=== PATIENT | female | born 1965 | race Caucasian/White ===

== ENCOUNTER 2017-07-18 09:07 | Day surgery (SDC) | payer OTHER, MEDICAID, SELFPAY ==
[2017-07-18 09:44] VITALS: BP 134/89; PULSE 71; RESP 16; TEMP 36.6; O2SAT 99; BMI 31.6
[2017-07-18] MEDS: LACTATED RINGERS 1,000 ML 200 ML IV (09:45)
--- NOTE | 2017-07-18 11:02 | P.HP_ITS ---
History of Present Illness Chief complaint: [id number] Narrative: Akua Pratt is a 52 year old female Here for screening colonoscopy. This is her 1st exam. She has no blood in her stool and no family history of colon cancer. [facility] Surgical History Status post surgery (07/18/08) Social History household members: significant other Meds Home Medications Medication Instructions Recorded Confirmed Type omeprazole 40 mg PO QDAY #0 05/31/12 07/18/17 History NORETHIND/ETHINYL 35 - 1 tab PO QDAY 07/18/17 07/18/17 History (#ORTHO-NOVUM ) albuterol sulfate [Ventolin HFA] 90 mcg INH Q4H 07/18/17 07/18/17 History citalopram 10 mg PO BEDTIME 07/18/17 07/18/17 History Generic Name Dose Route Start Last Admin Trade Name Freq PRN Reason Stop Dose Admin Flumazenil 0.2 mg 07/18/17 07:39 Romazicon IV PRN PRN Benzodiazepine Reversal Lactated Ringer's 1,000 mls @ 200 mls/hr 07/18/17 07:45 07/18/17 09:45 Lactated Ringers IV 200 mls/hr CONT JOSE M Administration Naloxone HCl 0.2 mg 07/18/17 07:39 Narcan IV Q2MIN PRN Opiate Reversal Allergies Allergy/AdvReac Type Severity Reaction Status Date / Time morphine [MORPHINE] Allergy Mild ITCH Verified 07/18/17 09:56 acetaminophen [From PERCOCET] Allergy Unknown Verified 07/18/17 09:56 oxycodone [From PERCOCET] Allergy Unknown Verified 07/18/17 09:56 Review of Systems Review of Systems All systems reviewed & are unremarkable except as noted in HPI and below Psychiatric Comments: Suffers from anxiety on medication. Exam Vital Signs (past 8 hours): Vital Signs - 8 hr 3 07/18/17 09:44 Temperature 97.8 F Pulse Rate 71 Respiratory Rate 16 Blood Pressure 134/89 H Pulse Oximetry 99 Pulse Oximetry 99 Oxygen Delivery Method Room Air Narrative Exam Narrative: Co operative in no apparent distress. Lungs are clear to auscultation without rales or rhonchi. Heart regular rate and rhythm without murmur or gallop. Abdomen is soft nontender without mass. Patient is alert and oriented x3. Assessment & Plan Plan: Plan: I have discussed the procedure and the rationale with the patient including risks of bleeding, perforation which would necessitate a major operation, failure to find remove all lesions and the potential to tattoo. They appeared to understand and wished to proceed.
--- NOTE | 2017-07-18 11:02 | PM.PREOP ---
Pre-operative Note Interval Note Pre-op Check: History & Physical exam performed today H&P completed within 30 days and has changed as indicated here:: None ASA Class (for procedural sedation): I
[2017-07-18] MEDS: fentaNYL 250 MCG/5 ML INJ IV (11:11)
[2017-07-18] MEDS: MIDAZOLAM 5 MG/5 ML VIAL IV (11:11)
--- NOTE | 2017-07-18 11:22 | SUR.OPER ---
post Fentanyl administration patient had episode of bigeminy
--- NOTE | 2017-07-18 11:48 | PM.OP.ENDO ---
Operative Date/Time/Diagnoses - Date of procedure: 07/18/17 Time of procedure: 11:48 Pre-op diagnosis: Screening for colon cancer. This is her 1st exam. She is 52. Post-op diagnosis: same (Diverticulosis of the sigmoid colon- occasional) Procedure & Clinicians Study performed: Colonoscopy Same procedure as scheduled: Yes Indications: Age 52 Surgeon: Cristi Milian Procedure Notes SCOAP/Timeout: Performed Procedure in detail: The patient was placed in the left lateral decubitus position and underwent IV sedation directed by the surgeon consisting of fentanyl and Versed. Digital exam was unremarkable. The scope was inserted and advanced through the rectum into the sigmoid, descending, transverse, and ascending colon. We had to insert a stiffener repositioned the patient blood pressure in order to go through some of this colon. The patient was noted to have occasional sigmoid diverticulosis.. The cecum was reached identified by the ileocecal valve and the appendiceal opening. The ileocecal valve was not cannulated. The scope was gradually brought out. No Polyps were found . The scope ultimately was retroflexed in the rectum. The appearance was[normal except for some diffuse small old hemorrhoids without ulceration]. The scope was removed and the patient tolerated the procedure wellThe patient was placed in the left lateral decubitus position and underwent IV sedation directed by the surgeon consisting of fentanyl and Versed. Digital exam was unremarkable. The scope was inserted and advanced through the rectum into the sigmoid, descending, transverse, and ascending colon. The patient was noted to have occasional sigmoid diverticulosis.. The cecum was reached identified by the ileocecal valve and the appendiceal opening. The ileocecal valve was not cannulated. The scope was gradually brought out. No Polyps were found . The scope ultimately was retroflexed in the rectum. The appearance was[normal except for some diffuse small old hemorrhoids without]. The scope was removed and the patient tolerated the procedure well Scope withdrawal time: 6 min Sedation minutes: 33 Findings: diverticulosis (Sigmoid) and internal hemorrhoids Specimen(s): none sent Complications: none Recommendations: Colonscopy in 10 years Follow up: as needed Disposition: PACU
[2017-07-18 11:49] VITALS: BP 126/78; PULSE 76; RESP 14; TEMP 36.4; O2SAT 95
[2017-07-18 11:55] VITALS: BP 133/81; PULSE 79; RESP 18; O2SAT 98
[2017-07-18 12:00] VITALS: BP 144/95; PULSE 68; RESP 16; TEMP 36.3; O2SAT 100
== END 2017-07-18 12:25 | disposition home or self-care (01) ==
PROVIDERS: Family Provider Family Medicine; PCP Family Medicine; Visit Provider Specialist
PROC: 0DJD8ZZ Inspection of Lower Intestinal Tract, Via Natural or Artificial Opening Endoscopic (ICD-10-PCS; CPT 45378; principal; 2017-07-18 09:45)
DX: Z12.11 Encounter for screening for malignant neoplasm of colon (principal); K57.30 Diverticulosis of large intestine without perforation or abscess without bleeding; K64.8 Other hemorrhoids
CPT/HCPCS: 45378; 99152; 99153; J2250; J3010

== ENCOUNTER → 2017-10-09 09:12 | Outpatient (CLI) | payer OTHER, MEDICAID, SELFPAY ==
--- NOTE | 2017-10-09 | DI.RAD.S_ITS ---
PROCEDURE: XR FOOT RT MIN 3V INDICATIONS: RIGHT FOOT PAIN TECHNIQUE: 3 views of the foot were acquired. COMPARISON: None. FINDINGS: Bones: No fractures or dislocations. No suspicious bony lesions. Soft tissues: No tibiotalar joint effusion. Achilles tendon appears normal. IMPRESSION: No acute or subacute bony abnormality Dictated by: Solo Cevallos M.D. on 10/09/2017 at 9:50 Approved by: Solo Cevallos M.D. on 10/09/2017 at 9:51
== END ==
PROVIDERS: Family Provider Family Medicine; PCP Family Medicine; Visit Provider Nurse Practitioner Family
DX: M79.671 Pain in right foot (principal)
CPT/HCPCS: 73630

== ENCOUNTER → 2018-03-23 10:30 | Outpatient (CLI) | payer OTHER, MEDICAID, SELFPAY ==
[2018-03-23 10:46] LABS: Bacteria Urine None Seen; RBC Urine None Seen (0-5/HPF); WBC Urine None Seen (0-5/HPF)
[2018-03-23 12:15] LABS: Appearance Urine UA CLEAR; Bilirubin Urine UA NEGATIVE (NEGATIVE); Color Urine UA YELLOW; Glucose Urine UA NEGATIVE (Negative); Ketones Urine UA NEGATIVE (NEGATIVE); Leukocyte Esterase Urine UA TRACE (NEGATIVE); Nitrite Urine UA NEGATIVE (Negative); Occult Blood Urine UA NEGATIVE (Negative); Protein Urine UA NEGATIVE (Negative); Urobilinogen Urine UA 0.2 E.U./dL (0.2); pH Urine UA 6.5 (4.5-8.0)
[2018-03-23 12:20] LABS: Culture Indicated Urine Cult Not Indicated; Urine Comments Microscopic Normal
== END ==
PROVIDERS: Family Provider Family Medicine; PCP Family Medicine
DX: M54.5 Low back pain (principal)
CPT/HCPCS: 81001

== ENCOUNTER → 2018-04-20 13:45 | Outpatient (CLI) | payer OTHER, MEDICAID, SELFPAY ==
--- NOTE | 2018-04-20 | DI.CT.S_ITS ---
PROCEDURE: CT ABDOMEN PELVIS W CON INDICATIONS: ABDOMINAL PAIN TECHNIQUE: After the administration of oral and intravenous contrast, 5 mm thick sections acquired from the diaphragms to the symphysis. 5 mm thick coronal and sagittal reformats were performed. For radiation dose reduction, the following was used: automated exposure control, adjustment of mA and/or kV according to patient size. COMPARISON: [facility], [place], ABDOMEN/PELVIS WITH CONTRAST, 05/31/2012, 21:24. FINDINGS: Image quality: Excellent. ABDOMEN: Lung bases: 4 mm nodular density in posterior medial aspect of right lung base is again seen unchanged from 2013 study and likely represent benign process. Heart size is normal. Solid organs: Liver is normal in size and enhancement. There is hepatic steatosis. Gallbladder is surgically absent. Biliary system is non-dilated. Pancreas enhances normally. Spleen is normal in size and enhancement. No adrenal nodules. Kidneys are normal in size and enhancement, without hydronephrosis. Peritoneum and bowel: Stomach, small bowel, and colon loops are normal in caliber and wall thickness. No free fluid or air. The appendix is visualized and is within normal limits. Nodes and vessels: No retroperitoneal or mesenteric adenopathy. Aorta and inferior vena cava are normal in caliber. Miscellaneous: No ventral hernias. PELVIS: Genitourinary: Bladder wall thickness is normal. Uterus and bilateral adnexa show no gross abnormality. Miscellaneous: No inguinal hernias or adenopathy. Bones: No suspicious bony lesions. No vertebral body compression fractures. IMPRESSION: 1. No acute inflammatory process within the abdomen or pelvis. No finding to explain patient's clinical symptoms. 2. Mild hepatic steatosis. Prior cholecystectomy. 3. Stable appearing 4 mm right lower lobe nodule, consistent with benign process. Dictated by: Mark Bhatia M.D. on 04/20/2018 at 16:08 Approved by: Mark Bhatia M.D. on 04/20/2018 at 16:12
== END ==
PROVIDERS: Family Provider Family Medicine; PCP Family Medicine; Visit Provider Family Medicine
DX: R10.9 Unspecified abdominal pain (principal); K76.0 Fatty (change of) liver, not elsewhere classified; R91.1 Solitary pulmonary nodule; Z90.49 Acquired absence of other specified parts of digestive tract
CPT/HCPCS: 74177; Q9967

== ENCOUNTER → 2018-10-07 14:31 | Outpatient (CLI) | payer OTHER, SELFPAY ==
--- NOTE | 2018-10-07 | DI.RAD.S_ITS ---
PROCEDURE: XR CERVICAL SPINE 2V OR 3V INDICATIONS: NECK PAIN TECHNIQUE: 3 view(s) of the cervical spine were acquired. COMPARISON: None. FINDINGS: Bones: No fractures or dislocations to the T1 level. Note is made of moderately severe to severe degenerative disc disease and mild to moderate facet osteoarthritis from C4-C7, with likelihood of spinal and foraminal stenosis at C5-6 and possibly at the levels immediately above and below. The lateral masses of C1 appear intact on the odontoid view. No suspicious bony lesions. Soft tissues: No prevertebral soft tissue swelling. IMPRESSION: No acute trauma found. Moderately severe degenerative disc disease over the middle third of the cervical spine as noted with likelihood of spinal and foraminal stenosis centered on C5-6. Dictated by: Chandrakant Mota M.D. on 10/07/2018 at 15:57 Approved by: Chandrakant Mota M.D. on 10/07/2018 at 15:58
== END ==
PROVIDERS: Family Provider Family Medicine; PCP Family Medicine; Visit Provider Family Medicine
DX: M50.321 Other cervical disc degeneration at C4-C5 level (principal); M47.812 Spondylosis without myelopathy or radiculopathy, cervical region
CPT/HCPCS: 72040

== ENCOUNTER 2019-01-14 05:00 | Emergency (ER) | payer OTHER, MEDICAID, SELFPAY ==
[2019-01-14 05:12] VITALS: BP 141/106; PULSE 85; RESP 18; TEMP 36.8; O2SAT 97
--- NOTE | 2019-01-14 05:22 | ED.BACK ---
HPI - Back Pain/Injury General Chief Complaint: Back Pain/Injury Stated Complaint: cant sleep so much pain/burning in back/arm numb Time Seen by Provider: 01/14/19 05:22 Source: patient Mode of arrival: Ambulatory Limitations: no limitations History of Present Illness HPI Narrative: The patient was injured on the job October 2018. She works for the [email or web address]. She was backing up a tractor, the brake was set. She actually slammed into the back wall, her back hitting against wall. And perhaps suffering whiplash. She was briefly dazed, then recovered. Since that time she has had back issues. She has had mid back pain and lower back pain. additional neck discomfort is resolved. She has been treated with medications, she felt physical therapy. Her primary care doctor has sent her to a undercollar maker. Neurologic testing apparently revealed a deficit to the right leg. She also was noted to have right carpal tunnel syndrome. She has no weakness in the right shoulder, or in the arm. Although she is positive for right CTS, there is no numbness or weakness in the right arm, neurologic findings or in the hand only. She does have low back pain, with pain radiating down the right lateral leg to the right ankle/foot. She has no bowel or bladder incontinence. She is ambulatory. She feels weakness in the right foot. An MRI was discussed over 1 month ago, but has not yet been scheduled to the patient's knowledge. The MRI has to be approved/moderated to L&I. She is here tonight due to back pain rating down her right leg, she cannot sleep. In addition to her current medications she was previously on Neurontin prescribed by her PCM. She has stopped the medication because of feeling ill on the medication, sedation and weight gain. Related Data Previous Rx's Medication Instructions Recorded prednisone 60 mg PO DAILY 5 Days #15 tab 01/14/19 Allergies Allergy/AdvReac Type Severity Reaction Status Date / Time morphine [MORPHINE] Allergy Mild ITCH Verified 07/18/17 09:56 acetaminophen [From PERCOCET] Allergy Unknown Verified 07/18/17 09:56 oxycodone [From PERCOCET] Allergy Unknown Verified 07/18/17 09:56 Review of Systems Review of Systems ROS Unobtainable: All systems reviewed & are unremarkable except as noted in HPI and below Constitutional Constitutional: Denies chills, Denies fever(s), Denies lethargy and Reports weakness Cardiovascular Cardiovascular: Denies chest pain, Denies irregular heart rhythm, Denies lightheadedness, Denies palpitations, Denies dyspnea and Denies orthopnea Respiratory Respiratory: Denies cough, Denies dyspnea and Denies wheezing Gastrointestinal Gastrointestinal: Denies abdominal pain, Denies change in bowel habits, Denies diarrhea, Denies nausea and Denies vomiting Musculoskeletal Musculoskeletal: Reports back pain, Reports muscle weakness, Reports numbness (Right foot) and Denies tingling Integumentary/Breasts Skin/Breast: Denies pruritus, Denies erythema, Denies rash and Denies wounds Neurologic Neurologic: Reports numbness (Right foot), Denies tingling and Reports weakness Endocrine Endocrine: Denies palpitations Allergic/Immunologic Allergic/Immunologic: Denies wheezing Patient History Medical History (Updated 01/14/19 @ 08:09 by Paco Hendricks MD) Acute carpal tunnel syndrome of right wrist (Acute) Lumbar back pain with radiculopathy affecting right lower extremity (Acute) Surgical History (Updated 01/14/19 @ 08:09 by Paco Hendricks MD) No significant past surgical history (Acute) Status post surgery (07/18/08) Social History household members: significant other Smoking Status: Never smoker alcohol intake frequency: a few times a month Substance Use Type: does not use Exam Initial Vital Signs Initial Vital Signs: Vital Signs Temperature 98.2 F 01/14/19 05:12 Pulse Rate 85 01/14/19 05:12 Respiratory Rate 18 01/14/19 05:12 Blood Pressure 141/106 H 01/14/19 05:12 Pulse Oximetry 97 01/14/19 05:12 Const General: cooperative and well developed Nutritional Appearance: well nourished Orientation: alert, awake, oriented x3 and not confused [facility] Head: normocephalic and atraumatic Neck Neck: full ROM and No tender Resp Effort & Inspection: normal respiratory effort, able to speak in complete sentences, no respiratory distress and no use of accessory muscles Auscultation: clear to auscultation bilaterally, no rales, no rhonchi and no wheezes Cardio Rate: regular rate Rhythm: regular rhythm Heart Sounds: S1 normal, S2 normal, no click, no gallops, no murmurs and no rubs Pulses: normal peripheral pulses GI Inspection: non-distended Palpation: soft, no hepatosplenomegaly and No tender Auscultation: normal bowel sounds Back/Spine/Pelvis Back: No CVA tenderness Cervical Spine: cervical ROM normal and No pain with cervical ROM Thoracic/Lumbar Spine: paraspinal tenderness (On the right) and straight leg raise positive (On the right) Sacroiliac Joints: nontender Skin General: no rashes or lesions noted, No jaundice and No petechiae Neuro General: alert, oriented x3 and gait normal Speech: speech normal Other: Decreased light touch sensation in the right lower extremity in the L4 and L5 distribution. Decreased strength with right foot plantar flexion. However, she can toe stand, but was stumbling. Dorsalis pedis pulses are normal both lower extremities. Extrem General: full ROM, no clubbing, cyanosis or edema, no pedal edema and no calf tenderness Right upper extremity: full ROM, shoulder/upper arm (Normal range of motion, normal strength.), elbow/forearm (Normal range of motion, normal strength.), wrist (Positive Tinel's) and hand (No atrophy, no weakness.) Course Course Course Narrative: The patient has right carpal tunnel syndrome, no right upper extremity radiculopathy. She does have right lower extremity radiculopathy. She has apparently gone through nerve conduction studies verifying both the carpal tunnel syndrome as well as the right lower extremity issue. She is already on pain medications, I will give her a 5 day burst of steroids. She has scheduled follow-up with her PCM later this week. I suggested she pressed both her PCM as well as the consulting physician requesting an effort for faster evaluation by MRI. Orders Ordered: Discontinued Medications Ketorolac Tromethamine (Toradol) 60 mg IM NOW ONE Stop: 01/14/19 05:55 Last Admin: 01/14/19 06:07 Dose: 60 mg Documented by: MMCFARL Prednisone (Deltasone) 60 mg PO NOW ONE Stop: 01/14/19 05:55 Last Admin: 01/14/19 06:03 Dose: Not Given Documented by: MMCFARL Prednisone (Deltasone) 60 mg PO NOW ONE Stop: 01/14/19 06:03 Last Admin: 01/14/19 06:07 Dose: 60 mg Documented by: MMCFARL Vital Signs Vital signs: Vital Signs - 8 hr 01/14/19 05:12 01/14/19 06:37 Temperature 98.2 F Pulse Rate 85 81 Respiratory Rate 18 16 Blood Pressure 141/106 H 140/97 H Pulse Oximetry 97 99 Discharge Plan Departure Patient Disposition: Home Clinical Impression: Lumbar back pain with radiculopathy affecting right lower extremity, Acute carpal tunnel syndrome of right wrist Discharge Date/Time: 01/14/19 06:37 Instructions: Carpal Tunnel Syndrome, DI for Back Pain With Sciatica Activity Restrictions/Additional Instructions: You should be using your right wrist splint especially when typing and especially when at work. Continue meloxicam. Prednisone 60 mg daily for 5 days. Follow-up with your doctor to discuss ongoing pain management for the back pain. understand a lumbar MRI is in process, followup that the L&I specialist was moderating the L&I process. Prescriptions: New prednisone 20 mg tablet 60 mg PO DAILY 5 Days Qty: 15 RF: 0 Referrals: Paco Angel MD [Primary Care Provider] -
[2019-01-14] MEDS: predniSONE 20 MG TABLET 60 MG PO (06:07)
[2019-01-14] MEDS: KETOROLAC 60 MG/2 ML VIAL IM (06:07)
[2019-01-14 06:37] VITALS: BP 140/97; PULSE 81; RESP 16; O2SAT 99
== END 2019-01-14 06:37 | disposition home or self-care (01) ==
PROVIDERS: Emergency Provider Emergency Medicine; PCP Family Medicine
DX: M54.16 Radiculopathy, lumbar region (principal); G56.01 Carpal tunnel syndrome, right upper limb; Y99.0 Civilian activity done for income or pay
CPT/HCPCS: 96372; 99282; 99283; J1885

== ENCOUNTER → 2019-02-04 08:31 | Outpatient (CLI) | payer OTHER, MEDICAID, SELFPAY ==
--- NOTE | 2019-02-04 | DI.MRI.S_ITS ---
PROCEDURE: MR LUMBAR SPINE WO CON INDICATIONS: radiculopathy, lumbosacral region TECHNIQUE: Noncontrast sagittal T1 spin echo and T2 fast echo, sagittal STIR, axial T1 and T2 fast spin echo through the lumbar spine. In cases with scoliosis, additional coronal T2 fast spin echo may be performed. COMPARISON: [facility], [place], XR LUMBAR SPINE 2 OR 3 VIEWS, 12/03/2018, 10:15. FINDINGS: Image quality: Excellent. Alignment and Curvature: There is trace retrolisthesis is at L4-L5. Bone Marrow: Marrow is of normal overall signal. No acute vertebral body compression fractures. Spinal Cord: Conus medullaris terminates at the L1-L2 level. Visualized cord demonstrates normal signal and size. Paraspinous Soft Tissues: No paravertebral masses. L1-L2: Normal appearance. L2-L3: Normal appearance. L3-L4: Normal appearance. L4-L5: Normal appearance of intervertebral disc. Moderate right and mild left facet arthropathy. The central canal is patent. No femoral stenosis. L5-S1: Preserved disc height. Mild disc desiccation. There is diffuse posterior disc bulge and posterior central annular tear. Mild bilateral facet arthropathy. The central canal is mildly narrowed. No significant foraminal stenosis. No definitive nerve root impingement. IMPRESSION: 1. Degenerative disc disease at L5-S1 with posterior disc bulge and posterior central annular tear. 2. Moderate to mild degenerative facet disease in the lower lumbar spine. 3. Mild central canal stenosis at L5-S1. 4. No significant foraminal stenosis. Dictated by: Michele Cortes M.D. on 02/04/2019 at 14:08 Approved by: Michele Cortes M.D. on 02/04/2019 at 17:54
== END ==
PROVIDERS: PCP Family Medicine; Visit Provider Preventive Medicine Occupational Medicine
DX: M51.17 Intervertebral disc disorders with radiculopathy, lumbosacral region (principal); M47.26 Other spondylosis with radiculopathy, lumbar region; M47.27 Other spondylosis with radiculopathy, lumbosacral region; M48.07 Spinal stenosis, lumbosacral region
CPT/HCPCS: 72148

== ENCOUNTER 2019-04-18 10:32 | Emergency (ER) | payer OTHER, MEDICAID, SELFPAY ==
[2019-04-18 10:34] VITALS: BP 174/84; PULSE 73; RESP 15; TEMP 36.9; O2SAT 99; BMI 37.0
[2019-04-18 11:37] VITALS: BP 143/91; PULSE 77; RESP 20; O2SAT 98
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
--- NOTE | 2019-04-18 12:02 | DI.RAD.S_ITS ---
PROCEDURE: XR LUMBAR SPINE 2-3V INDICATIONS: injury with low back pain TECHNIQUE: 3 views of the lumbar spine were acquired. COMPARISON: [facility], MR, MR LUMBAR SPINE WO CON, 02/04/2019, 9:17. [facility], CT, ABDOMEN/PELVIS WITH CONTRAST, 05/31/2012, 21:24. [facility], CR, XR CHEST 1V, 04/18/2019, 12:41. [facility], CT, CT CERVICAL SPINE WO CON, 04/18/2019, 12:36. [facility], CT, CT HEAD/BRAIN WO CON, 04/18/2019, 12:36. FINDINGS: Bones: 5 [id number] vertebrae are present. There is normal bony alignment. No vertebral body compression fractures. No suspicious bony lesions. Mild to moderate disc space narrowing is seen at the L5-S1 level. The disc heights otherwise appear well-preserved. Soft tissues: Overlying bowel gas pattern is normal. No suspicious soft tissue calcifications. Cholecystectomy clips are seen. IMPRESSION: No acute bony injury is seen. Focal L5-S1 degenerative change. Dictated by: Vineet Parr M.D. on 04/18/2019 at 12:15 Approved by: Vineet Parr M.D. on 04/18/2019 at 12:16
--- NOTE | 2019-04-18 12:02 | DI.CT.S_ITS ---
PROCEDURE: CT CERVICAL SPINE WO CON INDICATIONS: neck injury with pain TECHNIQUE: Noncontrast 3 mm thick sections acquired from the skull base to the T4 level. Sagittal and coronal reformats were then constructed. For radiation dose reduction, the following was used: automated exposure control, adjustment of mA and/or kV according to patient size. COMPARISON: [facility], CR, XR CERVICAL SPINE 2V OR 3V, 10/07/2018, 14:39. [facility], CT, CT HEAD/BRAIN WO CON, 04/18/2019, 12:36. [facility], CR, XR LUMBAR SPINE 2-3V, 04/18/2019, 12:41. [facility], CR, XR CHEST 1V, 04/18/2019, 12:41. [facility], CR, CERVICAL SPINE 2 OR 3 VIEWS, 11/28/2010, 8:53. FINDINGS: Image quality: This examination is somewhat limited by quantum mottle artifact. Bones: No fractures or dislocations. Visualized superior ribs are intact. Degenerative changes are seen, with mild to moderate disc space narrowing at the C5-C6 level. Partially bridging anterior osteophytes are seen at the C4-C5 level was selected endplate osteophytes are seen at C4-C5 and at C5-C6. Milder degenerative changes are seen elsewhere. Soft tissues: Prevertebral soft tissues are normal in thickness. No paravertebral hematomas. No apical pneumothoraces. IMPRESSION: Degenerative changes, without an acute bony identified. No displaced fractures are seen. Dictated by: Vineet Parr M.D. on 04/18/2019 at 12:13 Approved by: Vineet Parr M.D. on 04/18/2019 at 12:14
--- NOTE | 2019-04-18 12:02 | DI.RAD.S_ITS ---
PROCEDURE: XR CHEST 1V INDICATIONS: right chest wall pain TECHNIQUE: One view of the chest was acquired. COMPARISON: [facility], CR, XR LUMBAR SPINE 2-3V, 04/18/2019, 12:41. [facility], CT, CT CERVICAL SPINE WO CON, 04/18/2019, 12:36. [facility], CT, CT HEAD/BRAIN WO CON, 04/18/2019, 12:36. [facility], CT, PE STUDY (CTA CHEST), 05/31/2012, 21:24. [facility], RG, XR CXR 2V, 10/11/2005, 12:02. FINDINGS: Surgical changes and devices: None. Lungs and pleura: An incomplete inspiratory result is noted, causing a crowded appearance to the lung markings. No focal infiltrates are seen. No pneumothorax or significant pleural effusions are seen. Mediastinum: Mediastinal contours appear normal. Heart size is normal. Bones and chest wall: No suspicious bony lesions. No displaced fractures can be seen. Age-appropriate bony degenerative changes are seen. Overlying soft tissues appear unremarkable. IMPRESSION: Limited portable chest examination, without a significant cardiopulmonary abnormality identified. No displaced fractures can be seen. Dictated by: Vineet Parr M.D. on 04/18/2019 at 12:14 Approved by: Vineet Parr M.D. on 04/18/2019 at 12:15
--- NOTE | 2019-04-18 12:02 | DI.CT.S_ITS ---
PROCEDURE: CT HEAD/BRAIN WO CON INDICATIONS: head ache weakness TECHNIQUE: Noncontrast 4.5 mm thick angled axial sections acquired from the foramen magnum to the vertex, with coronal and sagittal reformats. For radiation dose reduction, the following was used: automated exposure control, adjustment of mA and/or kV according to patient size. COMPARISON: [facility], CR, XR CHEST 1V, 04/18/2019, 12:41. [facility], CR, XR LUMBAR SPINE 2-3V, 04/18/2019, 12:41. [facility], CT, CT CERVICAL SPINE WO CON, 04/18/2019, 12:36. FINDINGS: Image quality: Excellent. CSF spaces: Basal cisterns are patent. No extra-axial fluid collections. Ventricles are normal in size and shape. Brain: No midline shift. No intracranial masses or hemorrhage. Vázquez-white matter interface is normal. Skull and face: Calvarium and visualized facial bones are intact, without suspicious lesions. Sinuses: Visualized sinuses and mastoids are clear. IMPRESSION: Normal intracranial study. No acute intracranial hemorrhage is seen. If there is strong clinical suspicion for an acute stroke, please consider an MRI for further evaluation, as it is more sensitive (assuming that there is no contraindication to MRI). Dictated by: Vineet Parr M.D. on 04/18/2019 at 12:12 Approved by: Vineet Parr M.D. on 04/18/2019 at 12:12
[2019-04-18 13:41] LABS: Add Manual Diff / Slide Review NO; Basophils Absolute Auto 0 /uL (0-100); Basophils Percent Auto 0.7 % (0-2); Eosinophils Absolute Auto 100 /uL (0-450); Eosinophils Percent Auto 2.6 % (2-4); Hematocrit 40.2 % (36-46); Hemoglobin 13.4 g/dL (12.0-16.0); Lymphocytes Absolute Auto 1200 /uL (1100-4500); Lymphocytes Percent Auto 28.5 % (25-40); Mean Corpuscular HGB Conc 33.3 % (30-36); Mean Corpuscular Hemoglobin 29.6 PG (26-34); Monocytes Absolute Auto 300 /uL (0-900); Neutrophils Absolute Auto 2600 /uL (1500-7000); Neutrophils Percent Auto 61.2 % (50-75); Platelet Count 231 X10^3/uL (150-400); Red Blood Cell Count 4.51 X10^6/uL (4.0-5.2); Red Cell Distribution Width 13.5 % (11.6-14.8); White Blood Cell Count 4.3 X10^3/uL (4.5-11.0)
[2019-04-18 14:06] LABS: Alanine Aminotransferase 39 IU/L (<35); Albumin 4.9 g/dL (3.5-5.0); Albumin Globulin Ratio 1.4 (1.0-2.8); Alkaline Phosphatase 71 U/L (38-126); Aspartate Aminotransferase 36 IU/L (14-36); BUN Creatinine Ratio 22.5 (6-22); Bilirubin Total 0.6 mg/dL (0.2-1.3); Blood Urea Nitrogen 18 mg/dL (7-17); Calcium 9.4 mg/dL (8.4-10.2); Carbon Dioxide 27 mmol/L (22-32); Chloride 105 mmol/L (98-107); Creatine Kinase 133 U/L (30-135); Estimated Glomerular Filt Rate > 60.0 mL/min (>60); Globulin 3.6 g/dL (1.7-4.1); Glucose 118 mg/dL (70-100); HEMOLYSIS < 15 (0-50); Magnesium 2.2 mg/dL (1.6-2.3); Potassium 3.9 mmol/L (3.4-5.1); Sodium 142 mmol/L (137-145); Total Protein 8.5 g/dL (6.3-8.2)
[2019-04-18] MEDS: KETOROLAC 60 MG/2 ML VIAL 30 MG IV (14:25)
[2019-04-18] MEDS: SODIUM CHLORIDE 0.9% 1,000 ML 1000 ML IV (14:26)
--- NOTE | 2019-04-18 14:33 | PC.NURSE ---
reports seeing a chiropractor after a work injury. states after she went to the chiropractor she has been having increasing weakness.
== END 2019-04-18 14:55 | disposition home or self-care (01) ==
PROVIDERS: Emergency Provider Emergency Medicine; PCP Family Medicine
DX: M54.2 Cervicalgia (principal); R41.0 Disorientation, unspecified; M54.5 Low back pain; R51 Headache
CPT/HCPCS: 36415; 70450; 71045; 72100; 72125; 80053; 82550; 83735; 85025; 96374; 99284; J1885

== ENCOUNTER 2020-05-15 14:20 | Emergency (ER) | payer OTHER, MEDICAID, SELFPAY ==
[2020-05-15 14:36] VITALS: BP 174/88; PULSE 61; RESP 18; TEMP 36.9; O2SAT 99; BMI 38.0
--- NOTE | 2020-05-15 14:36 | DI.RAD.S_ITS ---
PROCEDURE: XR ANKLE RT MIN 3V INDICATIONS: rolled ankle TECHNIQUE: 3 views of the ankle were acquired. COMPARISON: [facility], , ANKLE 3 VIEWS LEFT, 02/05/2017, 15:54. FINDINGS: Bones: Acute transverse fracture through lateral malleolus is seen without significant displacement or angulation at fracture site. Ankle mortise is congruent. No suspicious intraosseous lesion. Soft tissues: Significant lateral ankle soft tissue swelling is seen. No tibiotalar joint effusion. Achilles tendon appears normal. IMPRESSION: Acute nondisplaced lateral malleolus fracture with overlying soft tissue swelling. Dictated by: Mark Bhatia M.D. on 05/15/2020 at 14:41 Approved by: Mark Bhatia M.D. on 05/15/2020 at 14:42
--- NOTE | 2020-05-15 14:46 | PC.NURSE ---
patient trying to step over dog tripped and fell on foot right ankle lateral side has swelling, tenderness and unable to flex, extend, or rotate. She can put a slight amount of weight on it.
--- NOTE | 2020-05-15 15:42 | ED_ITS ---
HPI - Extremity Injury (Lower) <MICK Villavicencio-BC - Last Filed: 05/15/20 16:29> General Chief Complaint: Extremity Injury, Lower Stated Complaint: Tripped Over Dog, Poss Broken Rt Ankle Time Seen by Provider: 05/15/20 14:42 Source: patient and family Mode of arrival: Family Vehicle Limitations: no limitations History of Present Illness HPI Narrative: The patient is a 55-year-old female nonsmoker who denies pertinent medical history presents with a chief complaint of right ankle pain. She states that she was stepping over a fence, got tangled in a dog and felt a crack on the outside of her right ankle. She took 2 ibuprofen. She states she was able to weightbear. Denies any knee pain. States it is on the outside of her ankle. Denies any previous injuries to the right ankle Related Data Previous Rx's Medication Instructions Recorded cyclobenzaprine 10 mg PO TID PRN #15 tab 04/18/19 naproxen 500 mg PO Q12H PRN #20 tab 04/18/19 hydrocodone-acetaminophen 1 tab PO Q4-6H PRN #14 tab 05/15/20 ondansetron 4 mg PO Q6H PRN #20 tab 05/15/20 Allergies Allergy/AdvReac Type Severity Reaction Status Date / Time morphine [MORPHINE] Allergy Mild ITCH Verified 05/15/20 14:41 acetaminophen [From PERCOCET] Allergy Unknown Verified 05/15/20 14:41 oxycodone [From PERCOCET] Allergy Unknown Verified 05/15/20 14:41 Review of Systems <MICK Villavicencio-BC - Last Filed: 05/15/20 16:29> Review of Systems Narrative: GENERAL: Denies chills, fatigue, malaise, fever, sweats. HEENT: Denies sinus pain, ear pain, sore throat, difficulty swallowing, dizziness. RESPIRATORY: Denies dyspnea, cough, wheezing, hemoptysis, sputum. CARDIOVASCULAR: Denies chest pain, palpitations, orthopnea, edema, GASTROINTESTINAL: Denies nausea, vomiting, abdominal pain, diarrhea, constipation, melena. : Denies dysuria, frequency, incontinence, hematuria, urinary retention. MUSCULOSKELETAL: See HPI SKIN: Denies rash, skin lesions, or other NEUROLOGIC: Denies weakness, headache, numbness, change in speech, confusion, seizures, incoordination. PSYCHIATRIC: No concerning psychosocial issues. 12 point review of systems is negative except for those stated above Patient History <SANTHOSH Villavicencio - Last Filed: 05/15/20 16:29> Medical History (Updated 05/15/20 @ 16:24 by SANTHOSH Villavicencio) Acute carpal tunnel syndrome of right wrist Lumbar back pain with radiculopathy affecting right lower extremity Surgical History No significant past surgical history Status post surgery (07/18/08) Social History household members: significant other Smoking Status: Never smoker Smoking Status: Never smoker alcohol intake frequency: a few times a month Substance Use Type: does not use Exam <SANTHOSH Villavicencio - Last Filed: 05/15/20 16:29> Narrative Exam Narrative: GENERAL: This is a well-nourished, well-developed patient, in no acute distress. HEAD: Atraumatic. Normocephalic. No temporal or scalp tenderness. EYES: Pupils equal round and reactive. Extraocular motions intact. No scleral icterus. No injection or drainage. ENT: Nose without bleeding, purulent drainage or septal hematoma. Wearing a mask. Airway patent. NECK: Trachea midline. No JVD or lymphadenopathy. Supple, nontender, no meningeal signs. CARDIOVASCULAR: Regular rate and rhythm RESPIRATORY: No cough. No increased respiratory effort. No accessory muscle use. EXTREMITIES: Swelling and pain to palpation noted of lateral aspect of right ankle over lateral malleolus. Positive pedal pulses right foot. No pain to palpation right knee, able to flex right knee to 90?. NEURO: AOx3. SKIN: No rash or erythema on visible skin Initial Vital Signs Initial Vital Signs: Vital Signs Temperature 98.4 F 05/15/20 14:36 Pulse Rate 61 05/15/20 14:36 Respiratory Rate 18 05/15/20 14:36 Blood Pressure 174/88 H 05/15/20 14:36 Pulse Oximetry 99 05/15/20 14:36 <Mitzi Gallagher DO - Last Filed: 05/16/20 09:22> Initial Vital Signs Initial Vital Signs: Vital Signs Temperature 98.4 F 05/15/20 14:36 Pulse Rate 61 05/15/20 14:36 Respiratory Rate 18 05/15/20 14:36 Blood Pressure 174/88 H 05/15/20 14:36 Pulse Oximetry 99 05/15/20 14:36 Procedures <SANTHOSH Villavicencio - Last Filed: 05/15/20 16:29> Orthopedic Splinting/Casting Injury #1: Side: right Lower Extremity Injury Location: ankle Lower Extremity Immobilizer: boot orthosis Post splinting neuro exam: intact Post splinting vascular exam: intact Placed by: Nursing Additional Comments: Patient declined crutches Scores <SANTHOSH Villavicencio - Last Filed: 05/15/20 16:29> GCS [place] coma scale eye opening: Spontaneous [place] coma scale verbal response: Orientated Anthony coma scale motor response: Obey commands Anthony coma scale total score: 15 Course <SANTHOSH Villavicencio - Last Filed: 05/15/20 16:29> Orders Ordered: Discontinued Medications Hydrocodone Bitart/Acetaminophen (Hydrocodone/Acet 5/325 Tablet) 1 tab PO NOW ONE Stop: 05/15/20 15:55 Last Admin: 05/15/20 16:05 Dose: 1 tab Documented by: MADISON Ondansetron HCl (Ondansetron 4 Mg Odt) 4 mg SL NOW ONE Stop: 05/15/20 15:55 Last Admin: 05/15/20 16:05 Dose: 4 mg Documented by: MADISON Vital Signs Vital signs: Vital Signs - 8 hr 05/15/20 14:36 Temperature 98.4 F Pulse Rate 61 Respiratory Rate 18 Blood Pressure 174/88 H Pulse Oximetry 99 <Mitzi Gallagher DO - Last Filed: 05/16/20 09:22> Orders Ordered: Discontinued Medications Hydrocodone Bitart/Acetaminophen (Hydrocodone/Acet 5/325 Tablet) 1 tab PO NOW ONE Stop: 05/15/20 15:55 Last Admin: 05/15/20 16:05 Dose: 1 tab Documented by: MADISON Ondansetron HCl (Ondansetron 4 Mg Odt) 4 mg SL NOW ONE Stop: 05/15/20 15:55 Last Admin: 05/15/20 16:05 Dose: 4 mg Documented by: ZGELEYN Vital Signs Vital signs: Vital Signs - 8 hr 05/15/20 14:36 Temperature 98.4 F Pulse Rate 61 Respiratory Rate 18 Blood Pressure 174/88 H Pulse Oximetry 99 MDM - Extremity Injury (Lower) <Aileen RojasMICK-BC - Last Filed: 05/15/20 16:29> Imaging Data Extremity x-ray #1: Radiologist's Impression: [address] [place] [id number] ReportSigned Patient: Akua Khalil GMR#: [id number]: 1965Acct:[id number]/Sex: 55 / FDate of Service: 05/15/20Loc: EDAccession Number: [id number] Procedure: XR ankle RT min 3V Ordering Provider: Mitzi Gallagher D.O. PROCEDURE: XR ANKLE RT MIN 3V INDICATIONS: rolled ankle TECHNIQUE: 3 views of the ankle were acquired. COMPARISON: [facility], ANKLE 3 VIEWS LEFT, 02/05/2017, 15:54. FINDINGS: Bones: Acute transverse fracture through lateral malleolus is seen without significant displacement or angulation at fracture site. Ankle mortise is congruent. No suspicious intraosseous lesion. Soft tissues: Significant lateral ankle soft tissue swelling is seen. No tibiotalar joint effusion. Achilles tendon appears normal. IMPRESSION: Acute nondisplaced lateral malleolus fracture with overlying soft tissue swelling. Dictated by: Mark Bhatia M.D. on 05/15/2020 at 14:41 Approved by: Mark Bhatia M.D. on 05/15/2020 at 14:42 [facility] Narrative Medical decision making narrative: The patient is a 55-year-old female who presents with a chief complaint of acute right-sided ankle pain after rolling her ankle and feeling a crack. She has a nondisplaced lateral malleolus fracture. She is neurovascularly intact throughout stay in the emergency department. X-rays viewed with Dr. Gallagher and patient was placed in a boot with follow-up with primary care provider/Orthopedics. Patient was given hydrocodone for pain which she tolerated well. I discussed at length rest ice compression elevation as well as coming back to the ER for acute concerns such as decreased circulation. Patient has no questions or concerns upon discharge s brunildaes understanding return precautions as well as follow-up care Discharge Plan Departure Patient Disposition: Home Clinical Impression: Nondisplaced fracture of lateral malleolus Qualifiers: Encounter type: initial encounter Fracture type: closed Laterality: right Qualified Code(s): S82.64XA - Nondisplaced fracture of lateral malleolus of right fibula, initial encounter for closed fracture Instructions: How To Perform RICE (Rest, Ice, Compress, Elevate), How to Use a Walking Boot, DI for Malleolar Fracture Activity Restrictions/Additional Instructions: Thank you for trusting us with your care today. As discussed, you have a nondisplaced fracture of your lateral malleolus. This is essentially the bottom of your fibula. We have placed you in a walking boot. Please use rest ice compression elevation. I sent medications to [facility] in [place]. Please follow-up with primary care provider in the next few days. I have also given contact information to [facility]. Please come back to the emergency department for any acute concerns such as decreased circulation. You have been prescribed narcotic medications. While on these medications you cannot drive or operate heavy machinery. Additionally you cannot sign legal documents or perform any duties such as this. 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 Prescriptions: New hydrocodone-acetaminophen 5-325 mg tablet 1 tab PO Q4-6H PRN (Reason: pain) Qty: 14 RF: 0 ondansetron 4 mg tablet,disintegrating 4 mg PO Q6H PRN (Reason: nausea and vomiting) Qty: 20 RF: 0 No Action naproxen 500 mg tablet,delayed release (DR/EC) 500 mg PO Q12H PRN (Reason: pain) Qty: 20 RF: 0 cyclobenzaprine 10 mg tablet 10 mg PO TID PRN (Reason: muscle spasm) Qty: 15 RF: 0 Referrals: [facility] [Provider Group] Paco Angel MD [Primary Care Provider] - Stand Alone Forms: Work Release Note <Mitzi Gallagher DO - Last Filed: 05/16/20 09:22> Cosign ED Attending Tyrese Attestation: I was immediately available in the department for consultation. Documentation has been reviewed. I agree with assessment and plan.
[2020-05-15] MEDS: HYDROCODONE/ACET 5/325 TABLET 1 TAB PO (16:05)
[2020-05-15] MEDS: ONDANSETRON 4 MG ODT SL (16:05)
[2020-05-15 16:38] VITALS: BP 168/93; PULSE 66; RESP 14; O2SAT 98
== END 2020-05-15 16:41 | disposition home or self-care (01) ==
PROVIDERS: Emergency Provider Nurse Practitioner Family; PCP Family Medicine
DX: S82.64XA Nondisplaced fracture of lateral malleolus of right fibula, initial encounter for closed fracture (principal); X50.1XXA Overexertion from prolonged static or awkward postures, initial encounter
CPT/HCPCS: 73610; 99283

== ENCOUNTER 2021-03-05 21:12 | Emergency (ER) | payer OTHER, MEDICAID, SELFPAY ==
[2021-03-05 21:14] VITALS: BP 177/91; PULSE 82; RESP 20; TEMP 36.4; O2SAT 97; BMI 36.6
--- NOTE | 2021-03-05 21:14 | DI.RAD.S_ITS ---
PROCEDURE: XR CHEST 1V INDICATIONS: chest pain TECHNIQUE: One view of the chest was acquired. COMPARISON: [facility], CR, XR CHEST 1V, 04/18/2019, 12:41. FINDINGS: Surgical changes and devices: None. Lungs and pleura: Lungs are clear. No pleural effusions or pneumothorax. Mediastinum: Mediastinal contours appear normal. Heart size is normal. Bones and chest wall: No suspicious bony lesions. Overlying soft tissues appear unremarkable. IMPRESSION: 1. No acute cardiopulmonary disease. Dictated by: Maximino Serna M.D. on 03/05/2021 at 22:21 Approved by: Maximino Serna M.D. on 03/05/2021 at 22:22
[2021-03-05 21:39] VITALS: PULSE 78; RESP 15; O2SAT 94
[2021-03-05 21:40] VITALS: BP 159/78; PULSE 77; RESP 17; O2SAT 97
[2021-03-05 22:00] VITALS: BP 143/66; PULSE 75; RESP 26; O2SAT 97
[2021-03-05 22:00] LABS: Add Manual Diff / Slide Review NO; Basophils Absolute Auto 0 /uL (0-100); Basophils Percent Auto 0.5 % (0-2); Eosinophils Absolute Auto 100 /uL (0-450); Eosinophils Percent Auto 2.1 % (2-4); Hematocrit 34.4 % (36-46); Hemoglobin 11.7 g/dL (12.0-16.0); Lymphocytes Absolute Auto 1800 /uL (1100-4500); Lymphocytes Percent Auto 30.9 % (25-40); Mean Corpuscular HGB Conc 33.9 % (30-36); Mean Corpuscular Hemoglobin 29.5 PG (26-34); Mean Corpuscular Volume 87.2 fL (80-100); Monocytes Absolute Auto 500 /uL (0-900); Monocytes Percent Auto 8.2 % (3-14); Neutrophils Absolute Auto 3400 /uL (1500-7000); Neutrophils Percent Auto 58.3 % (50-75); Platelet Count 225 X10^3/uL (150-400); Red Blood Cell Count 3.95 X10^6/uL (4.0-5.2); Red Cell Distribution Width 13.2 % (11.6-14.8); White Blood Cell Count 5.8 X10^3/uL (4.5-11.0)
[2021-03-05 22:04] LABS: Prothrombin Time 11.2 SECONDS (10.1-12.7)
[2021-03-05 22:07] LABS: PTT Partial Thromboplastin Tim 35 SECONDS (26.4-36.2)
[2021-03-05 22:09] LABS: Alanine Aminotransferase 42 IU/L (<35); Albumin 4.3 g/dL (3.5-5.0); Albumin Globulin Ratio 1.4 (1.0-2.8); Alkaline Phosphatase 54 U/L (38-126); Aspartate Aminotransferase 37 IU/L (14-36); BUN Creatinine Ratio 22.1 (6-22); Bilirubin Total 0.3 mg/dL (0.2-1.3); Blood Urea Nitrogen 23 mg/dL (7-17); Calcium 9.1 mg/dL (8.4-10.2); Carbon Dioxide 28 mmol/L (22-32); Chloride 108 mmol/L (98-107); Creatine Kinase 96 U/L (30-135); Estimated Glomerular Filt Rate 54.6 mL/min (>60); Glucose 118 mg/dL (70-100); HEMOLYSIS < 15 (0-50); Lipase 174 U/L (23-300); Magnesium 2.1 mg/dL (1.6-2.3); Potassium 4.1 mmol/L (3.4-5.1); Sodium 140 mmol/L (137-145); Total Protein 7.3 g/dL (6.3-8.2)
[2021-03-05 22:21] LABS: Troponin I < 0.012 ng/mL (0.01-0.034)
[2021-03-05 22:30] VITALS: BP 149/72; PULSE 79; RESP 35; O2SAT 96
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
[2021-03-05 22:54] LABS: COVID19 -Nasal RAPID Negative (Negative)
== END 2021-03-05 22:53 | disposition home or self-care (01) ==
PROVIDERS: Emergency Provider Emergency Medicine; PCP Family Medicine
DX: R07.89 Other chest pain (principal); R00.2 Palpitations; Z20.822 Contact with and (suspected) exposure to COVID-19
CPT/HCPCS: 36415; 71045; 80053; 82550; 83690; 83735; 84484; 85025; 85610; 85730; 87635; 93005; 99284; C9803

== ENCOUNTER 2021-03-06 10:46 | Emergency (ER) | payer OTHER, MEDICAID, SELFPAY ==
[2021-03-06 11:28] VITALS: BP 176/93; PULSE 72; RESP 18; TEMP 36.7; O2SAT 99; BMI 36.6
--- NOTE | 2021-03-06 14:40 | ED.GENADULT ---
HPI - General Adult General Chief complaint: Syncope Stated complaint: Feeling faint, right breast numbness. 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 She was seen in the emergency room yesterday with complete workup that was entirely unremarkable. She started her new job today and while she was in her 1st meeting continued to feel these waves of weakness and is here for further evaluation. She does note that she has been more stressed recently. She notes that her blood pressures have been running significantly high with systolics in the 170s to 190s with recently added lisinopril at 5 mg. She had tried amlodipine and found that it did not work well for her. Over the past number of months with job changes she has gained 20-30 lb and believes that this is contributing to all of her symptoms as well. Today she describes these waves of global weakness persisting and has waves of these during our conversation. She seems more emotionally distressed than physically distressed at this time. She denies overt palpitations. She notes that her sclera have been bloodshot more recently particularly in the morning. She has no abdominal pain, vomiting, diarrhea, nausea. No orthopnea or dyspnea. Related Data Previous Rx's Medication Instructions Recorded cyclobenzaprine 10 mg tablet 10 mg PO TID PRN #15 tab 04/18/19 naproxen 500 mg tablet,delayed 500 mg PO Q12H PRN #20 tab 04/18/19 release hydrocodone 5 mg-acetaminophen 325 1 tab PO Q4-6H PRN #14 tab 05/15/20 mg tablet ondansetron 4 mg disintegrating 4 mg PO Q6H PRN #20 tab 05/15/20 tablet hydrochlorothiazide 25 mg tablet 25 mg PO DAILY #30 tab 03/06/21 lisinopril 10 mg tablet 10 mg PO DAILY #30 tab 03/06/21 Allergies Allergy/AdvReac Type Severity Reaction Status Date / Time morphine [MORPHINE] Allergy Mild ITCH Verified 03/06/21 11:33 oxycodone [From PERCOCET] Allergy Unknown Verified 03/06/21 11:33 Review of Systems Review of Systems Narrative: Remainder of complete review of systems is otherwise unremarkable except for that included in the HPI. Patient History Medical History (Updated 03/06/21 @ 15:04 by Altagracia Rondon MD) Acute carpal tunnel syndrome of right wrist Hypertension Lumbar back pain with radiculopathy affecting right lower extremity Surgical History No significant past surgical history Status post surgery (07/18/08) Social History household members: significant other Smoking Status: Never smoker Smoking Status: Never smoker alcohol intake frequency: a few times a month Substance Use Type: does not use Exam Narrative Exam Narrative: General: Healthy appearing, in no acute distress. Able to give a complete and coherent history. Well-nourished well-developed HEENT: Moist mucous membranes, normal sclera with reactive pupils, Neck: No JVD, supple Respiratory: Lungs are clear to auscultation Full and symmetrical air movement Cardiac: Regular rate and rhythm no murmurs no bruits Abdomen: Soft, nontender, good bowel tones, no flank pain Skin: Warm and dry, no rashes Neurologic: Grossly neurologically intact with no obvious asymmetries or abnormalities Extremities: No trauma, well perfused Psych: Cooperative, appropriate insight and affect Initial Vital Signs Initial Vital Signs: Vital Signs Temperature 98.1 F 03/06/21 11:28 Pulse Rate 72 03/06/21 11:28 Respiratory Rate 18 03/06/21 11:28 Blood Pressure 176/93 H 03/06/21 11:28 Pulse Oximetry 99 03/06/21 11:28 Course Vital Signs Vital signs: Vital Signs - 8 hr 03/06/21 11:28 03/06/21 14:44 Temperature 98.1 F Pulse Rate 72 77 Respiratory Rate 18 Blood Pressure 176/93 H 167/90 H Pulse Oximetry 99 99 Medical Decision Making MDM Narrative Medical decision making narrative: 56-year-old woman with waves of global weakness that have been bothering her. Significant increased situational stressors recently and in fact she was fired while she was sitting in the waiting room to see us today. She notes significant weight gain since the summer and feels that this is also affecting her. She is having difficulties with her blood pressure and is finding that numbers are consistently with systolics in the 170-190s. We had a long discussion and opted to not repeat any blood work today after doing it does last night. She is not having any acute clinical findings suggestive of AR, stroke, severe infection or sepsis. I would like to be a bit more assertive in controlling her blood pressures with goals below 140 initially. Will ask her to increase her lisinopril from 5-10 mg and add 25 mg of hydrochlorothiazide. She is more than willing to do this. I asked her to check blood pressures approximately 2 hours after taking medications and then again before bedtime. I suggested that she take no action on the numbers other than writing them down to review with her primary care doctor. We have taken the opportunity to schedule an appointment 03/12, @1015, DR Villegas to follow-up with all of these issues. Discharge Plan Departure Patient Disposition: Home Clinical Impression: Weakness, Hypertension, Situational, disturbance, acute Instructions: DI for High Blood Pressure, DI for Anxiety -- Adult Activity Restrictions/Additional Instructions: Thank you for coming in today As we discussed, I do not think we need to repeat all of the workup that was done last night. Last night's workup was very reassuring and I am not seeing anything to suggest heart attack, stroke or other life-threatening explanation for these waves of weakness that you are experiencing. I suspect that the sensation has multiple factors 1st, we need to be more assertive Carly treating her blood pressure. Your goal is at least 140/80 or lower. I want you to increase your lisinopril to 10 mg a day and add hydrochlorothiazide, a gentle water pill, at 25 mg a day. Please keep track of your blood pressures 2-3 hours after you take her medication in the morning and again before bedtime. You do not need to do anything if the numbers are elevated other than write them down and review them with Dr. Angel when you see him next week Prescriptions were electronically transmitted to [facility] for you I would encourage you to get back to your more aggressive walking regimen, it seemed to work well for you in managing stress as well as helping with weight. I hope that you are a perfect fit with your new job, it will be interesting to hear what you finally choose I wish you the best Prescriptions: New lisinopril 10 mg tablet 10 mg PO DAILY Qty: 30 0RF hydrochlorothiazide 25 mg tablet 25 mg PO DAILY Qty: 30 0RF No Action hydrocodone-acetaminophen 5-325 mg tablet 1 tab PO Q4-6H PRN (Reason: pain) Qty: 14 0RF ondansetron 4 mg tablet,disintegrating 4 mg PO Q6H PRN (Reason: nausea and vomiting) Qty: 20 0RF naproxen 500 mg tablet,delayed release (DR/EC) 500 mg PO Q12H PRN (Reason: pain) Qty: 20 0RF cyclobenzaprine 10 mg tablet 10 mg PO TID PRN (Reason: muscle spasm) Qty: 15 0RF Referrals: Paco Angel MD [Primary Care Provider] -
[2021-03-06 14:44] VITALS: BP 167/90; PULSE 77; O2SAT 99
[2021-03-06 15:20] VITALS: BP 167/90; PULSE 69
[2021-03-06] MEDS: lisinopriL 10 MG TABLET PO (15:20)
== END 2021-03-06 15:30 | disposition home or self-care (01) ==
PROVIDERS: Emergency Provider Emergency Medicine; PCP Family Medicine
DX: R53.1 Weakness (principal); I10 Essential (primary) hypertension; F43.0 Acute stress reaction
CPT/HCPCS: 99283

== ENCOUNTER → 2022-03-23 08:46 | Outpatient (CLI) | payer OTHER, MEDICAID, SELFPAY ==
[2022-03-23 10:15] LABS: Influenza A - CEPHEID Flu A NEGATIVE (NEGATIVE); Influenza B - CEPHEID Flu B NEGATIVE (NEGATIVE); Respiratory Syncytial Virus Negative (Negative)
[2022-03-23 10:19] LABS: COVID-19 CEPHEID 4-PLEX PCR POSITIVE (Negative)
== END ==
PROVIDERS: PCP Family Medicine; Visit Provider Physician Assistant Medical
DX: J06.9 Acute upper respiratory infection, unspecified (principal)
CPT/HCPCS: 0241U

== ENCOUNTER 2022-07-16 09:15 | Inpatient (IN) | payer OTHER, MEDICAID, SELFPAY ==
[2022-07-16] VITALS (86 sets, daily range): BP systolic 98–198; BP diastolic 52–104; PULSE 73–176; RESP 13–36; TEMP 36.2–36.8; O2SAT 93–100; BMI 36.0; BMI 35.9
--- NOTE | 2022-07-16 09:30 | DI.RAD.S_ITS ---
PROCEDURE: XR CHEST 1V INDICATIONS: palpitations TECHNIQUE: One view of the chest was acquired. COMPARISON: [facility], CR, XR CHEST 1V, 03/05/2021, 21:17. [facility], CR, XR CHEST 1V, 04/18/2019, 12:41. FINDINGS: Surgical changes and devices: None. Lungs and pleura: Low lung volumes. Prominent right hilar structures are stable. No dense consolidation or pleural effusion. Mediastinum: Heart size is at the upper limit of normal. Bones and chest wall: No suspicious bony lesions. Overlying soft tissues appear unremarkable. IMPRESSION: No acute radiographic abnormality. Heart size is at the upper limit of normal. Dictated by: Bhavik Up M.D. on 07/16/2022 at 10:03 Approved by: Bhavik Up M.D. on 07/16/2022 at 10:03
--- NOTE | 2022-07-16 09:31 | ED.GENADULT ---
HPI - General Adult General Chief complaint: Arrhythmia/Palpitations Stated complaint: heart pausing/fluttering/lightheaded/weak T-7 Time Seen by Provider: 07/16/22 09:23 Source: patient Mode of arrival: Ambulatory Limitations: no limitations History of Present Illness HPI narrative: Patient is a 57-year-old female who arrives in the emergency department for evaluation of approximately 7 days of having feelings that her heart is beating fast and pausing and fluttering. She also states she is feeling lightheaded. No chest pain or shortness of breath. Has not passed out. No new medications. Has not tried anything for the symptoms prior to arrival. She has had palpitations in the past. Recently did have a stress test and an echocardiogram at the end of last year for arrhythmias. These studies were relatively unremarkable. She does state that she is having some anxiety and has had quite a bit of stress recently with her job what she thought was causing her symptoms. She thought that it would just go away on its own but when it did not that is why she came in today. Related Data Previous Rx's Medication Instructions Recorded cyclobenzaprine 10 mg tablet 10 mg PO TID PRN muscle spasm #15 04/18/19 tabs naproxen 500 mg tablet,delayed 500 mg PO Q12H PRN pain #20 tabs 04/18/19 release hydrocodone 5 mg-acetaminophen 325 1 tab PO Q4-6H PRN pain #14 tabs 05/15/21 mg tablet hydrochlorothiazide 25 mg tablet 25 mg PO DAILY #30 tabs 03/06/21 lisinopril 10 mg tablet 10 mg PO DAILY #30 tabs 03/06/21 Allergies Allergy/AdvReac Type Severity Reaction Status Date / Time morphine [MORPHINE] Allergy Mild ITCH Verified 07/03/21 17:44 oxycodone [From PERCOCET] Allergy Unknown Verified 07/03/21 17:44 Review of Systems Review of Systems ROS Unobtainable: All systems reviewed & are unremarkable except as noted in HPI and below Patient History Medical History Acute carpal tunnel syndrome of right wrist Hypertension Lumbar back pain with radiculopathy affecting right lower extremity Surgical History No significant past surgical history Status post surgery (07/18/08) Social History household members: significant other Smoking Status: Never smoker Smoking Status: Never smoker alcohol intake frequency: a few times a month Substance Use Type: does not use Exam Initial Vital Signs Initial Vital Signs: Vital Signs Pulse Oximetry 94 07/16/22 09:19 Const General: cooperative, comfortable and No ill appearing HENMT Head: normal to inspection and normocephalic Resp Effort & Inspection: normal respiratory effort Auscultation: clear to auscultation bilaterally Cardio Rate: tachycardic Rhythm: abnormal rhythm GI Inspection: normal to inspection and non-distended Skin General: no rashes or lesions noted Neuro General: patient alert, patient awake and moves all extremities Extrem General: capillary refill normal Course Orders Ordered: ED Orders 07/16/22 09:22 Complete Blood Count AUTO DIFF Stat Comprehensive Metabolic Panel Stat Lipase Stat Magnesium Stat Thyroid Stimulating Hormone Stat Troponin & CK Cardiac Panel Stat 07/16/22 09:25 EKG-12 Lead Stat 07/16/22 09:29 COVID19 -Nasal RAPID Stat 07/16/22 09:30 XR chest 1V Stat Acetaminophen (Acetaminophen 325 Mg Tablet) 650 mg PO Q6H PRN PRN Reason: Fever/Mild Pain (1-3) Al Hydrox/Mg Hydrox/Simethicone (Mag Hydrox/Alum/Simeth 30 Ml Udc) 30 ml PO Q6HR PRN PRN Reason: Dyspepsia Magnesium Hydroxide (Magnesium Hydroxide 30 Ml Udc) 30 ml PO DAILY PRN PRN Reason: Constipation Metoprolol Tartrate (Metoprolol Ir 25 Mg Tablet) 25 mg PO Q6HR JOSE M Naloxone HCl (Naloxone 0.4 Mg/Ml Vial) 0.2 mg IV Q2MIN PRN PRN Reason: Opiate Reversal Ondansetron HCl (Ondansetron 4 Mg Odt) 4 mg PO Q6H PRN PRN Reason: nausea and vomiting Discontinued Medications Diltiazem HCl (Diltiazem 5 Mg/Ml Sdv) 10 mg IV NOW ONE Stop: 07/16/22 09:31 Last Admin: 07/16/22 09:38 Dose: 10 mg Documented By: VANGIE Diltiazem HCl (Diltiazem 5 Mg/Ml Sdv) 10 mg IV NOW ONE Stop: 07/16/22 10:12 Last Admin: 07/16/22 10:13 Dose: 10 mg Documented By: VANGIE Sodium Chloride (Normal Saline 0.9%) 1,000 mls @ 125 mls/hr IV CONT JOSE M Last Infusion: 07/16/22 14:28 Dose: 0 mls/hr Documented By: Admin: 07/16/22 10:11 Dose: 125 mls/hr Documented By: VANGIE DILTIAZEM (Diltiazem 125 Mg/125 Ml-D5w) 125 mg in 125 mls @ 5 mls/hr IV TITRATE JOSE M; Protocol Last Titration: 07/16/22 14:27 Dose: 10 mg/hr, 10 mls/hr Documented By: Titration: 07/16/22 10:47 Dose: 10 mg/hr, 10 mls/hr Documented By: Titration: 07/16/22 10:05 Dose: 7.5 mg/hr, 7.5 mls/hr Documented By: Admin: 07/16/22 09:46 Dose: 5 mg/hr, 5 mls/hr Documented By: VANGIE Metoprolol Tartrate (Metoprolol Ir 25 Mg Tablet) 25 mg PO NOW ONE Stop: 07/16/22 11:16 Last Admin: 07/16/22 11:33 Dose: 25 mg Documented By: VANGIE Metoprolol Tartrate (Metoprolol Ir 25 Mg Tablet) 25 mg PO NOW ONE Stop: 07/16/22 12:40 Last Admin: 07/16/22 12:49 Dose: 25 mg Documented By: VANGIE Vital Signs Vital signs: Vital Signs - 8 hr 07/16/22 09:26 07/16/22 09:19 07/16/22 09:20 Temperature 98.2 F Pulse Rate 151 H 73 Respiratory Rate 19 Blood Pressure 123/94 H Pulse Oximetry 99 94 100 Oxygen Delivery Method Room Air 07/16/22 09:20 07/16/22 09:25 07/16/22 09:25 Temperature Pulse Rate 169 H Respiratory Rate 14 Blood Pressure 115/73 123/94 H Pulse Oximetry 100 Oxygen Delivery Method 07/16/22 09:30 07/16/22 09:36 07/16/22 09:36 Temperature Pulse Rate 142 H 162 H Respiratory Rate 24 14 Blood Pressure 198/90 H Pulse Oximetry 100 100 Oxygen Delivery Method 07/16/22 09:41 07/16/22 09:41 07/16/22 09:46 Temperature Pulse Rate 167 H Respiratory Rate 23 Blood Pressure 181/104 H 174/76 H Pulse Oximetry 99 Oxygen Delivery Method 07/16/22 09:46 07/16/22 09:51 07/16/22 09:51 Temperature Pulse Rate 165 H 166 H Respiratory Rate 16 17 Blood Pressure 133/63 Pulse Oximetry 98 98 Oxygen Delivery Method 07/16/22 09:55 07/16/22 09:55 07/16/22 10:00 Temperature Pulse Rate 170 H 165 H Respiratory Rate 17 21 Blood Pressure 140/65 Pulse Oximetry 97 96 Oxygen Delivery Method 07/16/22 10:01 07/16/22 10:01 07/16/22 10:05 Temperature Pulse Rate 149 H Respiratory Rate 28 H Blood Pressure 168/67 H 126/72 Pulse Oximetry 97 Oxygen Delivery Method 07/16/22 10:05 07/16/22 10:11 07/16/22 10:11 Temperature Pulse Rate 166 H 147 H Respiratory Rate 18 14 Blood Pressure 152/69 H Pulse Oximetry 97 96 Oxygen Delivery Method 07/16/22 10:15 07/16/22 10:15 07/16/22 10:28 Temperature Pulse Rate 170 H Respiratory Rate 23 Blood Pressure 128/79 125/60 Pulse Oximetry 96 Oxygen Delivery Method 07/16/22 10:28 07/16/22 10:30 07/16/22 10:32 Temperature Pulse Rate 157 H 159 H Respiratory Rate 16 15 Blood Pressure 140/60 Pulse Oximetry 97 94 Oxygen Delivery Method 07/16/22 10:32 07/16/22 10:36 07/16/22 10:36 Temperature Pulse Rate 171 H 171 H Respiratory Rate 19 22 Blood Pressure 118/58 L Pulse Oximetry 96 96 Oxygen Delivery Method 07/16/22 10:41 07/16/22 10:41 07/16/22 10:45 Temperature Pulse Rate 162 H Respiratory Rate 19 Blood Pressure 141/65 H 131/56 L Pulse Oximetry Oxygen Delivery Method 07/16/22 10:45 07/16/22 10:50 07/16/22 10:50 Temperature Pulse Rate 166 H 166 H Respiratory Rate 36 H 16 Blood Pressure 130/62 Pulse Oximetry 97 Oxygen Delivery Method 07/16/22 10:56 07/16/22 10:56 07/16/22 11:00 Temperature Pulse Rate 171 H 167 H Respiratory Rate 16 16 Blood Pressure 121/58 L Pulse Oximetry 95 97 Oxygen Delivery Method 07/16/22 11:06 07/16/22 11:06 07/16/22 11:10 Temperature Pulse Rate 169 H Respiratory Rate 25 H Blood Pressure 134/58 L 109/58 L Pulse Oximetry 98 Oxygen Delivery Method 07/16/22 11:10 07/16/22 11:15 07/16/22 11:15 Temperature Pulse Rate 163 H 170 H Respiratory Rate 22 15 Blood Pressure 125/70 Pulse Oximetry 97 96 Oxygen Delivery Method 07/16/22 11:21 07/16/22 11:21 07/16/22 11:25 Temperature Pulse Rate 176 H Respiratory Rate 19 Blood Pressure 137/53 L 121/69 Pulse Oximetry 97 Oxygen Delivery Method 07/16/22 11:25 07/16/22 11:30 07/16/22 12:00 Temperature Pulse Rate 158 H 154 H 169 H Respiratory Rate 18 27 H 16 Blood Pressure Pulse Oximetry 97 98 96 Oxygen Delivery Method 07/16/22 12:30 07/16/22 12:35 07/16/22 12:35 Temperature Pulse Rate 151 H 151 H Respiratory Rate 22 19 Blood Pressure 135/60 Pulse Oximetry 95 96 Oxygen Delivery Method Room Air 07/16/22 12:46 07/16/22 12:46 07/16/22 13:00 Temperature Pulse Rate 174 H 162 H Respiratory Rate 16 19 Blood Pressure 109/56 L Pulse Oximetry 93 94 Oxygen Delivery Method 07/16/22 13:01 07/16/22 13:01 07/16/22 13:16 Temperature Pulse Rate 155 H Respiratory Rate 15 Blood Pressure 99/52 L 108/53 L Pulse Oximetry 94 Oxygen Delivery Method Room Air 07/16/22 13:16 Temperature Pulse Rate 168 H Respiratory Rate 15 Blood Pressure Pulse Oximetry 96 Oxygen Delivery Method Room Air Medical Decision Making Medical Records Medical records reviewed: Yes I reviewed the patient's medical records. Lab Data Lab results reviewed: Yes I reviewed the patient's lab results. 07/16/22 09:22 07/16/22 09:22 Labs: Lab Results 07/16/22 07/16/22 07/16/22 Range/Units 09:22 09:22 09:22 WBC 5.9 (4.5-11.0) X10^3/uL RBC 4.63 (4.0-5.2) X10^6/uL Hgb 13.7 (12.0-16.0) g/dL Hct 40.7 (36-46) % MCV 87.8 (80-100) fL MCH 29.5 (26-34) PG MCHC 33.6 (30-36) % RDW 13.5 (11.6-14.8) % Plt Count 270 (150-400) X10^3/uL Neut % (Auto) 53.8 (50-75) % Lymph % (Auto) 34.9 (25-40) % [place] % (Auto) 8.1 (3-14) % Eos % (Auto) 2.5 (2-4) % Baso % (Auto) 0.7 (0-2) % Neut # (Auto) 3200 (3463-0924) /uL Lymph # (Auto) 2100 (5763-2213) /uL [place] # (Auto) 500 (0-900) /uL Eos # (Auto) 100 (0-450) /uL Baso # (Auto) 0 (0-100) /uL Sodium 140 (137-145) mmol/L Potassium 4.1 (3.4-5.1) mmol/L Chloride 104 (98-107) mmol/L Carbon Dioxide 28 (22-32) mmol/L BUN 18 H (7-17) mg/dL Creatinine 0.97 (0.52-1.04) mg/dL Estimated GFR > 60 (>60) mL/min BUN/Creatinine Ratio 18.6 (6-22) Glucose 110 H (70-100) mg/dL Calcium 9.0 (8.4-10.2) mg/dL Magnesium 2.2 (1.6-2.3) mg/dL Total Bilirubin 0.7 (0.2-1.3) mg/dL AST 27 (14-36) IU/L ALT 35 H (<35) IU/L Alkaline Phosphatase 65 (38-126) U/L Total Creatine Kinase 84 (30-135) U/L CK-MB (CK-2) TNP CK-MB (CK-2) Rel Index TNP Troponin I < 0.012 (0.01-0.034) ng/mL Total Protein 7.6 (6.3-8.2) g/dL Albumin 4.4 (3.5-5.0) g/dL Globulin 3.2 (1.7-4.1) g/dL Albumin/Globulin Ratio 1.4 (1.0-2.8) Lipase 140 (23-300) U/L TSH 3.14 (0.47-4.68) uIU/mL SARS-CoV-2 (PCR) (Negative) 07/16/22 Range/Units 09:29 WBC (4.5-11.0) X10^3/uL RBC (4.0-5.2) X10^6/uL Hgb (12.0-16.0) g/dL Hct (36-46) % MCV (80-100) fL MCH (26-34) PG MCHC (30-36) % RDW (11.6-14.8) % Plt Count (150-400) X10^3/uL Neut % (Auto) (50-75) % Lymph % (Auto) (25-40) % [place] % (Auto) (3-14) % Eos % (Auto) (2-4) % Baso % (Auto) (0-2) % Neut # (Auto) (8769-5980) /uL Lymph # (Auto) (7216-0547) /uL [place] # (Auto) (0-900) /uL Eos # (Auto) (0-450) /uL Baso # (Auto) (0-100) /uL Sodium (137-145) mmol/L Potassium (3.4-5.1) mmol/L Chloride (98-107) mmol/L Carbon Dioxide (22-32) mmol/L BUN (7-17) mg/dL Creatinine (0.52-1.04) mg/dL Estimated GFR (>60) mL/min BUN/Creatinine Ratio (6-22) Glucose (70-100) mg/dL Calcium (8.4-10.2) mg/dL Magnesium (1.6-2.3) mg/dL Total Bilirubin (0.2-1.3) mg/dL AST (14-36) IU/L ALT (<35) IU/L Alkaline Phosphatase (38-126) U/L Total Creatine Kinase (30-135) U/L CK-MB (CK-2) CK-MB (CK-2) Rel Index Troponin I (0.01-0.034) ng/mL Total Protein (6.3-8.2) g/dL Albumin (3.5-5.0) g/dL Globulin (1.7-4.1) g/dL Albumin/Globulin Ratio (1.0-2.8) Lipase (23-300) U/L TSH (0.47-4.68) uIU/mL SARS-CoV-2 (PCR) Negative (Negative) Urine Dip Bedside Urine Glucose Negative Bedside Urine Bilirubin - Negative Bedside Urine Ketone - Negative Urine Specific [place] 1.005 Bedside Urine Occult Blood - Negative Bedside Urine pH 7.0 Bedside Urine Protein - Negative Bedside Urine Urobilinogen - Negative Bedside Urine Nitrite - Negative Bedside Urine Leukocytes +/- 15 Esterase Point of care testing: Urine Dip Bedside Urine Glucose Negative Bedside Urine Bilirubin - Negative Bedside Urine Ketone - Negative Urine Specific [place] 1.005 Bedside Urine Occult Blood - Negative Bedside Urine pH 7.0 Bedside Urine Protein - Negative Bedside Urine Urobilinogen - Negative Bedside Urine Nitrite - Negative Bedside Urine Leukocytes +/- 15 Esterase Imaging Data Chest x-ray: Radiologist's Impression: PROCEDURE:? XR CHEST 1V ? INDICATIONS:? palpitations ? TECHNIQUE:? One view of the chest was acquired.? ? COMPARISON:? [facility], CR, XR CHEST 1V, 03/05/2021, 21:17.? [facility], CR, XR CHEST 1V, 04/18/2019, 12:41. ? FINDINGS:? ? Surgical changes and devices:? None.? ? Lungs and pleura:? Low lung volumes.? Prominent right hilar structures are stable.? No dense consolidation or pleural effusion. ? Mediastinum:? Heart size is at the upper limit of normal. ? Bones and chest wall:? No suspicious bony lesions.? Overlying soft tissues appear unremarkable.? ? IMPRESSION:? No acute radiographic abnormality.? Heart size is at the upper limit of normal. ECG Data Attestation: I personally reviewed and interpreted this ECG as follows: Interpretation: Undetermined rhythm Ventricular rate of 146 QRS 84 QTC 414 Some artifact noted MDM Narrative Medical decision making narrative: Patient does have a very abnormal rhythm which causes her to have periods of sinus beats but then what appears to be either SVT or atrial fibrillation. These faster tachycardic beats last anywhere from 10-20 beats and then she will have another sinus beat or 2 then potentially a PVC and then the symptoms returned. She does seem to be symptomatic with this. She is had symptoms for the past 7 days. She is not on anticoagulation. Not a candidate for cardioversion. Has had some arrhythmia histories in the past but no specific diagnosis. Patient was started on a Cardizem drip. This only minimally improved her heart rate. I did discuss the case with Dr. barksdale with cardiology who recommended checking electrolytes, stress test, echocardiogram and switching the diltiazem to a beta-antoinette. Patient was given oral metoprolol. She was kept on the Cardizem drip during this time. Minimal improvement of her heart rate. She was given a 2nd 25 mg dose of metoprolol. This potentially improved her heart rate somewhat but she was certainly was not significantly rate controlled. Patient was not hypotensive. No chest pain. Discussed the case with Dr. Angel who is the patient's primary doctor. We will admit for further evaluation and treatment. Discharge Plan Departure Patient Disposition: Admitted As Inpatient Clinical Impression: Tachycardia Admit Date/Time: 07/16/22 13:29 Admit Provider: Paco Angel
[2022-07-16] MEDS: dilTIAZem 5 MG/ML SDV 10 MG IV ×2 (09:38→10:13)
[2022-07-16 09:43] LABS: Add Manual Diff / Slide Review NO; Basophils Absolute Auto 0 /uL (0-100); Basophils Percent Auto 0.7 % (0-2); Eosinophils Absolute Auto 100 /uL (0-450); Eosinophils Percent Auto 2.5 % (2-4); Hematocrit 40.7 % (36-46); Hemoglobin 13.7 g/dL (12.0-16.0); Lymphocytes Absolute Auto 2100 /uL (1100-4500); Lymphocytes Percent Auto 34.9 % (25-40); Mean Corpuscular HGB Conc 33.6 % (30-36); Mean Corpuscular Hemoglobin 29.5 PG (26-34); Mean Corpuscular Volume 87.8 fL (80-100); Monocytes Absolute Auto 500 /uL (0-900); Monocytes Percent Auto 8.1 % (3-14); Neutrophils Absolute Auto 3200 /uL (1500-7000); Neutrophils Percent Auto 53.8 % (50-75); Platelet Count 270 X10^3/uL (150-400); Red Blood Cell Count 4.63 X10^6/uL (4.0-5.2); Red Cell Distribution Width 13.5 % (11.6-14.8); White Blood Cell Count 5.9 X10^3/uL (4.5-11.0)
[2022-07-16] MEDS: DILTIAZEM 125 MG/125 ML PIGGYBACK IV (09:46)
[2022-07-16 09:53] LABS: Alanine Aminotransferase 35 IU/L (<35); Albumin 4.4 g/dL (3.5-5.0); Albumin Globulin Ratio 1.4 (1.0-2.8); Alkaline Phosphatase 65 U/L (38-126); Aspartate Aminotransferase 27 IU/L (14-36); BUN Creatinine Ratio 18.6 (6-22); Bilirubin Total 0.7 mg/dL (0.2-1.3); Blood Urea Nitrogen 18 mg/dL (7-17); Carbon Dioxide 28 mmol/L (22-32); Chloride 104 mmol/L (98-107); Creatine Kinase 84 U/L (30-135); Estimated Glomerular Filt Rate > 60 mL/min (>60); Globulin 3.2 g/dL (1.7-4.1); Glucose 110 mg/dL (70-100); HEMOLYSIS < 15 (0-50); Lipase 140 U/L (23-300); Magnesium 2.2 mg/dL (1.6-2.3); Potassium 4.1 mmol/L (3.4-5.1); Sodium 140 mmol/L (137-145); Total Protein 7.6 g/dL (6.3-8.2)
[2022-07-16 10:04] LABS: Troponin I < 0.012 ng/mL (0.01-0.034)
[2022-07-16] MEDS: SODIUM CHLORIDE 0.9% 1,000 ML 125 ML IV (10:11)
[2022-07-16 10:32] LABS: Thyroid Stimulating Hormone 3.14 uIU/mL (0.47-4.68)
[2022-07-16 10:41] LABS: COVID19 -Nasal RAPID Negative (Negative)
[2022-07-16] MEDS: METOPROLOL IR 25 MG TABLET PO ×3 (11:33→23:16)
--- NOTE | 2022-07-16 13:39 | PM.HP.1 ---
History of Present Illness History of Present Illness Date Patient Seen: 07/16/22 Time Patient Seen: 13:40 Date of Onset of Symptoms: 07/09/22 Chief complaint: heart pausing/fluttering/lightheaded/weak T-7 Narrative: Patient is a 57-year-old with history of anxiety but other plata no major issues who has been having palpitations sure some time actually. Patient recently had a negative echo and a normal treadmill. Over the last week things have gotten worse. She has not made any change in diet or medication both [id number] or otherwise. She did start taking her diuretic some time ago. She is had no chest pain or other change says she feels sometimes lightheaded and not feeling very well when this gets to be more intense. It is become increasingly intense over the last 48 hours. She feels this interesting feeling in her chest and then sometimes she feels lightheaded it comes and goes but now seems more like staying consistently. She is otherwise denies any illicit drugs or other problems. Has a history of hypertension but no other changes. She is had no fevers or chills no urinary changes no bowel changes. No dyspnea with exertion. [facility] Medical History Acute carpal tunnel syndrome of right wrist Hypertension Lumbar back pain with radiculopathy affecting right lower extremity Surgical History No significant past surgical history Status post surgery (07/18/08) Social History household members: significant other Smoking Status: Never smoker Meds Home Medications and Allergies Home Medications Medication Instructions Recorded Confirmed Type cyclobenzaprine 10 mg tablet 10 mg PO TID PRN muscle spasm #15 04/18/19 07/03/21 Rx tabs naproxen 500 mg tablet,delayed 500 mg PO Q12H PRN pain #20 tabs 04/18/19 07/03/21 Rx release hydrocodone 5 mg-acetaminophen 325 1 tab PO Q4-6H PRN pain #14 tabs 05/15/20 07/03/21 Rx mg tablet ondansetron 4 mg disintegrating 4 mg PO Q6H PRN nausea and 05/15/20 07/03/21 Rx tablet vomiting #20 tabs hydrochlorothiazide 25 mg tablet 25 mg PO DAILY #30 tabs 03/06/21 07/03/21 Rx lisinopril 10 mg tablet 10 mg PO DAILY #30 tabs 03/06/21 07/03/21 Rx Allergies Allergy/AdvReac Type Severity Reaction Status Date / Time morphine [MORPHINE] Allergy Mild ITCH Verified 07/03/21 17:44 oxycodone [From PERCOCET] Allergy Unknown Verified 07/03/21 17:44 Review of Systems Review of Systems Narrative: All negative except above Exam Vital Signs (past 8 hours): - 07/16/22 09:26 07/16/22 09:19 07/16/22 09:20 Temperature 98.2 F Pulse Rate 151 H 73 Respiratory Rate 19 Blood Pressure 123/94 H Pulse Oximetry 99 94 100 Oxygen Delivery Method Room Air 07/16/22 09:20 07/16/22 09:25 07/16/22 09:25 Temperature Pulse Rate 169 H Respiratory Rate 14 Blood Pressure 115/73 123/94 H Pulse Oximetry 100 Oxygen Delivery Method 07/16/22 09:30 07/16/22 09:36 07/16/22 09:36 Temperature Pulse Rate 142 H 162 H Respiratory Rate 24 14 Blood Pressure 198/90 H Pulse Oximetry 100 100 Oxygen Delivery Method 07/16/22 09:41 07/16/22 09:41 07/16/22 09:46 Temperature Pulse Rate 167 H Respiratory Rate 23 Blood Pressure 181/104 H 174/76 H Pulse Oximetry 99 Oxygen Delivery Method 07/16/22 09:46 07/16/22 09:51 07/16/22 09:51 Temperature Pulse Rate 165 H 166 H Respiratory Rate 16 17 Blood Pressure 133/63 Pulse Oximetry 98 98 Oxygen Delivery Method 07/16/22 09:55 07/16/22 09:55 07/16/22 10:00 Temperature Pulse Rate 170 H 165 H Respiratory Rate 17 21 Blood Pressure 140/65 Pulse Oximetry 97 96 Oxygen Delivery Method 07/16/22 10:01 07/16/22 10:01 07/16/22 10:05 Temperature Pulse Rate 149 H Respiratory Rate 28 H Blood Pressure 168/67 H 126/72 Pulse Oximetry 97 Oxygen Delivery Method 07/16/22 10:05 07/16/22 10:11 07/16/22 10:11 Temperature Pulse Rate 166 H 147 H Respiratory Rate 18 14 Blood Pressure 152/69 H Pulse Oximetry 97 96 Oxygen Delivery Method 07/16/22 10:15 07/16/22 10:15 07/16/22 10:28 Temperature Pulse Rate 170 H Respiratory Rate 23 Blood Pressure 128/79 125/60 Pulse Oximetry 96 Oxygen Delivery Method 07/16/22 10:28 07/16/22 10:30 07/16/22 10:32 Temperature Pulse Rate 157 H 159 H Respiratory Rate 16 15 Blood Pressure 140/60 Pulse Oximetry 97 94 Oxygen Delivery Method 07/16/22 10:32 07/16/22 10:36 07/16/22 10:36 Temperature Pulse Rate 171 H 171 H Respiratory Rate 19 22 Blood Pressure 118/58 L Pulse Oximetry 96 96 Oxygen Delivery Method 07/16/22 10:41 07/16/22 10:41 07/16/22 10:45 Temperature Pulse Rate 162 H Respiratory Rate 19 Blood Pressure 141/65 H 131/56 L Pulse Oximetry Oxygen Delivery Method 07/16/22 10:45 07/16/22 10:50 07/16/22 10:50 Temperature Pulse Rate 166 H 166 H Respiratory Rate 36 H 16 Blood Pressure 130/62 Pulse Oximetry 97 Oxygen Delivery Method 07/16/22 10:56 07/16/22 10:56 07/16/22 11:00 Temperature Pulse Rate 171 H 167 H Respiratory Rate 16 16 Blood Pressure 121/58 L Pulse Oximetry 95 97 Oxygen Delivery Method 07/16/22 11:06 07/16/22 11:06 07/16/22 11:10 Temperature Pulse Rate 169 H Respiratory Rate 25 H Blood Pressure 134/58 L 109/58 L Pulse Oximetry 98 Oxygen Delivery Method 07/16/22 11:10 07/16/22 11:15 07/16/22 11:15 Temperature Pulse Rate 163 H 170 H Respiratory Rate 22 15 Blood Pressure 125/70 Pulse Oximetry 97 96 Oxygen Delivery Method 07/16/22 11:21 07/16/22 11:21 07/16/22 11:25 Temperature Pulse Rate 176 H Respiratory Rate 19 Blood Pressure 137/53 L 121/69 Pulse Oximetry 97 Oxygen Delivery Method 07/16/22 11:25 07/16/22 11:30 07/16/22 12:00 Temperature Pulse Rate 158 H 154 H 169 H Respiratory Rate 18 27 H 16 Blood Pressure Pulse Oximetry 97 98 96 Oxygen Delivery Method 07/16/22 12:30 07/16/22 12:35 07/16/22 12:35 Temperature Pulse Rate 151 H 151 H Respiratory Rate 22 19 Blood Pressure 135/60 Pulse Oximetry 95 96 Oxygen Delivery Method Room Air 07/16/22 12:46 07/16/22 12:46 07/16/22 13:00 Temperature Pulse Rate 174 H 162 H Respiratory Rate 16 19 Blood Pressure 109/56 L Pulse Oximetry 93 94 Oxygen Delivery Method 07/16/22 13:01 07/16/22 13:01 07/16/22 13:16 Temperature Pulse Rate 155 H Respiratory Rate 15 Blood Pressure 99/52 L 108/53 L Pulse Oximetry 94 Oxygen Delivery Method Room Air 07/16/22 13:16 Temperature Pulse Rate 168 H Respiratory Rate 15 Blood Pressure Pulse Oximetry 96 Oxygen Delivery Method Room Air Oxygen Delivery Method Room Air Narrative Exam Narrative: Alert female smiling in no acute distress. HEENT exam mucous membranes moist neck supple without adenopathy JVD or bruits lungs are clear heart is got an irregular rate and rhythm without murmurs clicks rubs or gallops abdomen is soft positive bowel sounds nontender extremities without cyanosis clubbing edema. Objective Labs 07/16/22 09:22 07/16/22 09:22 Labs: Laboratory Results - last 24 hr 07/16/22 07/16/22 07/16/22 09:22 09:22 09:22 WBC 5.9 RBC 4.63 Hgb 13.7 Hct 40.7 MCV 87.8 MCH 29.5 MCHC 33.6 RDW 13.5 Plt Count 270 Neut % (Auto) 53.8 Lymph % (Auto) 34.9 [place] % (Auto) 8.1 Eos % (Auto) 2.5 Baso % (Auto) 0.7 Neut # (Auto) 3200 Lymph # (Auto) 2100 [place] # (Auto) 500 Eos # (Auto) 100 Baso # (Auto) 0 Sodium 140 Potassium 4.1 Chloride 104 Carbon Dioxide 28 BUN 18 H Creatinine 0.97 Estimated GFR > 60 BUN/Creatinine Ratio 18.6 Glucose 110 H Calcium 9.0 Magnesium 2.2 Total Bilirubin 0.7 AST 27 ALT 35 H Alkaline Phosphatase 65 Total Creatine Kinase 84 CK-MB (CK-2) TNP CK-MB (CK-2) Rel Index TNP Troponin I < 0.012 Total Protein 7.6 Albumin 4.4 Globulin 3.2 Albumin/Globulin Ratio 1.4 Lipase 140 TSH 3.14 SARS-CoV-2 (PCR) 07/16/22 09:29 WBC RBC Hgb Hct MCV MCH MCHC RDW Plt Count Neut % (Auto) Lymph % (Auto) [place] % (Auto) Eos % (Auto) Baso % (Auto) Neut # (Auto) Lymph # (Auto) [place] # (Auto) Eos # (Auto) Baso # (Auto) Sodium Potassium Chloride Carbon Dioxide BUN Creatinine Estimated GFR BUN/Creatinine Ratio Glucose Calcium Magnesium Total Bilirubin AST ALT Alkaline Phosphatase Total Creatine Kinase CK-MB (CK-2) CK-MB (CK-2) Rel Index Troponin I Total Protein Albumin Globulin Albumin/Globulin Ratio Lipase TSH SARS-CoV-2 (PCR) Negative Assessment & Plan Assessment & Plan narrative: Tachycardia. Significant elevation. With moderately low blood pressure. With some symptoms. Uncontrolled with diltiazem drip and beta-antoinette in the emergency room. Patient has had negative workup for cardiac evaluation. Her electrolytes are all normal. But will recheck tomorrow. Will try beta-antoinette orally and see if we can get her controlled. Patient is lightheaded will have to see what happens. Interestingly she is not in a consistent rhythm and it comes and goes. And is very difficult to Andrzej Muñoz and manage. Emergency room doctor briefly discussed with conveyor belt installer. But I suspect we will have to have them see her. Defined rhythm for us and then make recommendation on treatment. Otherwise no major issues or complaints. Will admit with tele. Currently not compatible with outpatient management. Anxiety. Stable at this time. History of hypertension. Not an issue blood pressure low at this time will follow and hold usual meds. Code status full GI prophylaxis not needed DVT prophylaxis should be ambulatory. Okay for SCDs. Disposition. Will be here some time. Until we can figure out exactly how to control her rate. Hopefully we can get conveyor belt installer to help us with that.
--- NOTE | 2022-07-16 16:32 | DI.ECHO.S_ITS ---
[facility] +---------+ : : [address] : [place] : : : : [id number] : : : : Phone: [phone]+ Echocardiogram Report + + :Name: SOLEDAD PARDO Study Date: 07/17/2022 Height: 64 in : :[facility] ReadingLocation: Weight: 209 lb : : Gender: Female BSA: 2.0 m2 : :: 1965 Age: 57 yrs BP: 109/57 mmHg: :Reason For Study: ATRIAL FIBRILLATION : :Ordering Physician: MIK, : :RADHA Performed By: Jaimie Grimes : :Referring: RADHA HOUSER : + + Interpretation Summary Left ventricular systolic function appears to be at least mild to moderately reduced, particularly during the salvos of rapid rate, with the ejection fraction ranging between 30 to 60% depending upon the RR interval and appears slightly less dynamic compared to previous study. Diastolic function cannot be assessed. The right ventricle is mildly enlarged and appears slightly larger compared to the previous study but with grossly normal systolic function. Right ventricular systolic pressure is estimated at 34 mmHg with a CVP of 15 mmHg, and is likely higher compared to the previous study. Both atria are normal in size but with a fairly prominent Doppler jet suggesting a left to right atrial shunt, consistent with a small to moderate- sized atrial septal defect that was not seen on the previous study. There is moderate tricuspid regurgitation and mild pulmonic valve regurgitation that are more prominent compared to the previous study. The patient was in a sinus rhythm but with frequent salvos of rapid atrial fibrillation interspersed with sinus rhythm with heart rates in the 115-130 range, new from the previous exam. Procedure: A two-dimensional transthoracic echocardiogram with color flow and Doppler was performed. The study quality was technically adequate. Comparison is made with the echocardiogram of 01/23/2022. The injection was performed through an intravenous line in the left arm. Patient was scanned mostly supine thorughout exam. The patient had salvos of rapid atrial fibrillation interspersed with sinus rhythm with rates in the 115-130 range, new from the previous exam. Left Ventricle: The left ventricle is normal in size and wall thickness. The estimated left ventricular end diastolic volume is 58 ml. This is unchanged compared to the previous study. Probable mild to moderately reduced systolic function with considerable bdcg-hy-[id number] variability due to the salvos of rapid atrial fibrillation with the ejection fraction ranging between 30 to 60%, depending upon the RR interval. There were no obvious focal wall motion abnormalities although a moderate dyssynchronous contraction pattern is noted on some beats. Contractility appears to be less dynamic compared to the previous study, particularly during the rapid rate. Diastolic function could not be accurately assessed due to atrial fibrillation. Right Ventricle: The right ventricle is mildly dilated. The right ventricular systolic function is normal. This is larger compared to the previous study. Atria: Both atria are normal in size. The interatrial septum visually appears to be intact but with a fairly prominent Doppler jet from left to right, consistent with a small to moderate-sized atrial septal defect. This was not seen on the previous study. Mitral Valve: The mitral valve is normal in structure and function. There is trace mitral regurgitation. Aortic Valve: The aortic valve is grossly normal. The aortic valve opens well. There is no aortic valve stenosis. There is trace aortic regurgitation. Tricuspid Valve: The tricuspid valve leaflets are thin and pliable. There is moderate tricuspid regurgitation. Compared to the prior echo exam, there has been an increase in TR severity. The right ventricular systolic pressure is estimated to be at least 34 mmHg based on an estimated right atrial pressure of 15 mm Hg. This is higher compared to the previous study. Pulmonic Valve: The pulmonic valve is not well seen, but is grossly normal. There is mild pulmonic regurgitation. This is more prominent compared to the previous study. Great Vessels: The aortic root is normal size. The ascending aorta could not be visualized. The IVC is dilated (diameter is greater than 2.1 cm) and it collapses less than 50% with a sniff. This suggests a high right atrial pressure of 15 mm Hg. Pericardium/ Pleura There is no pericardial effusion. There is no pleural effusion. MMode/2D Measurements & Calculations LVIDd: 4.7 cm LVOT diam: 2.1 cm LVIDs: 3.2 cm Ao root diam: 3.3 cm FS: 31.8 % asc Aorta Diam: 3.3 cm IVSd: 0.95 cm Ao Arch Diam (Prox Trans): 3.2 cm LVPWd: 1.00 cm LV feliz. diameter/BSA (cm/m^2): 2.4 LV sys. diameter/BSA (cm/m^2): 1.6 LA A2 area: 19.2 cm2 RA long axis: 6.1 cm LA A4 area: 21.9 cm2 RA area: 18.3 cm2 LA length (vol): 6.4 cm RA vol: 46.5 ml LA vol: 55.8 ml RA : 23.3 ml/m2 LA vol index: 28.0 ml/m2 IVC diam: 2.5 cm RVD1 (basal): 4.3 cm RVD2 (mid): 3.5 cm TAPSE: 2.2 cm Doppler Measurements & Calculations Ao V2 max: 130.9 cm/sec LVOT Max Ryder: 115.0 cm/sec Ao V2 mean: 87.3 cm/sec LV V1 max P.3 mmHg Ao max P.0 mmHg LV V1 VTI: 22.2 cm Ao mean P.6 mmHg KENDRICK(I,D): 3.4 cm2 Ao V2 VTI: 23.3 cm KENDRICK(V,D): 3.1 cm2 sev ratio: 0.95 KENDRICK indexed to BSA (cm^2/m^2): 1.7 MV E max ryder: 49.5 cm/sec TR max ryder: 266.7 cm/sec MV A max ryder: 75.5 cm/sec TR max P.5 mmHg MV E/A: 0.66 PA V2 max: 111.5 cm/sec Med Peak E' Ryder: 8.2 cm/sec PA V2 mean: 74.2 cm/sec E/E' med: 6.1 PA mean P.5 mmHg Lat Peak E' Ryder: 10.2 cm/sec PA pr(Accel): 46.5 mmHg E/E' lat: 4.8 E/e' average: 5.4 MV dec time: 0.33 sec SV(LVOT): 78.8 ml Reading Physician:04:45 PM
[2022-07-16] MEDS: VERAPAMIL 2.5 MG/ML VIAL 5 MG IV (16:44)
--- NOTE | 2022-07-16 17:38 | PC.NURSE ---
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 Dr Chaudhary contacted via phone, then was able to bring monitor into room to see pt., Dr Chaudhary agrees that pt is in rapid A-Fib with pauses. Order for pt to have 5mg Verapamil IVP over 2 minutes. This nurse pushed verapamil with no effect, updated Dr Chaudhary, he will order digoxin IVP. Will continue to treat and monitor as ordered.
[2022-07-16] MEDS: DIGOXIN 500 MCG/2 ML AMPUL IV (17:59)
[2022-07-16 18:39] LABS: MRSA (Nasal) PCR Not Detected (Not Detect)
[2022-07-16] MEDS: AMIODARONE 150 MG/100 ML PIGGYBACK 600 MG IV (19:47)
--- NOTE | 2022-07-16 19:53 | P.TELICUCN_ITS ---
History of Present Illness Consult details IF CAMERA ACTIVATED, patient seen via real-time interactive audiovisual communication: Camera activated Chief complaint: heart pausing/fluttering/lightheaded/weak T-7 Consent obtained for tele-career education teacher care: Yes Patient Location: ICU Provider location (State): [place] Other participants/roles: RN Narrative: 57 year old woman with history of only anxiety presenting with palpitations - admitted to the ICU for further manageemnt of afib RVR . thus far it has been resistant to cardizem, lopressor ( made her hypotensive as well) and digoxin. currently HR in 180s, ut she is HD stable. [facility] Medical History Acute carpal tunnel syndrome of right wrist Hypertension Lumbar back pain with radiculopathy affecting right lower extremity Surgical History No significant past surgical history Status post surgery (07/18/08) Social History household members: significant other Smoking Status: Never smoker Current Medications Current Medications Medications: Home Medications cyclobenzaprine 10 mg tablet 10 mg PO TID PRN muscle spasm #15 tabs 04/18/19 [Rx Confirmed 07/03/21] naproxen 500 mg tablet,delayed release 500 mg PO Q12H PRN pain #20 tabs 04/18/19 [Rx Confirmed 07/03/21] hydrocodone 5 mg-acetaminophen 325 mg tablet 1 tab PO Q4-6H PRN pain #14 tabs 05/15/20 [Rx Confirmed 07/03/21] hydrochlorothiazide 25 mg tablet 25 mg PO DAILY #30 tabs 03/06/21 [Rx Confirmed 07/03/21] lisinopril 10 mg tablet 10 mg PO DAILY #30 tabs 03/06/21 [Rx Confirmed 07/03/21] Visit Medications (administered) Generic Name Dose Route Start Last Admin Trade Name Freq PRN Reason Stop Dose Admin Metoprolol Tartrate 25 mg 07/16/22 18:00 07/16/22 18:30 Metoprolol Ir 25 Mg Tablet PO Not Given Q6HR JOSE M Exam Vital Signs (past 8 hours): - 07/16/22 12:00 07/16/22 12:30 07/16/22 12:35 Temperature Pulse Rate 169 H 151 H 151 H Respiratory Rate 16 22 19 Blood Pressure Pulse Oximetry 96 95 96 Oxygen Delivery Method Room Air Oxygen Flow Rate 07/16/22 12:35 07/16/22 12:46 07/16/22 12:46 Temperature Pulse Rate 174 H Respiratory Rate 16 Blood Pressure 135/60 109/56 L Pulse Oximetry 93 Oxygen Delivery Method Oxygen Flow Rate 07/16/22 13:00 07/16/22 13:01 07/16/22 13:01 Temperature Pulse Rate 162 H 155 H Respiratory Rate 19 15 Blood Pressure 99/52 L Pulse Oximetry 94 94 Oxygen Delivery Method Room Air Oxygen Flow Rate 07/16/22 13:16 07/16/22 13:16 07/16/22 13:30 Temperature Pulse Rate 168 H Respiratory Rate 15 Blood Pressure 108/53 L 112/56 L Pulse Oximetry 96 Oxygen Delivery Method Room Air Oxygen Flow Rate 07/16/22 13:30 07/16/22 13:45 07/16/22 13:45 Temperature Pulse Rate 145 H 167 H Respiratory Rate 16 21 Blood Pressure 107/53 L Pulse Oximetry 95 96 Oxygen Delivery Method Room Air Oxygen Flow Rate 07/16/22 14:00 07/16/22 14:01 07/16/22 14:01 Temperature Pulse Rate 151 H 146 H Respiratory Rate 20 22 Blood Pressure 110/65 Pulse Oximetry 96 94 Oxygen Delivery Method Room Air Oxygen Flow Rate 07/16/22 14:16 07/16/22 14:16 07/16/22 14:30 Temperature Pulse Rate 164 H 159 H Respiratory Rate 34 H 16 Blood Pressure 110/55 L Pulse Oximetry 95 96 Oxygen Delivery Method Oxygen Flow Rate 07/16/22 14:31 07/16/22 14:31 07/16/22 14:49 Temperature 97.3 F L Pulse Rate 167 H 154 H Respiratory Rate 22 20 Blood Pressure 98/52 L 120/59 L Pulse Oximetry 96 100 Oxygen Delivery Method Oxygen Flow Rate 0 07/16/22 14:54 07/16/22 14:54 07/16/22 14:56 Temperature Pulse Rate 167 H 93 H Respiratory Rate 19 13 Blood Pressure 120/59 L Pulse Oximetry 97 97 Oxygen Delivery Method Oxygen Flow Rate 07/16/22 14:56 07/16/22 15:00 07/16/22 15:00 Temperature Pulse Rate Respiratory Rate Blood Pressure 116/73 105/69 104/53 L Pulse Oximetry Oxygen Delivery Method Oxygen Flow Rate 07/16/22 15:00 07/16/22 15:30 07/16/22 15:30 Temperature Pulse Rate 88 85 Respiratory Rate 15 15 Blood Pressure 108/69 Pulse Oximetry 97 97 Oxygen Delivery Method Oxygen Flow Rate 07/16/22 15:30 07/16/22 16:00 07/16/22 16:09 Temperature Pulse Rate 168 H 158 H Respiratory Rate 24 24 Blood Pressure 130/58 L Pulse Oximetry 98 95 Oxygen Delivery Method Oxygen Flow Rate 07/16/22 16:09 07/16/22 16:30 07/16/22 17:59 Temperature Pulse Rate 162 H 174 H 170 H Respiratory Rate 18 16 Blood Pressure 121/58 L Pulse Oximetry 95 99 Oxygen Delivery Method Oxygen Flow Rate 07/16/22 16:56 07/16/22 16:56 07/16/22 16:57 Temperature Pulse Rate 152 H 162 H Respiratory Rate 20 18 Blood Pressure 106/54 L Pulse Oximetry 99 94 Oxygen Delivery Method Oxygen Flow Rate 07/16/22 16:57 07/16/22 17:00 07/16/22 17:01 Temperature Pulse Rate 161 H 154 H Respiratory Rate 18 20 Blood Pressure 99/53 L Pulse Oximetry 94 95 Oxygen Delivery Method Oxygen Flow Rate 07/16/22 17:01 07/16/22 17:16 07/16/22 17:16 Temperature Pulse Rate 156 H Respiratory Rate 23 Blood Pressure 111/58 L 126/60 Pulse Oximetry 99 Oxygen Delivery Method Oxygen Flow Rate 07/16/22 17:30 07/16/22 17:31 07/16/22 17:31 Temperature Pulse Rate 162 H 163 H Respiratory Rate 22 21 Blood Pressure 130/57 L Pulse Oximetry 95 94 Oxygen Delivery Method Oxygen Flow Rate 07/16/22 17:45 07/16/22 17:45 07/16/22 18:00 Temperature Pulse Rate 168 H 160 H Respiratory Rate 17 23 Blood Pressure 121/58 L Pulse Oximetry 97 Oxygen Delivery Method Oxygen Flow Rate 07/16/22 18:02 07/16/22 18:02 07/16/22 18:15 Temperature Pulse Rate 161 H 160 H Respiratory Rate 23 16 Blood Pressure 123/63 Pulse Oximetry 98 97 Oxygen Delivery Method Oxygen Flow Rate 07/16/22 18:15 07/16/22 18:30 07/16/22 18:30 Temperature Pulse Rate 174 H Respiratory Rate 18 Blood Pressure 126/56 L 119/55 L Pulse Oximetry 98 Oxygen Delivery Method Oxygen Flow Rate 07/16/22 18:45 07/16/22 18:45 07/16/22 19:00 Temperature Pulse Rate 174 H Respiratory Rate 22 Blood Pressure 133/71 136/63 Pulse Oximetry 97 Oxygen Delivery Method Oxygen Flow Rate 07/16/22 19:00 Temperature Pulse Rate 174 H Respiratory Rate 21 Blood Pressure Pulse Oximetry 98 Oxygen Delivery Method Oxygen Flow Rate Oxygen Delivery Method Room Air Oxygen Flow Rate 0 Narrative Exam Narrative: NAD Resp Other: nornal RR symmetric chest rise Cardio Other: HR in 180s on monitor Objective Labs 07/16/22 09:22 07/16/22 09:22 Labs: Laboratory Results - last 24 hr 07/16/22 07/16/22 07/16/22 09:22 09:22 09:22 WBC 5.9 RBC 4.63 Hgb 13.7 Hct 40.7 MCV 87.8 MCH 29.5 MCHC 33.6 RDW 13.5 Plt Count 270 Neut % (Auto) 53.8 Lymph % (Auto) 34.9 [place] % (Auto) 8.1 Eos % (Auto) 2.5 Baso % (Auto) 0.7 Neut # (Auto) 3200 Lymph # (Auto) 2100 [place] # (Auto) 500 Eos # (Auto) 100 Baso # (Auto) 0 Sodium 140 Potassium 4.1 Chloride 104 Carbon Dioxide 28 BUN 18 H Creatinine 0.97 Estimated GFR > 60 BUN/Creatinine Ratio 18.6 Glucose 110 H Calcium 9.0 Magnesium 2.2 Total Bilirubin 0.7 AST 27 ALT 35 H Alkaline Phosphatase 65 Total Creatine Kinase 84 CK-MB (CK-2) TNP CK-MB (CK-2) Rel Index TNP Troponin I < 0.012 Total Protein 7.6 Albumin 4.4 Globulin 3.2 Albumin/Globulin Ratio 1.4 Lipase 140 TSH 3.14 Nasal Screen MRSA (PCR) SARS-CoV-2 (PCR) 07/16/22 07/16/22 09:29 15:08 WBC RBC Hgb Hct MCV MCH MCHC RDW Plt Count Neut % (Auto) Lymph % (Auto) [place] % (Auto) Eos % (Auto) Baso % (Auto) Neut # (Auto) Lymph # (Auto) [place] # (Auto) Eos # (Auto) Baso # (Auto) Sodium Potassium Chloride Carbon Dioxide BUN Creatinine Estimated GFR BUN/Creatinine Ratio Glucose Calcium Magnesium Total Bilirubin AST ALT Alkaline Phosphatase Total Creatine Kinase CK-MB (CK-2) CK-MB (CK-2) Rel Index Troponin I Total Protein Albumin Globulin Albumin/Globulin Ratio Lipase TSH Nasal Screen MRSA (PCR) Not detected SARS-CoV-2 (PCR) Negative Assessment & Plan Assessment and plan (1) Atrial fibrillation with RVR: Status: Acute Plan TTE monitor HR will start amiodarone - her chadsvasc is 1, and theoretically should have a low risk of cva if she converts start eliquis trend bmp trend cb correct lytes adat HD stable, buyt map goal >65 I have tried to avoid amiodarone givne she may chemicaly cardiovert, but she has failed many rate controlling agnets including cardizem, verapamil, digoxin and bb total critical time = 35 min
[2022-07-16] MEDS: AMIODARONE 360 MG/200 ML PIGGYBACK 33.333 MG IV (19:59)
[2022-07-16] MEDS: APIXABAN 5 MG TABLET PO (21:11)
[2022-07-16] MEDS: ACETAMINOPHEN 325 MG TABLET 650 MG PO (23:40)
[2022-07-17] VITALS (59 sets, daily range): BP systolic 99–141; BP diastolic 57–89; PULSE 50–162; RESP 11–37; TEMP 35.9–36.4; O2SAT 73–100
[2022-07-17] MEDS: AMIODARONE 360 MG/200 ML PIGGYBACK 16.7 MG IV (01:51)
[2022-07-17 04:59] LABS: Alanine Aminotransferase 37 IU/L (<35); Albumin Globulin Ratio 1.3 (1.0-2.8); Alkaline Phosphatase 61 U/L (38-126); Aspartate Aminotransferase 32 IU/L (14-36); Bilirubin Total 0.3 mg/dL (0.2-1.3); Blood Urea Nitrogen 18 mg/dL (7-17); Calcium 8.6 mg/dL (8.4-10.2); Carbon Dioxide 26 mmol/L (22-32); Chloride 107 mmol/L (98-107); Estimated Glomerular Filt Rate > 60 mL/min (>60); Glucose 114 mg/dL (70-100); HEMOLYSIS < 15 (0-50); Magnesium 2.3 mg/dL (1.6-2.3); Phosphorous 4.2 mg/dL (2.5-4.5); Potassium 3.9 mmol/L (3.4-5.1); Sodium 141 mmol/L (137-145)
[2022-07-17] MEDS: METOPROLOL IR 25 MG TABLET PO (05:04)
--- NOTE | 2022-07-17 08:39 | PM.PN.1 ---
Subjective Subjective Date Patient Seen: 07/17/22 Time Patient Seen: 08:39 Interval history: AFib with RVR follow-up. Patient still feeling short of breath just even in bed. Tired just to get up and go to the bathroom. Heart rate still running 120 to 140s lying and 160s getting up to move around. She is having no chest pain. She otherwise feels well. No fevers no chills. So far she is been given digoxin verapamil Cardizem and metoprolol and not responded. Blood pressure hovering around 100 right now. Was started on amiodarone last night. No other significant changes. Appreciate tele parking attendant input. No other changes. Exam Vital Signs (past 8 hours): - 07/17/22 01:00 07/17/22 01:01 07/17/22 01:01 Temperature Pulse Rate 154 H 141 H Respiratory Rate 19 16 Blood Pressure 117/57 L Pulse Oximetry 97 98 Oxygen Delivery Method Oxygen Flow Rate 07/17/22 01:30 07/17/22 01:30 07/17/22 02:00 Temperature Pulse Rate 131 H Respiratory Rate 20 Blood Pressure 115/65 125/65 Pulse Oximetry 97 Oxygen Delivery Method Oxygen Flow Rate 07/17/22 02:00 07/17/22 02:30 07/17/22 02:31 Temperature Pulse Rate 118 H 119 H 120 H Respiratory Rate 14 11 L 16 Blood Pressure Pulse Oximetry 97 94 96 Oxygen Delivery Method Oxygen Flow Rate 07/17/22 02:31 07/17/22 03:00 07/17/22 03:00 Temperature Pulse Rate 119 H Respiratory Rate 14 Blood Pressure 111/64 113/64 Pulse Oximetry 97 Oxygen Delivery Method Oxygen Flow Rate 07/17/22 03:30 07/17/22 03:30 07/17/22 04:00 Temperature 97.6 F Pulse Rate 121 H 118 H Respiratory Rate 13 14 Blood Pressure 113/57 L Pulse Oximetry 97 99 Oxygen Delivery Method Oxygen Flow Rate 07/17/22 04:13 07/17/22 04:13 07/17/22 04:30 Temperature Pulse Rate 125 H 128 H Respiratory Rate 14 27 H Blood Pressure 127/67 Pulse Oximetry 99 97 Oxygen Delivery Method Oxygen Flow Rate 07/17/22 05:00 07/17/22 05:00 07/17/22 05:30 Temperature Pulse Rate 123 H 125 H Respiratory Rate 14 14 Blood Pressure 109/57 L Pulse Oximetry 98 97 Oxygen Delivery Method Oxygen Flow Rate 0 07/17/22 06:00 07/17/22 06:00 07/17/22 07:00 Temperature Pulse Rate 121 H Respiratory Rate 15 Blood Pressure 124/89 Pulse Oximetry 96 Oxygen Delivery Method Room Air Oxygen Flow Rate 07/17/22 07:00 07/17/22 07:00 07/17/22 08:00 Temperature Pulse Rate 122 H Respiratory Rate 11 L Blood Pressure 120/72 101/63 Pulse Oximetry 98 Oxygen Delivery Method Oxygen Flow Rate 07/17/22 08:00 Temperature Pulse Rate 122 H Respiratory Rate 15 Blood Pressure Pulse Oximetry 99 Oxygen Delivery Method Oxygen Flow Rate Oxygen Delivery Method Room Air Oxygen Flow Rate 0 Narrative Exam Narrative: Alert smiling female in no acute distress Lungs are clear heart is regular rate and rhythm Objective Labs 07/16/22 09:22 07/17/22 04:30 Labs: Laboratory Results - last 24 hr 07/16/22 07/16/22 07/16/22 09:22 09:22 09:22 WBC 5.9 RBC 4.63 Hgb 13.7 Hct 40.7 MCV 87.8 MCH 29.5 MCHC 33.6 RDW 13.5 Plt Count 270 Neut % (Auto) 53.8 Lymph % (Auto) 34.9 Elliott % (Auto) 8.1 Eos % (Auto) 2.5 Baso % (Auto) 0.7 Neut # (Auto) 3200 Lymph # (Auto) 2100 Elliott # (Auto) 500 Eos # (Auto) 100 Baso # (Auto) 0 Sodium 140 Potassium 4.1 Chloride 104 Carbon Dioxide 28 BUN 18 H Creatinine 0.97 Estimated GFR > 60 BUN/Creatinine Ratio 18.6 Glucose 110 H Calcium 9.0 Phosphorus Magnesium 2.2 Total Bilirubin 0.7 AST 27 ALT 35 H Alkaline Phosphatase 65 Total Creatine Kinase 84 CK-MB (CK-2) TNP CK-MB (CK-2) Rel Index TNP Troponin I < 0.012 Total Protein 7.6 Albumin 4.4 Globulin 3.2 Albumin/Globulin Ratio 1.4 Lipase 140 TSH 3.14 Nasal Screen MRSA (PCR) SARS-CoV-2 (PCR) 07/16/22 07/16/22 07/17/22 09:29 15:08 04:30 WBC RBC Hgb Hct MCV MCH MCHC RDW Plt Count Neut % (Auto) Lymph % (Auto) Elliott % (Auto) Eos % (Auto) Baso % (Auto) Neut # (Auto) Lymph # (Auto) Elliott # (Auto) Eos # (Auto) Baso # (Auto) Sodium 141 Potassium 3.9 Chloride 107 Carbon Dioxide 26 BUN 18 H Creatinine 0.90 Estimated GFR > 60 BUN/Creatinine Ratio 20.0 Glucose 114 H Calcium 8.6 Phosphorus 4.2 Magnesium 2.3 Total Bilirubin 0.3 AST 32 ALT 37 H Alkaline Phosphatase 61 Total Creatine Kinase CK-MB (CK-2) CK-MB (CK-2) Rel Index Troponin I Total Protein 7.0 Albumin 4.0 Globulin 3.0 Albumin/Globulin Ratio 1.3 Lipase TSH Nasal Screen MRSA (PCR) Not detected SARS-CoV-2 (PCR) Negative PFSH Medical History Acute carpal tunnel syndrome of right wrist Hypertension Lumbar back pain with radiculopathy affecting right lower extremity Surgical History No significant past surgical history Status post surgery (07/18/08) Social History household members: significant other Smoking Status: Never smoker Assessment & Plan Assessment & Plan narrative: AFib with RVR. Somewhat confusing rhythm because there appears to be intermittent sinus beats and then runs of what appears to be AFib. Patient is not responding to multiple medications. And overall seems to be stable. CT scan today to evaluate for PE although seems low risk although discussion with asset protection greeter they feel like person with normal echo normal heart on treadmill that pulmonary cause could be part of the issue. And will be set up. Her risk should be low. Otherwise it is unclear definitively this rate. And what next. She is currently on amiodarone. Blood pressure is around 100. And otherwise has no other changes. Will discuss with asset protection greeter hopefully we can get them to evaluate the rhythm and point us in the right direction otherwise. Have not made a lot of progress. Will follow-up later today. She understands. Questions answered. Concerning that we have been unable to establish any rate control. No evidence of electrolyte disturbance. Well low Abimael score at this point will continue Eliquis until full decision on treatment. Thyroid seems to be normal. Anxiety. Actually a little better today. Longstanding. Not on medicines. Will need to follow. I do not think this is something that is a big issue. She has been under a moderate amount of stress but otherwise seems to be stable. History of hypertension. Not an issue at this time. Code status full. GI prophylaxis not needed at this time. DVT prophylaxis on Eliquis. Disposition. At this point we need to have some semblance of rate control. Hopefully we can get asset protection greeter to evaluate. And point in the right direction. No other changes. Follow-up a.m.
[2022-07-17] MEDS: APIXABAN 5 MG TABLET PO ×2 (08:55→21:32)
--- NOTE | 2022-07-17 09:10 | PM.PN.EICU ---
Subjective Subjective IF CAMERA ACTIVATED, patient seen via real-time interactive audiovisual communication: Camera activated Date Patient Seen: 07/17/22 Consent obtained for tele-metallurgical laboratory assistant care: Yes Patient Location: ICU Provider location (State): [place] Other participants/roles: Bedside RN Interval history: Patient continues to be in AF with RvR, on amiodarone gtt and PO metprolol. BP WNL. While rates have come down to 120-130- at times she briefly up to 170- Better than consistenty in 180's she is still not rate controlled. She is awaiting TTE, Ct to r/o PE and cardiology evaulation. Her trop remains negative. Covid PCR negative. Current Medications Current Medications Medications: Home Medications cyclobenzaprine 10 mg tablet 10 mg PO TID PRN muscle spasm #15 tabs 04/18/19 [Rx Confirmed 07/03/21] naproxen 500 mg tablet,delayed release 500 mg PO Q12H PRN pain #20 tabs 04/18/19 [Rx Confirmed 07/03/21] hydrocodone 5 mg-acetaminophen 325 mg tablet 1 tab PO Q4-6H PRN pain #14 tabs 05/15/20 [Rx Confirmed 07/03/21] hydrochlorothiazide 25 mg tablet 25 mg PO DAILY #30 tabs 03/06/21 [Rx Confirmed 07/03/21] lisinopril 10 mg tablet 10 mg PO DAILY #30 tabs 03/06/21 [Rx Confirmed 07/03/21] Visit Medications (administered) Generic Name Dose Route Start Last Admin Trade Name Freq PRN Reason Stop Dose Admin Acetaminophen 650 mg 07/16/22 14:49 07/16/22 23:40 Acetaminophen 325 Mg Tablet PO 650 mg Q6H PRN Administration Fever/Mild Pain (1-3) Apixaban 5 mg 07/16/22 21:00 07/17/22 08:55 Apixaban 5 Mg Tablet PO 5 mg BID JOSE M Administration Amiodarone HCl/Dextrose 360 mg in 200 mls @ 16.7 mls/hr 07/17/22 01:00 07/17/22 01:51 Nexterone IV 07/17/22 13:00 16.7 mls/hr CONT JOSE M 16.7 mls/hr Administration Protocol Metoprolol Tartrate 25 mg 07/16/22 18:00 07/17/22 05:04 Metoprolol Ir 25 Mg Tablet PO 25 mg Q6HR JOSE M Administration Objective Labs 07/16/22 09:22 07/17/22 04:30 Labs: Laboratory Results - last 24 hr 07/16/22 07/16/22 07/16/22 09:22 09:22 09:22 WBC 5.9 RBC 4.63 Hgb 13.7 Hct 40.7 MCV 87.8 MCH 29.5 MCHC 33.6 RDW 13.5 Plt Count 270 Neut % (Auto) 53.8 Lymph % (Auto) 34.9 Vermilion % (Auto) 8.1 Eos % (Auto) 2.5 Baso % (Auto) 0.7 Neut # (Auto) 3200 Lymph # (Auto) 2100 [place] # (Auto) 500 Eos # (Auto) 100 Baso # (Auto) 0 Sodium 140 Potassium 4.1 Chloride 104 Carbon Dioxide 28 BUN 18 H Creatinine 0.97 Estimated GFR > 60 BUN/Creatinine Ratio 18.6 Glucose 110 H Calcium 9.0 Phosphorus Magnesium 2.2 Total Bilirubin 0.7 AST 27 ALT 35 H Alkaline Phosphatase 65 Total Creatine Kinase 84 CK-MB (CK-2) TNP CK-MB (CK-2) Rel Index TNP Troponin I < 0.012 Total Protein 7.6 Albumin 4.4 Globulin 3.2 Albumin/Globulin Ratio 1.4 Lipase 140 TSH 3.14 Nasal Screen MRSA (PCR) SARS-CoV-2 (PCR) 07/16/22 07/16/22 07/17/22 09:29 15:08 04:30 WBC RBC Hgb Hct MCV MCH MCHC RDW Plt Count Neut % (Auto) Lymph % (Auto) Verm[place] % (Auto) Eos % (Auto) Baso % (Auto) Neut # (Auto) Lymph # (Auto) [place] # (Auto) Eos # (Auto) Baso # (Auto) Sodium 141 Potassium 3.9 Chloride 107 Carbon Dioxide 26 BUN 18 H Creatinine 0.90 Estimated GFR > 60 BUN/Creatinine Ratio 20.0 Glucose 114 H Calcium 8.6 Phosphorus 4.2 Magnesium 2.3 Total Bilirubin 0.3 AST 32 ALT 37 H Alkaline Phosphatase 61 Total Creatine Kinase CK-MB (CK-2) CK-MB (CK-2) Rel Index Troponin I Total Protein 7.0 Albumin 4.0 Globulin 3.0 Albumin/Globulin Ratio 1.3 Lipase TSH Nasal Screen MRSA (PCR) Not detected SARS-CoV-2 (PCR) Negative Exam Vital Signs (past 8 hours): - 07/17/22 01:30 07/17/22 01:30 07/17/22 02:00 Temperature Pulse Rate 131 H Respiratory Rate 20 Blood Pressure 115/65 125/65 Pulse Oximetry 97 Oxygen Delivery Method Oxygen Flow Rate 07/17/22 02:00 07/17/22 02:30 07/17/22 02:31 Temperature Pulse Rate 118 H 119 H 120 H Respiratory Rate 14 11 L 16 Blood Pressure Pulse Oximetry 97 94 96 Oxygen Delivery Method Oxygen Flow Rate 07/17/22 02:31 07/17/22 03:00 07/17/22 03:00 Temperature Pulse Rate 119 H Respiratory Rate 14 Blood Pressure 111/64 113/64 Pulse Oximetry 97 Oxygen Delivery Method Oxygen Flow Rate 07/17/22 03:30 07/17/22 03:30 07/17/22 04:00 Temperature 97.6 F Pulse Rate 121 H 118 H Respiratory Rate 13 14 Blood Pressure 113/57 L Pulse Oximetry 97 99 Oxygen Delivery Method Oxygen Flow Rate 07/17/22 04:13 07/17/22 04:13 07/17/22 04:30 Temperature Pulse Rate 125 H 128 H Respiratory Rate 14 27 H Blood Pressure 127/67 Pulse Oximetry 99 97 Oxygen Delivery Method Oxygen Flow Rate 07/17/22 05:00 07/17/22 05:00 07/17/22 05:30 Temperature Pulse Rate 123 H 125 H Respiratory Rate 14 14 Blood Pressure 109/57 L Pulse Oximetry 98 97 Oxygen Delivery Method Oxygen Flow Rate 0 07/17/22 06:00 07/17/22 06:00 07/17/22 07:00 Temperature Pulse Rate 121 H Respiratory Rate 15 Blood Pressure 124/89 Pulse Oximetry 96 Oxygen Delivery Method Room Air Oxygen Flow Rate 07/17/22 07:00 07/17/22 07:00 07/17/22 08:00 Temperature Pulse Rate 122 H Respiratory Rate 11 L Blood Pressure 120/72 101/63 Pulse Oximetry 98 Oxygen Delivery Method Oxygen Flow Rate 07/17/22 08:00 Temperature Pulse Rate 122 H Respiratory Rate 15 Blood Pressure Pulse Oximetry 99 Oxygen Delivery Method Oxygen Flow Rate Oxygen Delivery Method Room Air Oxygen Flow Rate 0 Narrative Exam Narrative: Well appearing, on room air. No distress Eyes Other: Sclera normal Resp Other: Respiratory effort WNL while sitting in bed Cardio Other: HR on tele in 120-170- Atrial fibrillation Psych Other: alert and oriented. Assessment & Plan Assessment and plan (1) Atrial fibrillation with RVR: Status: Acute Plan: Patient is clearly not rate controlled on 0.5 mg/hr of amio and metoprolol 25 mg PO q 6 hours- Her BP is better this am and she has room to increase beta antoinette. WIll plan to increase metop dose to 37.5 q 6 hours and increase amio gtt back to 1 mg/hr for another 6 hours. She has stated that over the last week she has also had right sided headaches and some intermittent blurry vision. Denies any other acute numbness, weakness, dysarthria. Will get head ct, especially as she has been initiated on AC She states she has had palpitations like this in past but at most lasting a day, not a week like this time. Plan TTE today Head CT today Ct to r/o PE, but low risk for PE and has been started on eliquis Cardiology consult Continue amiodarone gtt for now at 1 mg/hr since rate still >110 and oral agents trialed yesterday ineffective and caused hypotension Continue metoprolol PO q 6 hours, if BP remains WNL can attempt to uptitrate metoprolol for better rate control Time Spent With Patient Time with patient: 30 to 49 minutes with 50% spent counseling/coordinating care
--- NOTE | 2022-07-17 10:07 | DI.CT.S_ITS ---
PROCEDURE: CT HEAD/BRAIN WO CON INDICATIONS: right sided FIGUEROA , intermittent vision changes. Afib TECHNIQUE: Noncontrast 4.5 mm thick angled axial sections acquired from the foramen magnum to the vertex, with coronal and sagittal reformats. For radiation dose reduction, the following was used: automated exposure control, adjustment of mA and/or kV according to patient size. COMPARISON: [facility], CT, CT ANGIO CHEST PE PROTOCOL, 07/17/2022, 10:10. [facility], CT, CT HEAD/BRAIN WO CON, 04/18/2019, 12:36. FINDINGS: Image quality: Excellent. CSF spaces: Basal cisterns are patent. No extra-axial fluid collections. Ventricles are normal in size and shape. Brain: No midline shift. No intracranial masses or hemorrhage. Vázquez-white matter interface is normal. Skull and face: Calvarium and visualized facial bones are intact, without suspicious lesions. Sinuses: Visualized sinuses and mastoids are clear. IMPRESSION: Unremarkable noncontrast head CT, without a patient's presenting history. If there is strong clinical suspicion for an acute stroke, please consider a brain MRI for further evaluation, as it is more sensitive (assuming that there is no contraindication to MRI). Dictated by: Vineet Parr M.D. on 07/17/2022 at 9:47 Approved by: Vineet Parr M.D. on 07/17/2022 at 9:48
--- NOTE | 2022-07-17 10:15 | DI.CT.S_ITS ---
PROCEDURE: CT ANGIO CHEST PE PROTOCOL INDICATIONS: shortness of breath TECHNIQUE: After the administration of intravenous contrast, 2 mm thick sections acquired from the pulmonary apices to the posterior costophrenic angles. 3-dimensional maximum intensity projection (MIP) coronal and sagittal reformats were then acquired through the thorax. For radiation dose reduction, the following was used: automated exposure control, adjustment of mA and/or kV according to patient size. COMPARISON: [facility], CT, PE STUDY (CTA CHEST), 05/31/2012, 21:24. [facility], CR, XR CHEST 1V, 07/16/2022, 9:30. [facility], CT, CT HEAD/BRAIN WO CON, 07/17/2022, 10:10. FINDINGS: Image quality: Excellent. Pulmonary arteries: Pulmonary arteries are normal in size, and demonstrate no intraluminal filling defects to suggest central pulmonary embolism. Lungs and pleura: No focal infiltrates are seen. Within the right lower lobe, there is again seen a soft tissue nodule measuring 5 mm, as on series 10, image 188. This is stable compared to 2013. No pleural effusions or pneumothorax. Central and peripheral airways are patent. Mediastinum: Heart size is mildly enlarged, without pericardial effusion. No mediastinal or hilar adenopathy. Thoracic aorta is normal in caliber and enhancement. Esophagus is normal in caliber, without hiatal hernia. Bones and chest wall: No suspicious bony lesions. Ribs and thoracic spine appear intact throughout. Age-appropriate bony degenerative changes are seen. Thyroid gland demonstrates no significant abnormality. No axillary or supraclavicular adenopathy. Abdomen: Cholecystectomy clips are seen. Reflux of contrast can be seen into the inferior vena cava hepatic veins. The visualized portions of the upper abdominal structures are otherwise unremarkable for imaging technique. IMPRESSION: Negative for pulmonary embolism. There is mild cardiomegaly and there is reflux contrast into the inferior vena cava and into hepatic veins. This constellation of findings is commonly observed in patients with CHF. Additional findings: Stable right lower lobe pulmonary nodule, 5 mm, benign Cholecystectomy Dictated by: Vineet Parr M.D. on 07/17/2022 at 9:48 Approved by: Vineet Parr M.D. on 07/17/2022 at 9:51
[2022-07-17] MEDS: ALPRAZolam 0.5 MG TABLET PO (10:41)
[2022-07-17] MEDS: AMIODARONE 360 MG/200 ML PIGGYBACK 33.33 MG IV ×3 (10:49→22:16)
--- NOTE | 2022-07-17 10:49 | CM.DANOTE ---
DCP: Case received, EMR reviewed and met with patient. Introduced self and role. Was able to meet with patient. DCP assessment completed with information currently available. Patient is a 57 year old female who admitted yesterday afternoon to the care of the hospitalist team. PCP: Dr. Angel. Payer: [employer]/Medicaid. Patient came to the hospital via private vehicle secondary to 7 days of having feelings that her heart is beating fast, and fluttering. Patient had also complained of feeling lightheaded. Patient had recently had a stress test, and echocardiogram last year, which were remarkable. Patient also complaining of anxiety, due to stress of her job. Patient was diagnosed with afib with RVR. ICU has been working on rate control. Patient had been placed on diltiazem drip and beta-antoinette in the emergency room. She was then started on Amiodarone last night. Provider is working on getting taco maker to see patient, and is also being evaluated for blood clots. Met with patient in her room. She is alert and oriented, anxious, her heart rate is still not stable, hopes to see taco maker today. Confirmed that she resides in [place] with spouse, [place]. She is independent. She was working at [employer], but no longer, due to her heart issues. P: DCP to continue to follow for any resources needed. Patient is not yet medically stable for discharge at this time, due to cardiac rate control, but most likely will go home when she is deemed medically stable. May also need to follow up with cardiology on an outpatient basis. Caroline Chiu RN/Regional Merchandising Manager Discharge Planning/Care Management Discharge Assessment Start: 07/17/22 10:28 Freq: Status: Active Protocol: Document 07/17/22 10:28 (Rec: 07/17/22 10:35 [id number]) Discharge Planning Assessment Assigned Waiter/Waitress Third Class Caroline Chiu RN Case Manager Advance Directives? No Advance Directives on File No History Provided By Patient,Medical Record Prior Living Arrangements House Household Members significant other Type of transporation used prior to Drives own vehicle admit Independent with ADL's Yes Is patient alert and oriented? Yes Caregiver for Another No Barriers to Discharge No Discharge Plan Home Transportation Arrangement Spouse Referrals Initiated None needed Whiteboard Updated in Patient Room with Yes name and ext. # of Waiter/Waitress Third Class Review Status In Process Next Review Type Continued Stay Review
[2022-07-17] MEDS: METOPROLOL IR 25 MG TABLET 37.5 MG PO (12:07)
--- NOTE | 2022-07-17 15:01 | PM.CN ---
History of Present Illness Consult details Date Patient Seen: 07/17/22 Time Patient Seen: 12:30 Chief complaint: heart pausing/fluttering/lightheaded/weak T-7 Reason for consult: Rapid atrial fibrillation Requesting provider: Paco Angel Narrative: The patient is a 57-year-old female with a longstanding history of palpitations but no other cardiac history except for hypertension. An event monitor in March 2021 showed only occasional PACs and PVCs without any complex arrhythmia. She saw Dr. Dharmesh crawford in August 2021 for her palpitations and also reported a 1 year history of exertional dyspnea. An echocardiogram obtained on 01/23/2022 showed an EF of 55 to 60% with probable normal filling pressures, normal right ventricle, and mild tricuspid regurgitation but no other abnormality. PAP was 27 mmHg with a CVP of 3 mmHg. A stress echocardiogram at that time showed good exercise capacity with an BEATRIZ of -20% without any chest discomfort and there was no evidence for any ischemia. It was felt that her palpitations most likely were a manifestation of her anxiety and no specific therapy was recommended. She presented to the [place] ED on 07/16/2022 with a 1-week history of more persistent palpitations associated with lightheadedness. She reports a gradual worsening of her palpitations over the past year, but quite sporadic and intermittent but over the previous week being more persistent. She was found to have paroxysmal atrial fibrillation with frequent interspersed sinus beats with heart rates in the 1 40-1 60 range. Her labs were unremarkable with a potassium of 4.1 and a magnesium of 2.2 with a normal troponin. TSH was normal at 3.14. She was started on IV diltiazem drip but without much effect and was started on oral metoprolol with only mild improvement. She was given a single dose of digoxin as well as verapamil without significant effect and therefore was started on IV amiodarone at 1 mg/h subsequently reduced to 0.5 mg/h and Eliquis. Metoprolol was started at 25 mg every 6 hours with heart rates now in the 120-140 range. Her metoprolol has recently been increased to 37.5 mg every 6 hours and IV amiodarone increased back to 1.0 mg/h. She can identify no obvious trigger or any associated symptoms over the past week except for her lightheadedness. She had stopped her HCTZ around 3 weeks ago because her blood pressures had been adequate but restarted the day prior to presentation. She remains active and denies any chest discomfort or dyspnea although does report increased stress and anxiety from a part-time job that stopped around 1 month ago. She has not had any nausea or diarrhea except for on the day of presentation denies any fevers or chills. She admits to relatively poor sleep but only modest snoring and her partner has not noted any apnea. She denies any tobacco use and currently has been drinking 1 to 3 glasses of wine 1-2 times a week without any recent change and denies any recreational drug use. She has been working part-time at [employer] up until a month ago. She lives with her partner. Her family history is notable for alcoholism and early on her father side but there is no strong family history for heart disease. Meds Home Medications and Allergies Home Medications Medication Instructions Recorded Confirmed Type cyclobenzaprine 10 mg tablet 10 mg PO TID PRN muscle spasm #15 04/18/19 07/17/22 Rx tabs naproxen 500 mg tablet,delayed 500 mg PO Q12H PRN pain #20 tabs 04/18/19 07/17/22 Rx release hydrocodone 5 mg-acetaminophen 325 1 tab PO Q4-6H PRN pain #14 tabs 05/15/20 07/17/22 Rx mg tablet hydrochlorothiazide 25 mg tablet 25 mg PO DAILY #30 tabs 03/06/21 07/17/22 Rx lisinopril 10 mg tablet 10 mg PO DAILY #30 tabs 03/06/21 07/17/22 Rx Allergies Allergy/AdvReac Type Severity Reaction Status Date / Time morphine [MORPHINE] Allergy Mild ITCH Verified 07/03/21 17:44 oxycodone [From PERCOCET] Allergy Unknown Verified 07/03/21 17:44 Exam Vital Signs (past 8 hours): - 07/17/22 08:00 07/17/22 08:00 07/17/22 08:30 Temperature Pulse Rate 122 H 132 H Respiratory Rate 15 24 Blood Pressure 101/63 Pulse Oximetry 99 98 Oxygen Delivery Method 07/17/22 09:00 07/17/22 09:01 07/17/22 09:01 Temperature Pulse Rate 134 H 153 H Respiratory Rate 17 14 Blood Pressure 141/75 H Pulse Oximetry 95 97 Oxygen Delivery Method 07/17/22 09:30 07/17/22 10:00 07/17/22 10:01 Temperature Pulse Rate 145 H 147 H 149 H Respiratory Rate 18 17 23 Blood Pressure Pulse Oximetry 98 95 Oxygen Delivery Method 07/17/22 10:01 07/17/22 10:34 07/17/22 11:16 Temperature 97.3 F L Pulse Rate Respiratory Rate Blood Pressure 140/80 Pulse Oximetry Oxygen Delivery Method Room Air 07/17/22 10:30 07/17/22 11:00 07/17/22 11:00 Temperature Pulse Rate 57 L 143 H Respiratory Rate 18 Blood Pressure 130/66 Pulse Oximetry 99 97 Oxygen Delivery Method 07/17/22 11:30 07/17/22 12:00 07/17/22 12:00 Temperature Pulse Rate 155 H 152 H Respiratory Rate 21 19 Blood Pressure 113/65 Pulse Oximetry 98 97 Oxygen Delivery Method 07/17/22 12:32 07/17/22 12:30 07/17/22 13:00 Temperature 97.5 F L Pulse Rate 145 H Respiratory Rate 19 Blood Pressure 123/67 Pulse Oximetry 98 Oxygen Delivery Method 07/17/22 13:00 07/17/22 13:30 07/17/22 14:00 Temperature Pulse Rate 162 H 145 H Respiratory Rate 20 22 Blood Pressure 113/68 Pulse Oximetry 97 98 Oxygen Delivery Method 07/17/22 14:00 07/17/22 14:32 Temperature Pulse Rate 139 H 156 H Respiratory Rate 19 Blood Pressure Pulse Oximetry 97 88 L Oxygen Delivery Method Oxygen Delivery Method Room Air Oxygen Flow Rate 0 Narrative Exam Narrative: General: Pleasant middle-aged female who appears slightly scattered but no distress. Skin: Warm and dry HEENT: EOMI, no arcus Lungs: Clear bilaterally without any rales or wheeze CV: Irregular rhythm, at times rapid with a normal S1 and S2 without any appreciable murmurs or gallops. JVP appears to be 6 to 7 cm. Dorsalis pedis and posterior tibial pulses are all 2+. Abdomen: Soft, nondistended nontender without any palpable masses or organomegaly. Extremities: Warm without any edema. Neuro: Grossly intact. Psych: Pleasant and cooperative, slightly anxious Objective ECG Impression: Her twelve-lead ECG shows salvos of atrial fibrillation interspersed between fairly clear sinus beats. There is some nonspecific ST segment abnormality but no concerning ST segment deviations. Labs 07/16/22 09:22 07/17/22 04:30 Labs: Laboratory Results - last 24 hr 07/16/22 07/17/22 15:08 04:30 Sodium 141 Potassium 3.9 Chloride 107 Carbon Dioxide 26 BUN 18 H Creatinine 0.90 Estimated GFR > 60 BUN/Creatinine Ratio 20.0 Glucose 114 H Calcium 8.6 Phosphorus 4.2 Magnesium 2.3 Total Bilirubin 0.3 AST 32 ALT 37 H Alkaline Phosphatase 61 Total Protein 7.0 Albumin 4.0 Globulin 3.0 Albumin/Globulin Ratio 1.3 Nasal Screen MRSA (PCR) Not detected [facility] Medical History Acute carpal tunnel syndrome of right wrist Hypertension Lumbar back pain with radiculopathy affecting right lower extremity Surgical History No significant past surgical history Status post surgery (07/18/08) Social History household members: significant other Tobacco & Substance Use Smoking Status: Never smoker Assessment & Plan Assessment and plan (1) Atrial fibrillation with RVR: Status: Acute (2) Tachycardia: Status: Acute Plan 1. Advance metoprolol to 50 mg every 6 hours, and then by an additional 25 mg every 6 hours as her blood pressure allows. 2. Start oral amiodarone 400 mg bid in addition to IV amiodarone and stop IV amiodarone after 36-48 hour of total duration or when adequate heart rate control is acheived 3. Check echocardiogram and diurese if CVP is elevated, but keep potassium > 4.0 and magnesium >2.0. 4. Continue Eliquis and discharge when heart rate is adequately controlled, on amiodarone 400 mg daily, metoprolol with dosing consolidated to bid regimen, and follow up with Dr. Rainey with 3-4 weeks. Assessment & Plan narrative: 1. Rapid paroxysmal atrial fibrillation interspersed with sinus rhythm. There is no clear identifiable trigger to her atrial fibrillation and it is somewhat unusual given its repetitive nature interspersed with sinus rhythm. I agree with obtaining an echocardiogram to look for any new underlying structural disease and to assess her filling pressures which appear possibly elevated on physical exam. If her CVP is elevated on her echocardiogram, diuresis may be of some benefit to reduce atrial stretch and reduce her ectopy. Otherwise, I would continue to hold the course with 24 to 48 hours of IV amiodarone with escalating doses of metoprolol as tolerated, and would advance to 50 mg every 6 hours, and then by an additional 25 mg every 6 hours as her blood pressure allows. In addition, I would start oral amiodarone 400 mg bid in addition to IV amiodarone. Hopefully, over time, this will produce adequate heart rate control and her IV amiodarone can be discontinued and she can be discharged on amiodarone 400 mg daily and metoprolol consolidated to a bid regimen. If her rhythm remains unstable, referral to Dr. Canela for atrial fibrillation ablation can be considered. I would strive to ensure that potassium stays >4.0 and magnesium >2.0. I have also counseled her that she should refrain from alcohol completely. I would continue with Stacie indefinitely at this point and she can follow-up with Dr. Rainey following discharge as an outpatient. Please let me know if you have any further questions. COVID-19 Result date/Date tested (Pos, Neg/Pending): 07/17/22 Time Spent With Patient Time with patient: 70 minutes or more, with 50% spent counseling/coordinating
[2022-07-17 15:08] LABS: NT-proBNP (BNP-Adult 18+) 2260 pg/mL (<125)
[2022-07-17] MEDS: AMIODARONE 200 MG TABLET 400 MG PO (16:19)
[2022-07-17] MEDS: METOPROLOL IR 50 MG TABLET PO (18:28)
[2022-07-17] MEDS: FUROSEMIDE 20 MG/2 ML VIAL IV (18:28)
--- NOTE | 2022-07-17 20:44 | PM.ICURNDS ---
- Date Patient Seen: 07/17/22 Time Patient Seen: 20:44 :: This patient was seen via real time interactive two-way audiovisual telecommunication. Note: patient seen afebebrile, HD stable no new complaints discussed results of ct head/cta chest, echo all questions answered continue amio transition to po rate control as tolerated AC per primary team
[2022-07-17] MEDS: ACETAMINOPHEN 325 MG TABLET 650 MG PO (22:14)
[2022-07-17] MEDS: ONDANSETRON 4 MG ODT PO (22:19)
[2022-07-18] VITALS (26 sets, daily range): BP systolic 92–149; BP diastolic 53–95; PULSE 47–80; RESP 10–53; TEMP 35.9–36.6; O2SAT 91–100
[2022-07-18] MEDS: AMIODARONE 360 MG/200 ML PIGGYBACK 33.33 MG IV (04:06)
[2022-07-18] MEDS: ONDANSETRON 4 MG ODT PO (04:08)
[2022-07-18 04:34] LABS: Add Manual Diff / Slide Review NO; Basophils Absolute Auto 0 /uL (0-100); Basophils Percent Auto 0.6 % (0-2); Eosinophils Absolute Auto 100 /uL (0-450); Hematocrit 38.4 % (36-46); Lymphocytes Absolute Auto 2000 /uL (1100-4500); Lymphocytes Percent Auto 33.2 % (25-40); Mean Corpuscular HGB Conc 33.9 % (30-36); Mean Corpuscular Hemoglobin 29.8 PG (26-34); Mean Corpuscular Volume 87.9 fL (80-100); Monocytes Absolute Auto 400 /uL (0-900); Monocytes Percent Auto 6.7 % (3-14); Neutrophils Absolute Auto 3500 /uL (1500-7000); Neutrophils Percent Auto 58.5 % (50-75); Platelet Count 216 X10^3/uL (150-400); Red Blood Cell Count 4.37 X10^6/uL (4.0-5.2); Red Cell Distribution Width 13.6 % (11.6-14.8)
[2022-07-18 04:42] LABS: Alanine Aminotransferase 67 IU/L (<35); Albumin 4.3 g/dL (3.5-5.0); Albumin Globulin Ratio 1.4 (1.0-2.8); Alkaline Phosphatase 58 U/L (38-126); Aspartate Aminotransferase 51 IU/L (14-36); BUN Creatinine Ratio 17.5 (6-22); Bilirubin Total 0.3 mg/dL (0.2-1.3); Blood Urea Nitrogen 17 mg/dL (7-17); Calcium 8.8 mg/dL (8.4-10.2); Carbon Dioxide 30 mmol/L (22-32); Chloride 104 mmol/L (98-107); Estimated Glomerular Filt Rate > 60 mL/min (>60); Glucose 104 mg/dL (70-100); HEMOLYSIS < 15 (0-50); Magnesium 2.1 mg/dL (1.6-2.3); Potassium 3.7 mmol/L (3.4-5.1); Sodium 141 mmol/L (137-145); Total Protein 7.3 g/dL (6.3-8.2)
[2022-07-18] MEDS: AMIODARONE 200 MG TABLET 400 MG PO ×2 (09:35→17:59)
[2022-07-18] MEDS: APIXABAN 5 MG TABLET PO ×2 (09:36→20:48)
--- NOTE | 2022-07-18 10:21 | PM.PN.1 ---
Subjective Subjective Date Patient Seen: 07/18/22 Time Patient Seen: 10:22 Interval history: chief complaint: abnormal heart rhythm Appreciate input from cardiology - she converted to sinus rhythm last night on amio drip which was discontinued this morning continuing oral amio and metoprolol will try to consolidate doses as noted in Dr. Trevino's note Discussed with patient I would like to see her stay converted for 24 hours before going home on stable dosages she concurs Exam Vital Signs (past 8 hours): - 07/18/22 02:30 07/18/22 03:00 07/18/22 03:00 Temperature Pulse Rate 52 L 59 L Respiratory Rate 23 30 H Blood Pressure 99/57 L Pulse Oximetry 99 98 Oxygen Delivery Method 07/18/22 03:30 07/18/22 04:00 07/18/22 04:01 Temperature Pulse Rate 50 L 47 L 48 L Respiratory Rate 14 12 17 Blood Pressure Pulse Oximetry 100 99 98 Oxygen Delivery Method 07/18/22 04:01 07/18/22 04:30 07/18/22 05:00 Temperature Pulse Rate 50 L Respiratory Rate 16 Blood Pressure 113/78 128/81 Pulse Oximetry 97 Oxygen Delivery Method 07/18/22 05:00 07/18/22 05:30 07/18/22 06:00 Temperature Pulse Rate 50 L 57 L Respiratory Rate 11 L 13 Blood Pressure 120/58 L Pulse Oximetry 96 92 Oxygen Delivery Method 07/18/22 06:00 07/18/22 06:30 07/18/22 07:00 Temperature Pulse Rate 55 L 50 L 54 L Respiratory Rate 17 10 L 53 H Blood Pressure Pulse Oximetry 98 99 91 Oxygen Delivery Method 07/18/22 07:02 07/18/22 07:02 07/18/22 07:30 Temperature Pulse Rate 50 L 54 L Respiratory Rate 34 H 16 Blood Pressure 138/83 Pulse Oximetry 99 98 Oxygen Delivery Method 07/18/22 08:00 07/18/22 08:00 07/18/22 08:30 Temperature Pulse Rate 52 L 54 L Respiratory Rate 13 33 H Blood Pressure 129/82 Pulse Oximetry 95 97 Oxygen Delivery Method 07/18/22 09:00 07/18/22 07:00 Temperature 96.8 F L Pulse Rate Respiratory Rate Blood Pressure Pulse Oximetry Oxygen Delivery Method Room Air Oxygen Delivery Method Room Air Oxygen Flow Rate 0 Narrative Exam Narrative: alert doing coloring exercise in bed Cardio Other: regular rate and rhythm, S1/S2 no pedal edema GI Other: soft nontender nondistended Neuro General: patient alert, patient awake, patient oriented x3 and moves all extremities Objective Labs 07/18/22 04:15 07/18/22 04:15 Labs: Laboratory Results - last 24 hr 07/17/22 07/18/22 07/18/22 14:36 04:15 04:15 WBC 6.0 RBC 4.37 Hgb 13.0 Hct 38.4 MCV 87.9 MCH 29.8 MCHC 33.9 RDW 13.6 Plt Count 216 Neut % (Auto) 58.5 Lymph % (Auto) 33.2 [place] % (Auto) 6.7 Eos % (Auto) 1.0 L Baso % (Auto) 0.6 Neut # (Auto) 3500 Lymph # (Auto) 2000 [place] # (Auto) 400 Eos # (Auto) 100 Baso # (Auto) 0 Sodium 141 Potassium 3.7 Chloride 104 Carbon Dioxide 30 BUN 17 Creatinine 0.97 Estimated GFR > 60 BUN/Creatinine Ratio 17.5 Glucose 104 H Calcium 8.8 Magnesium 2.1 Total Bilirubin 0.3 AST 51 H ALT 67 H Alkaline Phosphatase 58 NT-Pro-B Natriuret Pep 2260 H Total Protein 7.3 Albumin 4.3 Globulin 3.0 Albumin/Globulin Ratio 1.4 PFSH Medical History Acute carpal tunnel syndrome of right wrist Hypertension Lumbar back pain with radiculopathy affecting right lower extremity Surgical History No significant past surgical history Status post surgery (07/18/08) Social History household members: significant other Smoking Status: Never smoker Assessment & Plan Assessment & Plan narrative: #AFib with RVR Appreciate input from Dr. Trevino very much, successful conversion, will dc amio drip continue oral meds consolidate BB continue monitor #Anxiety? improved, feeling better #History of hypertension not a problem currently monitor Code status full.? GI prophylaxis not needed at this time.? DVT prophylaxis on Eliquis. Dispo: probably dc tomorrow if stable for 24 hours off amio drip
--- NOTE | 2022-07-18 11:36 | CM.DPC ---
DCP Cont: Notes indicate that patient converted to sinus rhythm on amio drip, which was discontinued this morning. Patient is continuing on oral amio and metoprolol, as recommended by foundry worker general. Dr. Landeros came by the care managemnt office and indicated that patient may be able to be discharged tomorrow. P: DCP to continue to follow. Plan is home when deemed medically stable. Caroline Chiu RN/[employer]
[2022-07-18] MEDS: METOPROLOL IR 50 MG TABLET PO (17:59)
[2022-07-18] MEDS: SODIUM CHLORIDE 0.9% FLUSH 10 ML IV (20:48)
[2022-07-18] MEDS: ACETAMINOPHEN 325 MG TABLET 650 MG PO (20:49)
[2022-07-19] VITALS: BP 115/57; PULSE 59; RESP 17; TEMP 36.4; O2SAT 99
[2022-07-19 04:00] VITALS: BP 127/60; PULSE 56; RESP 17; TEMP 36.3; O2SAT 98
[2022-07-19] MEDS: ONDANSETRON 4 MG ODT PO (04:30)
[2022-07-19 05:38] LABS: Add Manual Diff / Slide Review NO; Basophils Absolute Auto 0 /uL (0-100); Basophils Percent Auto 0.5 % (0-2); Eosinophils Absolute Auto 100 /uL (0-450); Eosinophils Percent Auto 2.1 % (2-4); Hemoglobin 12.4 g/dL (12.0-16.0); Lymphocytes Absolute Auto 1500 /uL (1100-4500); Mean Corpuscular HGB Conc 33.6 % (30-36); Mean Corpuscular Hemoglobin 29.4 PG (26-34); Mean Corpuscular Volume 87.5 fL (80-100); Monocytes Absolute Auto 400 /uL (0-900); Monocytes Percent Auto 7.3 % (3-14); Neutrophils Absolute Auto 3700 /uL (1500-7000); Neutrophils Percent Auto 64.1 % (50-75); Platelet Count 198 X10^3/uL (150-400); Red Blood Cell Count 4.23 X10^6/uL (4.0-5.2); Red Cell Distribution Width 13.7 % (11.6-14.8); White Blood Cell Count 5.7 X10^3/uL (4.5-11.0)
[2022-07-19 06:00] LABS: Alanine Aminotransferase 98 IU/L (<35); Albumin 4.2 g/dL (3.5-5.0); Albumin Globulin Ratio 1.4 (1.0-2.8); Alkaline Phosphatase 60 U/L (38-126); Aspartate Aminotransferase 63 IU/L (14-36); BUN Creatinine Ratio 17.2 (6-22); Bilirubin Total 0.5 mg/dL (0.2-1.3); Blood Urea Nitrogen 16 mg/dL (7-17); Calcium 8.6 mg/dL (8.4-10.2); Carbon Dioxide 30 mmol/L (22-32); Chloride 105 mmol/L (98-107); Estimated Glomerular Filt Rate > 60 mL/min (>60); Globulin 3.1 g/dL (1.7-4.1); Glucose 105 mg/dL (70-100); HEMOLYSIS < 15 (0-50); Potassium 3.7 mmol/L (3.4-5.1); Sodium 140 mmol/L (137-145); Total Protein 7.3 g/dL (6.3-8.2)
[2022-07-19 08:00] VITALS: BP 127/60; PULSE 57; RESP 19; TEMP 36.1; O2SAT 99
[2022-07-19] MEDS: AMIODARONE 200 MG TABLET 400 MG PO (08:00)
[2022-07-19] MEDS: APIXABAN 5 MG TABLET PO (08:01)
[2022-07-19] MEDS: METOPROLOL IR 50 MG TABLET 100 MG PO (08:03)
[2022-07-19] MEDS: MAGNESIUM HYDROXIDE 30 ML UDC PO (08:12)
[2022-07-19] MEDS: SODIUM CHLORIDE 0.9% FLUSH 10 ML IV (08:20)
--- NOTE | 2022-07-19 08:35 | PM.DS.1 ---
History of Present Illness History of Present Illness Date Patient Seen: 07/19/22 Time Patient Seen: 08:36 Chief complaint: heart pausing/fluttering/lightheaded/weak T-7 Narrative: Chief complaint irregular heartbeat Pt had boring day yesterdy has remained sinus rhythm doing ok on orals now for 24 hours feeling fine eating walking feels normal ready to go home and f/u with cardio Discharge Providers Provider Date of admission: 07/16/22 13:29 Discharge Date: 07/19/22 Primary care physician: Paco Angel MD Consults: 07/16/22 15:36 Consult to Tele-mushroom spawn maker Routine Comment: Consulting Provider: Kathy [employer] Reason for consultation: [employer] 07/16/22 16:04 Consult to Tele-mushroom spawn maker Routine Comment: Consulting Provider: Kathy [employer] Reason for consultation: [employer] Discharge provider: Graham Landeros MD Summary Hospital Course Discharge Diagnosis: #AFib with RVR successfull conversion to sinus rhythm continue oral amio, metoprolol and eliquis #Anxiety? improved, feeling better #History of hypertension Hospital Course: Ms Khalil initially presented to ED with lightheadedness and palpitations found to have unfortunately extremely interesting cardiac rhythm alternating between sinus rhythm and afib with RVR approximately every 2-3 seconds. Initial attempts to convert this rhythm were unsuccessful with various agents however with assistance of cardiology Dr. Trevino she was able to convert and persist in sinus rhythm on a combination of amiodarone and metoprolol. She did well and persisted in sinus rhythm felt ok to go home and f/u with cardiology adn pcp as outpt. Status at Discharge Cognitive/behavioral status at discharge: at baseline, oriented Functional status at discharge: independent ambulation Overall status at discharge: patient is back to baseline Exam Vital Signs (past 8 hours): - 07/19/22 04:00 Temperature 97.3 F L Pulse Rate 56 L Respiratory Rate 17 Blood Pressure 127/60 Pulse Oximetry 98 Oxygen Delivery Method Room Air Oxygen Flow Rate 0 Narrative Exam Narrative: alert sitting on settee Const General: cooperative, healthy appearing, comfortable and well developed HENCT Head: normocephalic and atraumatic Resp Auscultation: clear to auscultation bilaterally Cardio Other: regular rate and rhythm, S1/S2 no pedal edema GI Inspection: normal to inspection Auscultation: normal bowel sounds Neuro General: patient alert, patient awake, patient oriented x3, gait normal and no focal motor deficits Objective Labs 07/19/22 04:25 07/19/22 04:25 Labs: Laboratory Results - last 24 hr 07/19/22 07/19/22 04:25 04:25 WBC 5.7 RBC 4.23 Hgb 12.4 Hct 37.0 MCV 87.5 MCH 29.4 MCHC 33.6 RDW 13.7 Plt Count 198 Neut % (Auto) 64.1 Lymph % (Auto) 26.0 [place] % (Auto) 7.3 Eos % (Auto) 2.1 Baso % (Auto) 0.5 Neut # (Auto) 3700 Lymph # (Auto) 1500 [place] # (Auto) 400 Eos # (Auto) 100 Baso # (Auto) 0 Sodium 140 Potassium 3.7 Chloride 105 Carbon Dioxide 30 BUN 16 Creatinine 0.93 Estimated GFR > 60 BUN/Creatinine Ratio 17.2 Glucose 105 H Calcium 8.6 Total Bilirubin 0.5 AST 63 H ALT 98 H Alkaline Phosphatase 60 Total Protein 7.3 Albumin 4.2 Globulin 3.1 Albumin/Globulin Ratio 1.4 [facility] Medical History Acute carpal tunnel syndrome of right wrist Hypertension Lumbar back pain with radiculopathy affecting right lower extremity Surgical History No significant past surgical history Status post surgery (07/18/08) Social History household members: significant other Smoking Status: Never smoker Discharge Assessment & Plan Assessment and Plan Assessment: #AFib with RVR successful conversion to sinus rhythm continue oral amio, metoprolol and eliquis per cardiology recs #Anxiety? improved, feeling better #History of hypertension not a problem currently monitor Code status full.? PCP: Jeanne GI prophylaxis not needed at this time.? DVT prophylaxis on Eliquis. time spent: more than 30 min Discharge Plan Discharge Plan Patient Disposition: Home Discharge orders & Medications Prescriptions: New amiodarone 200 mg Tablet 400 mg PO BIDWM 90 Days Qty: 360 0RF Eliquis 5 mg Tablet 5 mg PO BID 90 Days Qty: 180 0RF metoprolol tartrate 50 mg Tablet 100 mg PO BID 90 Days Qty: 180 0RF Continued hydrocodone-acetaminophen 5-325 mg tablet 1 tab PO Q4-6H PRN (Reason: pain) Qty: 14 0RF lisinopril 10 mg tablet 10 mg PO DAILY Qty: 30 0RF hydrochlorothiazide 25 mg tablet 25 mg PO DAILY Qty: 30 0RF naproxen 500 mg tablet,delayed release (DR/EC) 500 mg PO Q12H PRN (Reason: pain) Qty: 20 0RF cyclobenzaprine 10 mg tablet 10 mg PO TID PRN (Reason: muscle spasm) Qty: 15 0RF Follow up/Referrals: Paco Angel MD [Primary Care Provider] - Paco Trevino MD [Physician] - Diet/Activity/Treatments Diet: Diet as Tolerated Diet comment: no alcohol Visit Report/Discharge Packet Stand Alone Forms: Patient Portal/API, Stroke Signs & Symptoms Discharge Data Primary Care Provider: Paco Angel Discharges patient from system. Discharge Date/Time: 07/19/22 10:00
--- NOTE | 2022-07-19 10:28 | CM.DPC ---
DCP Discharge Home Per MD, pt is medically stable to d/c home today and no identified barriers to discharge and no needs. Per Rn, pt was given d/c instructions and no concerns and pt left first thing this morning. Plan: Patient discharged home right away this morning via POV and no further needs at this time. SAURABH Colon
== END 2022-07-19 10:00 | disposition home or self-care (01) | DRG 201 ==
LOC: ED 13:29 → AC 13:30 → ICU 14:11
PROVIDERS: Anesthesiology Critical Care Medicine; Family Medicine; Admitting Provider Family Medicine; Emergency Provider Emergency Medicine; PCP Family Medicine; Referring Provider Emergency Medicine; Visit Provider Family Medicine
DX: I48.0 Paroxysmal atrial fibrillation (principal); R00.0 Tachycardia, unspecified; R51.9 Headache, unspecified; H53.9 Unspecified visual disturbance; I10 Essential (primary) hypertension; Z20.822 Contact with and (suspected) exposure to COVID-19
CPT/HCPCS: 36415; 70450; 71045; 71275; 80053; 81003; 82550; 83690; 83735; 83880; 84100; 84443; 84484; 85025; 87635; 87797; 93005; 93306; 96365; 96366; 96376; 99284; 99291; C9803; J0282; J1160; J1940

== ENCOUNTER 2022-08-15 12:34 | Emergency (ER) | payer OTHER, MEDICAID, SELFPAY ==
[2022-07-16 14:42] VITALS: BMI 35.9
[2022-08-15 12:37] VITALS: BP 134/80; PULSE 65; O2SAT 99
[2022-08-15 12:40] VITALS: BP 134/80; PULSE 68; RESP 18; TEMP 36.7; O2SAT 99; BMI 35.3
--- NOTE | 2022-08-15 12:41 | DI.CT.S_ITS ---
PROCEDURE: CT ANGIO HEAD AND NECK INDICATIONS: loss vision 08/10/22 and head pain TECHNIQUE: Pre-contrast 4.5 mm thick sections acquired from the foramen magnum to the vertex. After the administration of intravenous contrast, 1 mm thick sections acquired from the aortic arch through the [place]. Post-contrast 4.5 mm thick sections then re-acquired from the foramen magnum to the vertex. 3-dimensional jjebpqs-dzhutpwtm-fctyqdustp (MIP) and/or volume rendering reformats were acquired of the central intracranial vasculature and neck separately. For radiation dose reduction, the following was used: automated exposure control, adjustment of mA and/or kV according to patient size. COMPARISON: [facility], CT, CT HEAD/BRAIN WO CON, 04/18/2019, 12:36. [facility], CT, CT HEAD/BRAIN WO CON, 07/17/2022, 10:10. FINDINGS: Image quality: Mild streak artifact can be seen through the skull base. Is BRAIN: CSF spaces: Ventricles are normal in size and shape. Basal cisterns are patent. No extra-axial fluid collections. Brain: No midline shift. No intracranial bleeds or masses. Vázquez-white matter interface appears intact. Skull and face: Calvarium and facial bones appear intact, without suspicious lesions. Orbits appear normal. Sinuses: Sinuses and mastoids are clear. HEAD CT ANGIOGRAPHY: Anterior circulation: Intracranial internal carotid arteries are normal in size and flow. The flow within the paired anterior cerebral arteries is normal and symmetric. The flow within the middle cerebral arteries is normal and symmetric. The anterior communicating artery is seen. No aneurysms are seen. Posterior circulation: Note is made of bilateral type origins of the posterior cerebral arteries, with an associated diminutive basilar artery. The flow within the posterior cerebral arteries is normal and symmetric. The distal vertebral arteries are overall small in size, yet otherwise unremarkable. No aneurysms are seen. NECK CT ANGIOGRAPHY: Carotid system: The great vessels demonstrate a conventional anatomy as they arise from the aortic arch. The origins of the common carotid arteries appear patent. The common carotid arteries demonstrate normal caliber and courses. The bifurcation regions are both widely patent. The internal carotid arteries demonstrate normal calibers and courses. Posterior circulation: The origins of the vertebral arteries both appear widely patent. The more superior extracranial portions of both vertebral arteries also demonstrate normal courses and calibers. They join to form a normal appearing basilar artery. Soft tissues: Visualized neck soft tissues demonstrate no suspicious abnormalities. Bones: No suspicious bony lesions. Visualized cervical spine appears normally aligned. Age-appropriate bony degenerative changes are seen. IMPRESSION: No significant intracranial arterial abnormality is seen. Within the arteries of the neck, no hemodynamically significant stenosis can be seen. Normal intraoperative examination. Any quantitative measurements of stenosis were performed using NASCET criteria. Dictated by: Vineet Parr M.D. on 08/15/2022 at 13:09 Approved by: Vineet Parr M.D. on 08/15/2022 at 13:12
--- NOTE | 2022-08-15 12:41 | DI.RAD.S_ITS ---
PROCEDURE: XR CHEST 1V INDICATIONS: Possible stroke TECHNIQUE: One view of the chest was acquired. COMPARISON: [facility], CR, XR CHEST 1V, 07/16/2022, 9:30. FINDINGS: Surgical changes and devices: None. Lungs and pleura: Lungs are clear. No pleural effusions or pneumothorax. Mediastinum: Mediastinal contours appear normal. Heart size is normal. Bones and chest wall: No suspicious bony lesions. Overlying soft tissues appear unremarkable. IMPRESSION: No acute pulmonary process. Dictated by: Kandis Perez M.D. on 08/15/2022 at 13:13 Approved by: Kandis Perez M.D. on 08/15/2022 at 13:13
[2022-08-15 12:46] VITALS: BP 140/72; PULSE 55; RESP 18; O2SAT 99
[2022-08-15 13:00] VITALS: BP 125/72; PULSE 55; RESP 17; O2SAT 97
[2022-08-15 13:02] LABS: INR 1.2 (0.9-1.3); Prothrombin Time 14.2 SECONDS (10.1-12.7)
[2022-08-15 13:04] LABS: Add Manual Diff / Slide Review NO; Basophils Absolute Auto 0 /uL (0-100); Basophils Percent Auto 0.9 % (0-2); Eosinophils Absolute Auto 100 /uL (0-450); Eosinophils Percent Auto 3.4 % (2-4); Hematocrit 40.4 % (36-46); Hemoglobin 13.8 g/dL (12.0-16.0); Lymphocytes Absolute Auto 1300 /uL (1100-4500); Mean Corpuscular Hemoglobin 29.7 PG (26-34); Mean Corpuscular Volume 87.3 fL (80-100); Monocytes Absolute Auto 400 /uL (0-900); Monocytes Percent Auto 8.6 % (3-14); Neutrophils Absolute Auto 2300 /uL (1500-7000); Neutrophils Percent Auto 55.1 % (50-75); Platelet Count 226 X10^3/uL (150-400); Red Blood Cell Count 4.63 X10^6/uL (4.0-5.2); Red Cell Distribution Width 13.3 % (11.6-14.8); White Blood Cell Count 4.2 X10^3/uL (4.5-11.0)
[2022-08-15 13:05] LABS: PTT Partial Thromboplastin Tim 38 SECONDS (26-36)
[2022-08-15 13:10] LABS: Alanine Aminotransferase 32 IU/L (<35); Albumin 4.5 g/dL (3.5-5.0); Albumin Globulin Ratio 1.4 (1.0-2.8); Alkaline Phosphatase 59 U/L (38-126); Aspartate Aminotransferase 27 IU/L (14-36); BUN Creatinine Ratio 23.2 (6-22); Bilirubin Total 0.5 mg/dL (0.2-1.3); Blood Urea Nitrogen 23 mg/dL (7-17); Calcium 8.7 mg/dL (8.4-10.2); Carbon Dioxide 30 mmol/L (22-32); Chloride 102 mmol/L (98-107); Creatine Kinase 100 U/L (30-135); Estimated Glomerular Filt Rate > 60 mL/min (>60); Globulin 3.3 g/dL (1.7-4.1); Glucose 106 mg/dL (70-100); HEMOLYSIS < 15 (0-50); Potassium 3.9 mmol/L (3.4-5.1); Sodium 138 mmol/L (137-145); Total Protein 7.8 g/dL (6.3-8.2)
[2022-08-15 13:21] LABS: Troponin I < 0.012 ng/mL (0.01-0.034)
--- NOTE | 2022-08-15 14:09 | ED_ITS ---
HPI - Neuro Symptoms/Deficit General Chief Complaint: Neuro Symptoms/Deficit Stated Complaint: Loss of vision Time Seen by Provider: 08/15/22 13:15 Source: patient Mode of arrival: Ambulatory Limitations: no limitations History of Present Illness HPI Narrative: 57-year-old female with history of atrial fibrillation anticoagulant with Eliquis, metoprolol, amiodarone, lisinopril and HCTZ, patient also take cycloben zaprine intermittently for chronic neck and back pain. Patient presents with complaint of right eye blurriness on 08/10/2022. Patient states she was getting an [employer] watch she was talking to the life insurance sales agent when she noted that the pain person was blurry but only from her right eye. She covered her left eye and the patient was blurry she covered her right I can see them normally. She states this lasted a short period of time and resolved. She states on 08/13/2022 she had episode where the vision went out in both her eyes and was sort of dark. She states she felt like she was going to pass out because it was dark but did not. 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 She has noted she sometimes gets right-sided headache and pains. She states no acute vision changes since then. She denies any dysarthria or aphasia, no facial droop. She states she is able to ambulate normally. She has chronic paresthesias from cervical and lower back issues but noted the right side of her body felt more numb today. She chronically has iss ues in her lower extremities with pain and burning and numbness. And she has issues in both upper extremities as well. Patient states no chest pain, no shortness of breath, no nausea no vomiting no other GI or urinary symptoms. She states her medications have been slowly decreased she is now on metoprolol 12.5 mg twice daily. She is on amiodarone once daily and plan to be tapered off in 2 weeks. She continues to take lisinopril and HCTZ and her Eliquis daily. She has done all of her medication changes with Dr. Almazan her mechanical system technician. She states prior cholecystectomy. Allergic to morphine and oxycodone. No tobacco, occasional alcohol none recently, no illicit. Dr. Angel is her primary care physician. Dr. Barlow is her mechanical system technician. On Anticoagulants: Yes (Eliquis for A fib) Related Data Previous Rx's Medication Instructions Recorded cyclobenzaprine 10 mg tablet 10 mg PO TID PRN muscle spasm #15 04/18/19 tabs naproxen 500 mg tablet,delayed 500 mg PO Q12H PRN pain #20 tabs 04/18/19 release hydrocodone 5 mg-acetaminophen 325 1 tab PO Q4-6H PRN pain #14 tabs 05/15/ mg tablet hydrochlorothiazide 25 mg tablet 25 mg PO DAILY #30 tabs 03/06/21 lisinopril 10 mg tablet 10 mg PO DAILY #30 tabs 03/06/21 amiodarone 200 mg tablet 400 mg PO BIDWM 90 days #360 tabs 07/19/22 apixaban 5 mg tablet (Eliquis) 5 mg PO BID 90 days #180 tabs 07/19/22 metoprolol tartrate 50 mg tablet 100 mg PO BID 90 days #180 tabs 07/19/22 Allergies Allergy/AdvReac Type Severity Reaction Status Date / Time morphine [MORPHINE] Allergy Mild ITCH Verified 07/03/21 17:44 oxycodone [From PERCOCET] Allergy Unknown Verified 07/03/21 17:44 Review of Systems Review of Systems ROS Unobtainable: All systems reviewed & are unremarkable except as noted in HPI and below Hematologic/Lymphatic On Anticoagulants: Yes (Eliquis for A fib) Patient History Medical History Acute carpal tunnel syndrome of right wrist Hypertension Lumbar back pain with radiculopathy affecting right lower extremity Surgical History No significant past surgical history Status post surgery (07/18/08) Social History household members: significant other Smoking Status: Never smoker Smoking Status: Never smoker alcohol intake frequency: a few times a month Substance Use Type: does not use Exam Narrative Exam Narrative: GEN: well nourished, well appearing female, alert and oriented x 3, patient appears to be in mild distress. HEENT: Atraumatic, pupils are equal round reactive to light, extraocular movements are intact, nares are clear. HEART: Regular rate and rhythm without murmur, clicks, rubs. Pulses are equal in upper and lower extremities LUNGS:Lungs clear to auscultation, no wheezes, rales, crackles, chest moves symmetrically ABD:bowel sounds normal, soft, non-tender, no guarding, rebound, rigidity, no m asses noted, no hepatosplenomegaly :No CVA tenderness MSCL: Non-tender, no muscle atrophy, muscles strength 5/5 upper and lower extremities, full range of motion, normal gait NEURO:CN 2-12 intact, sensation normal, finger nose finger test normal, heel mcpherson test normal. SKIN: No rash, no erythema or other skin changes. Initial Vital Signs Initial Vital Signs: Vital Signs Pulse Rate 65 08/15/22 12:37 Blood Pressure 134/80 08/15/22 12:37 Pulse Oximetry 99 08/15/22 12:37 Scores NIH Stroke Scale Level of Conciousness: Alert, keenly responsive Ask month/age: Answers both questions correctly. Open/close eyes, close hand: Performs both tasks correctly Best gaze horizontal: Normal Visual ozuna: No visual loss Facial palsy: Normal symetrical movement Left arm drift: No drift for full 10 sec Right arm drift: No drift for full 10 sec Left leg drift: No drift for full 5 sec Right leg drift: No drift for full 5 sec Limb ataxia: Absent Sensory on face/arms/legs: Normal, no sensory loss Best language: No aphasia, normal Dysarthria: Normal Extinction or inattention: No abnormality Total NIH Stroke scale score: 0 Course Orders Ordered: ED Orders 08/15/22 12:41 CT angio head and neck Stat XR chest 1V Stat 08/15/22 12:45 Complete Blood Count AUTO DIFF Stat Comprehensive Metabolic Panel Stat Magnesium Stat PTT Partial Thromboplastin [place] Stat Prothrombin Time INR Stat Troponin & CK Cardiac Panel Stat 08/15/22 12:49 EKG-12 Lead Stat 08/15/22 14:38 MR head/brain wo con Stat Discontinued Medications Ondansetron HCl (Ondansetron 4 Mg/2 Ml Inj) 4 mg IV NOW PRN PRN Reason: Nausea And Vomiting Vital Signs Vital signs: Vital Signs - 8 hr 08/15/22 12:40 08/15/22 12:37 08/15/22 12:37 Temperature 98.1 F Pulse Rate 68 65 Respiratory Rate 18 Blood Pressure 134/80 134/80 Pulse Oximetry 99 99 Oxygen Delivery Method Room Air 08/15/22 12:46 08/15/22 12:46 08/15/22 13:00 Temperature Pulse Rate 55 L Respiratory Rate 18 Blood Pressure 140/72 125/72 Pulse Oximetry 99 Oxygen Delivery Method 08/15/22 13:00 08/15/22 15:55 Temperature Pulse Rate 55 L 53 L Respiratory Rate 17 18 Blood Pressure 125/72 Pulse Oximetry 97 100 Oxygen Delivery Method Room Air MDM - Neuro Symptoms/Deficit Lab Data 08/15/22 12:45 08/15/22 12:45 Labs: Lab Results 08/15/22 08/15/22 08/15/22 Range/Units 12:45 12:45 12:45 WBC 4.2 L (4.5-11.0) X10^3/uL RBC 4.63 (4.0-5.2) X10^6/uL Hgb 13.8 (12.0-16.0) g/dL Hct 40.4 (36-46) % MCV 87.3 (80-100) fL MCH 29.7 (26-34) PG MCHC 34.0 (30-36) % RDW 13.3 (11.6-14.8) % Plt Count 226 (150-400) X10^3/uL Neut % (Auto) 55.1 (50-75) % Lymph % (Auto) 32.0 (25-40) % [place] % (Auto) 8.6 (3-14) % Eos % (Auto) 3.4 (2-4) % Baso % (Auto) 0.9 (0-2) % Neut # (Auto) 2300 (8651-6361) /uL Lymph # (Auto) 1300 (0747-8454) /uL [place] # (Auto) 400 (0-900) /uL Eos # (Auto) 100 (0-450) /uL Baso # (Auto) 0 (0-100) /uL PT 14.2 H (10.1-12.7) SECONDS INR 1.2 (0.9-1.3) APTT 38 H (26-36) SECONDS Sodium 138 (137-145) mmol/L Potassium 3.9 (3.4-5.1) mmol/L Chloride 102 (98-107) mmol/L Carbon Dioxide 30 (22-32) mmol/L BUN 23 H (7-17) mg/dL Creatinine 0.99 (0.52-1.04) mg/dL Estimated GFR > 60 (>60) mL/min BUN/Creatinine Ratio 23.2 H (6-22) Glucose 106 H (70-100) mg/dL Calcium 8.7 (8.4-10.2) mg/dL Magnesium 2.0 (1.6-2.3) mg/dL Total Bilirubin 0.5 (0.2-1.3) mg/dL AST 27 (14-36) IU/L ALT 32 (<35) IU/L Alkaline Phosphatase 59 (38-126) U/L Total Creatine Kinase 100 (30-135) U/L CK-MB (CK-2) TNP CK-MB (CK-2) Rel Index TNP Troponin I < 0.012 (0.01-0.034) ng/mL Total Protein 7.8 (6.3-8.2) g/dL Albumin 4.5 (3.5-5.0) g/dL Globulin 3.3 (1.7-4.1) g/dL Albumin/Globulin Ratio 1.4 (1.0-2.8) Point of Care Testing Glucose POC 106 Urine Dip Bedside Urine Glucose Negative Bedside Urine Bilirubin - Negative Bedside Urine Ketone - Negative Urine Specific [place] 1.010 Bedside Urine Occult Blood - Negative Bedside Urine pH 6.5 Bedside Urine Protein - Negative Bedside Urine Urobilinogen - Negative Bedside Urine Nitrite - Negative Bedside Urine Leukocytes - Negative Esterase Imaging Data Chest x-ray: Radiologist's Impression: Close Head/Neck CTA 08/15/22 Chest X-Ray (Signed) Kandis Perez - 08/15/22 Chest CTA (Signed) Vineet Parr - 07/17/[address] (Signed) Vineet Parr - 07/17/22 Echocardiogram Ultrasound (Signed) Paco Trevino - 07/16/22 Telemetry Strips 07/16/22 Telemetry Strips 07/16/22 Chest X-Ray (Signed) Bhavik Up - 07/16/22 EKG Rpt. 07/16/22 Chest X-Ray (Signed) Maximino Serna - 03/05/21 Ankle X-Ray (Signed) Mark Bhatia - 03/15/21 Lumbar Spine X-Ray (Signed) Vineet Parr - 04/18/[address] (Signed) Vineet Parr - 04/18/19 Chest X-Ray (Signed) Vineet Parr - 04/18/[address] (Signed) Vineet Parr - 04/18/19 Lumbar Spine MRI (Signed) Eyad Cortesbay - 02/04/19 Cervical Spine X-Ray (Signed) Chandrakant Mota - 10/07/18 Abdomen/Pelvis CT (Signed) BhatiaMark - 04/20/18 Foot X-Ray (Signed) Solo Cevallos - 10/09/17 Telemetry Strips 07/18/17 Launch?Image [address] [address] XRay Report Signed Patient: Akua Khalil MR#: [id number] : 1965 Acct:[id number] Age/Sex: 57 / F Date of Service: 08/15/22 Loc: ED Accession Number: [id number] ?? Procedure: XR chest 1V Ordering Provider: Aileen Peres D.O. PROCEDURE:? XR CHEST 1V ? INDICATIONS:? Possible stroke ? TECHNIQUE:? One view of the chest was acquired.? ? COMPARISON:? [facility], TIMOTHY, XR CHEST 1V, 07/16/2022, 9:30. ? FINDINGS:? ? Surgical changes and devices:? None.? ? Lungs and pleura:? Lungs are clear.? No pleural effusions or pneumothorax.? ? Mediastinum:? Mediastinal contours appear normal.? Heart size is normal.? ? Bones and chest wall:? No suspicious bony lesions.? Overlying soft tissues appear unremarkable.? ? IMPRESSION:? No acute pulmonary process. ? ? Dictated by: Kandis Perez M.D. on 08/15/2022 at 13:13 ? ? Approved by: Kandis Perez M.D. on 08/15/2022 at 13:13?? CTA - brain/neck: Radiologist's Impression: [address] [address] [address] Scan Report Signed Patient: Akua Khalil MR#: [id number] : 1965 Acct:[id number] Age/Sex: 57 / F Date of Service: 08/15/22 Loc: ED Accession Number: [id number] ?? Procedure: CT angio head and neck Ordering Provider: Aileen Peres D.O. PROCEDURE:? CT ANGIO HEAD AND NECK ? INDICATIONS:? loss vision 08/10/22 and head pain ? TECHNIQUE:? Pre-contrast 4.5 mm thick sections acquired from the foramen magnum to the vertex.? After the administration of intravenous contrast, 1 mm thick sections acquired from the aortic arch through the [place] of [place].? Post-contrast 4.5 mm thick sections then re- acquired from the foramen magnum to the vertex.? 3-dimensional maxim as-crkbqyxid-ltkmywmvbv (MIP) and/or volume rendering reformats were acquired of the central intracranial vasculature and neck separately. For radiation dose reduction, the following was used:? automated exposure control, adjustment of mA and/or kV according to patient size.? ? COMPARISON:? [facility], CT, CT HEAD/BRAIN WO CON, 04/18/2019, 12:36.? [facility], CT, CT HEAD/BRAIN WO CON, 07/17/2022, 10:10. ? FINDINGS:? Image quality:? Mild streak artifact can be seen through the skull base.? Is ? BRAIN:? CSF spaces:? Ventricles are normal in size and shape.? Basal cisterns are patent.? No extra-axial fluid collections.? ? Brain:? No midline shift.? No intracranial bleeds or masses.? Vázquez-white matter interface appears intact.? ? Skull and face:? Calvarium and facial bones appear intact, without suspicious lesions.? Orbits appear normal.? ? Sinuses:? Sinuses and mastoids are clear.? ? HEAD CT ANGIOGRAPHY:? Anterior circulation:? Intracranial internal carotid arteries are normal in size and flow.? The flow within the paired anterior cerebral arteries is normal and symmetric.? The flow within the middle cerebral arteries is normal and symmetric.? The anterior communicating artery is seen.? No aneurysms are seen.? ? Posterior circulation:? Note is made of bilateral type origins of the posterior cerebral arteries, with an associated diminutive basilar artery.? The flow wi thin the posterior cerebral arteries is normal and symmetric.? The distal vertebral arteries are overall small in size, yet otherwise unremarkable.? No aneurysms are seen.? ? NECK CT ANGIOGRAPHY:? Carotid system:? The great vessels demonstrate a conventional anatomy as they arise from the aortic arch.? The origins of the common carotid arteries appear patent.? The common carotid arteries demonstrate normal caliber and courses.? The bifurcation regions are both widely patent.? The internal carotid arteries demonstrate normal calibers and courses.? ? Posterior circulation:? The origins of the vertebral arteries both appear widely patent.? The more superior extracranial portions of both vertebral arteries also demonstrate normal courses and calibers.? They join to form a normal appearing basilar artery.? ? Soft tissues:? Visualized neck soft tissues demonstrate no suspicious abnormalities.? ? Bones:? No suspicious bony lesions.? Visualized cervical spine appears normally aligned.? Age-appropriate bony degenerative changes are seen.? ? ? IMPRESSION:? No significant intracranial arterial abnormality is seen.? ? Within the arteries of the neck, no hemodynamically significant stenosis can be seen. ? ? Normal intraoperative examination. ? ? Any quantitative measurements of stenosis were performed using NASCET criteria.? ? ? Dictated by: Vineet Parr M.D. on 08/15/2022 at 13:09 ? ? Approved by: Vineet Parr M.D. on 08/15/2022 at 13:12?? MRI brain: Radiologist's Impression: [place] [address] Magnetic Resonance Report Signed Patient: Akua Khalil MR#: [id number] : 1965 Acct:[id number] Age/Sex: 57 / F Date of Service: 08/15/22 Loc: ED Accession Number: [id number] ?? Procedure: MR head/brain wo con Ordering Provider: Aileen Peres D.O. PROCEDURE:? MR HEAD/BRAIN WO CON ? INDICATIONS:? intermittent vision change, right eye, later both eyes ? TECHNIQUE:? Noncontrast axial T1 spin echo, axial T2 fast spin echo, sagittal and axial FLAIR, coronal T2 fast spin echo, axial gradient echo, axial diffusion and ADC through the brain.? ? COMPARISON:? [facility], CT, CT HEAD/BRAIN WO CON, 07/17/2022, 10:10.? [facility], CT, CT ANGIO HEAD AND NECK, 08/15/2022, 13:34. ? FINDINGS:? Image quality:? Diagnostic, with note made of motion artifact.? ? CSF Spaces:? Basal cisterns are patent.? No extra-axial fluid collections.? Ventricles are normal in size and shape.? ? Brain:? No intracranial masses or hemorrhage.? Vázquez/white matter interface is normal.? Brainstem appears normal.? Diffusion-weighted images demonstrate no acute ischemic insult.? No chronic ischemic insults.? Normal intravascular flow voids are present.? ? Skull and face:? Calvarium has normal marrow signal.? Orbits appear normal.? ? Sinuses:? Small mucous retention cysts can be seen involving the inferior maxillary sinuses.? Sinuses and mastoids are otherwise relatively clear.? ? IMPRESSION:? No findings of acute or subacute infarction can be seen. ? Unremarkable intracranial study. ? ? Dictated by: Vineet Parr M.D. on 08/15/2022 at 14:16 ? ? Approved by: Vineet Parr M.D. on 08/15/2022 at 14:19?? ECG Data Attestation: I personally reviewed and interpreted this ECG as follows: Prior ECG tracings: not available for review Interpretation: Sinus bradycardia rate of 54 PA 156 QRS of 90 QTC 474. Nonspecific change. Patient has prior from 07/16/2022 at that time was in what appears to be either SVT or AFib with RVR, 03/05/2021 T-waves are PA flatter today. MDM Narrative Medical decision making narrative: This is a 57-year-old female anticoagulated on Eliquis for atrial fibrillation who presents with 2 episodes vision change 1 localized to the right eye on the 10 of August and both eyes were everything was dark for short period of time on the . Patient does have chronic paresthesias and notes that her right side in general seems worse today. Her NIH exam is 0 she does not appreciate changes to sensation on examination. Labs including CBC C, CMP, LFTs, troponin and coags are negative. Chest x-ray and CT angio head and neck do not show acute changes patient has known atrial fibrillation she appears to be rate controlled heart rates been 50s on EKGs. Patient and I discussed self taking MR of brain, this is negative. Would have her follow-up for further evaluation with Ophthalmology for recheck. Stroke Core Measures Exclusion Criteria TPA in CVA: Symptom Onset >3 or 4.5 Hours Discharge Plan Departure Patient Disposition: Home Clinical Impression: Changes in vision Activity Restrictions/Additional Instructions: Please follow-up with ophthalmology for further evaluation of your vision. Your workup today including CT angio of the head and neck and MRI brain does not show any changes or signs of acute or prior stroke. Continue your home medications as prescribed. Please return for new or worsening symptoms, severe headaches, passing out, loss of vision, severe eye pain, persistent vomiting, new chest pain or shortness of breath, fast irregular heartbeat or other new or concerning changes. Prescriptions: No Action hydrocodone-acetaminophen 5-325 mg tablet 1 tab PO Q4-6H PRN (Reason: pain) Qty: 14 0RF lisinopril 10 mg tablet 10 mg PO DAILY Qty: 30 0RF hydrochlorothiazide 25 mg tablet 25 mg PO DAILY Qty: 30 0RF amiodarone 200 mg Tablet 400 mg PO BIDWM 90 Days Qty: 360 0RF Eliquis 5 mg Tablet 5 mg PO BID 90 Days Qty: 180 0RF metoprolol tartrate 50 mg Tablet 100 mg PO BID 90 Days Qty: 180 0RF naproxen 500 mg tablet,delayed release (DR/EC) 500 mg PO Q12H PRN (Reason: pain) Qty: 20 0RF cyclobenzaprine 10 mg tablet 10 mg PO TID PRN (Reason: muscle spasm) Qty: 15 0RF Referrals: Andrzej Ferguson MD [Physician] - Paco Angel MD [Primary Care Provider] - Stand Alone Forms: Patient Portal/API
--- NOTE | 2022-08-15 14:38 | DI.MRI.S_ITS ---
PROCEDURE: MR HEAD/BRAIN WO CON INDICATIONS: intermittent vision change, right eye, later both eyes TECHNIQUE: Noncontrast axial T1 spin echo, axial T2 fast spin echo, sagittal and axial FLAIR, coronal T2 fast spin echo, axial gradient echo, axial diffusion and ADC through the brain. COMPARISON: [facility], CT, CT HEAD/BRAIN WO CON, 07/17/2022, 10:10. [facility], CT, CT ANGIO HEAD AND NECK, 08/15/2022, 13:34. FINDINGS: Image quality: Diagnostic, with note made of motion artifact. CSF Spaces: Basal cisterns are patent. No extra-axial fluid collections. Ventricles are normal in size and shape. Brain: No intracranial masses or hemorrhage. Vázquez/white matter interface is normal. Brainstem appears normal. Diffusion-weighted images demonstrate no acute ischemic insult. No chronic ischemic insults. Normal intravascular flow voids are present. Skull and face: Calvarium has normal marrow signal. Orbits appear normal. Sinuses: Small mucous retention cysts can be seen involving the inferior maxillary sinuses. Sinuses and mastoids are otherwise relatively clear. IMPRESSION: No findings of acute or subacute infarction can be seen. Unremarkable intracranial study. Dictated by: Vineet Parr M.D. on 08/15/2022 at 14:16 Approved by: Vineet Parr M.D. on 08/15/2022 at 14:19
[2022-08-15 15:55] VITALS: BP 125/72; PULSE 53; RESP 18; O2SAT 100
== END 2022-08-15 15:55 | disposition home or self-care (01) ==
PROVIDERS: Emergency Provider Emergency Medicine; PCP Family Medicine
DX: H53.9 Unspecified visual disturbance (principal); R51.9 Headache, unspecified; I48.91 Unspecified atrial fibrillation; Z79.01 Long term (current) use of anticoagulants
CPT/HCPCS: 36415; 70496; 70498; 70551; 71045; 80053; 81003; 82550; 82962; 83735; 84484; 85025; 85610; 85730; 93005; 99284

== ENCOUNTER 2022-08-28 02:41 | Emergency (ER) | payer OTHER, MEDICAID, SELFPAY ==
[2022-07-16 14:42] VITALS: BMI 35.9
--- NOTE | 2022-08-28 02:43 | ED_ITS ---
HPI - General Adult General Chief complaint: Extremity Injury, Upper Stated complaint: jammed rt finger Time Seen by Provider: 08/28/22 02:42 History of Present Illness HPI narrative: 57-year-old female on Eliquis for atrial fibrillation presents for evaluation of a painful swollen right index finger. She states that she was using a slipper to swat a spider and she misjudged the distance and subsequently jammed her finger. She initially had some pain but did not think much of it until she went to sleep, she awoke from sleep and noticed that the swelling had worsened and there was notable bruising. She states that she was concerned because she will be without a car for the day and she knew that she is at increased risk for badness after injury because of her blood thinner. She is increased pain with range of motion and improvement with rest. She denies any numbness, ti ngling or weakness Review of Systems Review of Systems Narrative: GENERAL: Denies chills, fatigue, malaise, fever, sweats. HEENT: Denies sinus pain, ear pain, sore throat, difficulty swallowing, dizziness. RESPIRATORY: Denies dyspnea, cough, wheezing, hemoptysis, sputum. CARDIOVASCULAR: Denies chest pain, palpitations, orthopnea, edema, GASTROINTESTINAL: Denies nausea, vomiting, abdominal pain, diarrhea, constipation, melena. : Denies dysuria, frequency, incontinence, hematuria, urinary retention. MUSCULOSKELETAL: See HPI SKIN: Denies rash, skin lesions, or other NEUROLOGIC: Denies weakness, headache, numbness, change in speech, confusion, seizures, incoordination. PSYCHIATRIC: No concerning psychosocial issues. 12 point review of systems is negative except for those stated above Patient History Social History Smoking Status: Never smoker Exam Narrative Exam Narrative: GEN: AOx3 and in mild distress EYES: Pupils are equal, round, and reactive to light and accommodation. Extraoccular muscles are intact bilaterally. There is no subconjunctival hemorrhage or exudate. CHEST: Lungs are clear to auscultation bilaterally and free of wheezes, rales, or rhonchi. Heart rate is regular rhythm, there are no murmurs, clicks, rubs, or gallops. There is no chest wall tenderness. ABD: Abdomen is soft and nontender. There is no guarding or rebound. Bowel sounds are normal in all 4 quadrants. There is no mass or organomegaly. EXT: Full but painful range of motion of right index finger with moderate ecchymosis but no specific bony tenderness. This is closed, isolated and neurovascularly intact. There is minimal swelling over the 2nd metacarpophalangeal joint SKIN: Warm, pink, and dry. No erythema or rash Initial Vital Signs Initial Vital Signs: Vital Signs Temperature 97.0 F L 08/28/22 02:47 Pulse Rate 76 08/28/22 02:47 Respiratory Rate 15 08/28/22 02:47 Blood Pressure 148/70 H 08/28/22 02:47 Pulse Oximetry 97 08/28/22 02:47 Oxygen Delivery Method Room Air 08/28/22 02:47 Procedures Orthopedic Splinting/Casting Injury #1: Side: right Upper Extremity Injury Location: finger Upper Extremity Immobilizer: aluminum form splint Post splinting neuro exam: intact Post splinting vascular exam: intact Placed by: Nursing Course Orders Ordered: ED Orders 08/28/22 02:50 XR finger RT min 2V Stat Vital Signs Vital signs: Vital Signs - 8 hr 08/28/22 02:47 Temperature 97.0 F L Pulse Rate 76 Respiratory Rate 15 Blood Pressure 148/70 H Pulse Oximetry 97 Oxygen Delivery Method Room Air Medical Decision Making [facility] Narrative Medical decision making narrative: [57] year old patient presents with pain, bruising and swelling of right index finger after injury Multiple etiologies for patient's symptoms considered including, but not limited to: [Fracture versus dislocation versus soft tissue injury versus other] Prior Charts reviewed in our EMR Primary Historian: patient Imaging reviewed: Finger X ray notes probable small avulsion fracture to distal portion of middle phalanx Patient's symptoms improved over duration of stay with above-stated therapies. Findings and discharge diagnosis discussed with patient/family followed by verbalization of understanding Return precautions discussed with patient/family whom verbalize understanding of diagnosis and plan Discharge Plan Departure Patient Disposition: Home Clinical Impression: Avulsion fracture of middle phalanx of finger Instructions: DI for Finger Fracture Activity Restrictions/Additional Instructions: *You have been diagnosed with Small R index finger fracture. *What to do: *Please continue to take your regular medications as directed. [ ] New medication prescriptions sent to your pharmacy: [ ] [ ] New medication written as a paper prescription [x] Tylenol for pain *Please follow up with [Carol] of [facility] in 2-3 days, call for an appointment. Let them know you were seen in the Emergency Department and that we ask that you be seen in follow up. We will electronically transmit a record of today's note if your PCP is in our system *Return to Emergency Department if you should have any new, worsening or concerning symptoms, such as [worsening pain, significant swelling, cold extremities, numbness, tingling, weakness or other bothersome symptoms Splint Care: Keep splint clean and dry. Elevated affected body part to decrease swelling. OK to use ice pack on the affected body part. Use for 15-20 minutes each time, for 5-6x per day. If you develop worsening pain, numbness, tingling, discoloration of the affected body part, loosen the splint by loosening the VICKI wrap, and either see your doctor for an urgent re-assessment, or return to the Emergency Department. Return to the Emergency Department for any new or worsening symptoms. Radiographic study has been interpreted by an emergency physician. The official diagnosis by radiology will be performed within the next 24 hours and should there be any change in outcome we will notify you of how to proceed. Referrals: Jay Medina MD [Physician] - Miscellaneous,MD Rony [Non-Staff] - Stand Alone Forms: Patient Portal/API
[2022-08-28 02:47] VITALS: BP 148/70; PULSE 76; RESP 15; TEMP 36.1; O2SAT 97; BMI 36.0
--- NOTE | 2022-08-28 02:50 | DI.RAD.S_ITS ---
PROCEDURE: XR FINGER RT MIN 2V INDICATIONS: jammed index finger, now swollen, ecchymotic TECHNIQUE: PA hand, 2 views of the index finger acquired. COMPARISON: None. FINDINGS: Bones: Small osseous fragment is seen at the distal ulnar aspect of the 2nd middle phalangeal head adjacent to the distal interphalangeal joint, which may be degenerative. There is a subtle nondisplaced oblique fracture at the volar base of the 2nd middle phalanx seen on lateral view only with extension into the proximal interphalangeal joint. Soft tissues: No suspicious soft tissue calcifications. Soft tissue edema is noted in the index finger, which is most prominent at the proximal interphalangeal joint. IMPRESSION: Small nondisplaced intra-articular fracture at the volar base of the 2nd middle phalanx. Discrepancy is noted with the overnight preliminary report, and was discussed with Dr. Sahu of the emergency department by telephone on 08/28/2022 at 8:04 AM. Approved by: Lee Roca M.D. on 08/28/2022 at 8:04
== END 2022-08-28 03:13 | disposition home or self-care (01) ==
PROVIDERS: Emergency Provider Emergency Medicine; PCP Family Medicine
DX: S62.620A Displaced fracture of middle phalanx of right index finger, initial encounter for closed fracture (principal); W23.0XXA Caught, crushed, jammed, or pinched between moving objects, initial encounter
CPT/HCPCS: 29130; 73140; 99283

== ENCOUNTER → 2022-11-20 13:48 | Outpatient (CLI) | payer OTHER, MEDICAID, SELFPAY ==
[2022-07-16 14:42] VITALS: BMI 35.9
--- NOTE | 2022-11-20 | DI.ECHO.S_ITS ---
[facility] +---------+ : : [address] : [place] : : : : [id number] : : : : Phone: [phone] Echocardiogram Report + + :Name: SOLEDAD PARDO Study Date: 11/20/2022 Height: 64 in : :[facility] ReadingLocation: Weight: 211 lb : : Gender: Female BSA: 2.0 m2 : :: 1965 Age: 57 yrs BP: 129/87 mmHg: :Reason For Study: CARDIOMYOPATHY : :Ordering Physician: REGI, : :CHERRY Cazares Performed By: Jaimie Grimes : :Referring: CHERRY RAINEY : + + Interpretation Summary The ejection fraction is estimated to be 55-60%. Diastolic parameters suggest probable normal left ventricular diastolic function and normal filling pressures. The left atrium is borderline dilated. The right ventricle is normal in size and function. There is mild mitral regurgitation. There is mild to moderate tricuspid regurgitation. The right ventricular systolic pressure is estimated to be at least 31 mmHg based on an estimated right atrial pressure of 3 mm Hg. Compared to the prior study dated 07/17/2022, the patient is in sinus rhythm and the ejection fraction is now normal. The right ventricle now appears normal in size with preserved systolic function. There is a decrease in the tricuspid regurgitation. Procedure: A two-dimensional transthoracic echocardiogram with color flow and Doppler was performed. The study quality was technically adequate. Comparison is made with the echocardiogram of 07/17/2022. The patient was in sinus rhythm with heart rates between 63-76 bpm during the exam. Left Ventricle: The left ventricle is normal in size and wall thickness. The ejection fraction is estimated to be 55-60%. Diastolic parameters suggest probable normal left ventricular diastolic function and normal filling pressures. Right Ventricle: The right ventricle is normal in size and function. Atria: The left atrium is borderline dilated. Right atrial size is normal. There is no Doppler evidence for an interatrial shunt. Mitral Valve: The mitral valve is normal. There is mild mitral regurgitation. Aortic Valve: The aortic valve is not well visualized. The aortic valve opens well. There is no aortic valve stenosis. No aortic regurgitation is present. Tricuspid Valve: The tricuspid valve is normal in structure and function. There is mild to moderate tricuspid regurgitation. The right ventricular systolic pressure is estimated to be at least 31 mmHg based on an estimated right atrial pressure of 3 mm Hg. Pulmonic Valve: The pulmonic valve leaflets are thin and pliable; valve motion is normal. There is no pulmonic valvular regurgitation. Great Vessels: The aortic root is normal size. The dimensions of the ascending aorta are normal. The IVC is of normal diameter and collapses greater than 50% with a sniff. This suggests a low right atrial pressure of 3 mm Hg. Pericardium/ Pleura There is no pericardial effusion. There is no pleural effusion. MMode/2D Measurements & Calculations LVIDd: 4.6 cm LVOT diam: 2.3 cm LVIDs: 3.2 cm Ao root diam: 3.3 cm FS: 29.8 % asc Aorta Diam: 3.2 cm EPSS: 0.40 cm Ao Arch Diam (Prox Trans): 3.2 cm IVSd: 0.88 cm LVPWd: 0.96 cm LV feliz. diameter/BSA (cm/m^2): 2.3 LV sys. diameter/BSA (cm/m^2): 1.6 LA A2 area: 23.2 cm2 RA long axis: 5.2 cm LA A4 area: 22.5 cm2 RA area: 18.0 cm2 LA length (vol): 5.8 cm RA vol: 53.0 ml LA vol: 76.6 ml RA : 26.5 ml/m2 LA vol index: 38.3 ml/m2 IVC diam: 1.3 cm RVD1 (basal): 4.0 cm RVD2 (mid): 3.9 cm TAPSE: 1.8 cm Doppler Measurements & Calculations Ao V2 max: 131.0 cm/sec LVOT Max Ryder: 107.6 cm/sec Ao V2 mean: 96.9 cm/sec LV V1 max P.6 mmHg Ao max P.9 mmHg LV V1 VTI: 23.1 cm Ao mean P.0 mmHg KENDRICK(I,D): 3.7 cm2 Ao V2 VTI: 26.9 cm KENDRICK(V,D): 3.5 cm2 sev ratio: 0.86 KENDRICK indexed to BSA (cm^2/m^2): 1.8 MV E max ryder: 50.2 cm/sec TR max ryder: 262.8 cm/sec MV A max ryder: 54.2 cm/sec TR max P.6 mmHg MV E/A: 0.93 PA V2 max: 95.3 cm/sec Med Peak E' Ryder: 9.9 cm/sec PA V2 mean: 67.4 cm/sec E/E' med: 5.1 PA mean P.1 mmHg Lat Peak E' Ryder: 11.8 cm/sec PA pr(Accel): 8.8 mmHg E/E' lat: 4.3 E/e' average: 4.7 MV dec time: 0.28 sec SV(LVOT): 99.4 ml Reading Physician:05:16 PM
== END ==
PROVIDERS: PCP Family Medicine; Referring Provider Internal Medicine Cardiovascular Disease; Visit Provider Internal Medicine Cardiovascular Disease
DX: I08.1 Rheumatic disorders of both mitral and tricuspid valves (principal); I42.9 Cardiomyopathy, unspecified
CPT/HCPCS: 93306

== ENCOUNTER 2023-01-25 17:16 | Emergency (ER) | payer OTHER, MEDICAID, SELFPAY ==
[2022-07-16 14:42] VITALS: BMI 35.9
[2023-01-25] VITALS (7 sets, daily range): BP systolic 117–151; BP diastolic 67–85; PULSE 65–113; RESP 16–21; TEMP 36.6; O2SAT 98–100; BMI 35.4
--- NOTE | 2023-01-25 17:26 | DI.RAD.S_ITS ---
PROCEDURE: XR CHEST 1V INDICATIONS: chest pain TECHNIQUE: One view of the chest was acquired. COMPARISON: [facility], CR, XR CHEST 1V, 08/15/2022, 12:43. FINDINGS: Surgical changes and devices: None. Lungs and pleura: An incomplete inspiratory result is noted, causing a crowded appearance to the lung markings. No focal infiltrates are seen. No pneumothorax or significant pleural effusions are seen. Mediastinum: Mediastinal contours appear normal. Heart size is normal. Bones and chest wall: No suspicious bony lesions. Age-appropriate bony degenerative changes are seen. Overlying soft tissues appear unremarkable. IMPRESSION: Low lung volumes, without an acute abnormality seen by plain film. Dictated by: Vineet Parr M.D. on 01/25/2023 at 16:54 Approved by: Vineet Parr M.D. on 01/25/2023 at 16:54
--- NOTE | 2023-01-25 17:33 | PC.NURSE ---
Heart and lung sounds auscultated. HR is rapid and irregular lung sounds clear bilaterally.
[2023-01-25 17:47] LABS: Add Manual Diff / Slide Review NO; Basophils Absolute Auto 0 /uL (0-100); Basophils Percent Auto 0.8 % (0-2); Eosinophils Absolute Auto 100 /uL (0-450); Eosinophils Percent Auto 2.3 % (2-4); Hematocrit 39.4 % (36-46); Hemoglobin 13.1 g/dL (12.0-16.0); Lymphocytes Absolute Auto 1700 /uL (1100-4500); Lymphocytes Percent Auto 29.4 % (25-40); Mean Corpuscular HGB Conc 33.2 % (30-36); Mean Corpuscular Hemoglobin 28.9 PG (26-34); Monocytes Absolute Auto 400 /uL (0-900); Monocytes Percent Auto 6.2 % (3-14); Neutrophils Absolute Auto 3600 /uL (1500-7000); Neutrophils Percent Auto 61.3 % (50-75); Platelet Count 249 X10^3/uL (150-400); Red Blood Cell Count 4.52 X10^6/uL (4.0-5.2); White Blood Cell Count 5.9 X10^3/uL (4.5-11.0)
[2023-01-25 17:50] LABS: INR 1.2 (0.9-1.3); Prothrombin Time 13.7 SECONDS (9.4-12.5)
[2023-01-25 17:52] LABS: PTT Partial Thromboplastin Tim 38 SECONDS (25.1-36.5)
[2023-01-25 17:54] LABS: Alanine Aminotransferase 29 IU/L (<35); Albumin 4.6 g/dL (3.5-5.0); Albumin Globulin Ratio 1.3 (1.0-2.8); Alkaline Phosphatase 60 U/L (38-126); Aspartate Aminotransferase 30 IU/L (14-36); BUN Creatinine Ratio 29.2 (6-22); Bilirubin Total 0.5 mg/dL (0.2-1.3); Blood Urea Nitrogen 26 mg/dL (7-17); Calcium 9.8 mg/dL (8.4-10.2); Carbon Dioxide 28 mmol/L (22-32); Chloride 103 mmol/L (98-107); Creatine Kinase 123 U/L (30-135); Estimated Glomerular Filt Rate > 60 mL/min (>60); Globulin 3.5 g/dL (1.7-4.1); Glucose 105 mg/dL (70-100); HEMOLYSIS < 15 (0-50); Lipase 209 U/L (23-300); Potassium 3.5 mmol/L (3.4-5.1); Sodium 139 mmol/L (137-145); Total Protein 8.1 g/dL (6.3-8.2)
[2023-01-25 18:06] LABS: Troponin I < 0.012 ng/mL (0.01-0.034)
--- NOTE | 2023-01-25 18:20 | ED_ITS ---
HPI - Arrhythmia/Palpitations General Chief Complaint: Arrhythmia/Palpitations Stated Complaint: HR irregular Time Seen by Provider: 01/25/23 17:55 Source: patient Mode of arrival: Ambulatory History of Present Illness HPI narrative: 57-year-old female. Has had a history of atrial fibrillation. Is on metoprolol and also Eliquis. For the past 3 weeks she is had increasing episodes of feeling like her heart rate is beating fast becoming lightheaded and coughing with it. The reason she came in today is because the symptoms happened today. She is not having any the time of my evaluation. She has been taking her medicines as directed for least the past week but does admit that she has missed some doses of her medicines in the past. She also states she sometimes feels like her heart rate is low. She has a way of checking her heart rate at home and sometimes it reads in the 40s to 60 range. She does sometimes get chest pain with the symptoms. Related Data Home Medications Medication Instructions Recorded Confirmed apixaban 5 mg tablet (Eliquis) 5 mg PO BID 01/25/23 01/25/23 Previous Rx's Medication Instructions Recorded cyclobenzaprine 10 mg tablet 10 mg PO TID PRN muscle spasm #15 / tabs naproxen 500 mg tablet,delayed 500 mg PO Q12H PRN pain #20 tabs 04/18/19 release hydrocodone 5 mg-acetaminophen 325 1 tab PO Q4-6H PRN pain #14 tabs //21 mg tablet hydrochlorothiazide 25 mg tablet 25 mg PO DAILY #30 tabs 03/06/21 lisinopril 10 mg tablet 10 mg PO DAILY #30 tabs 03/06/21 Allergies Allergy/AdvReac Type Severity Reaction Status Date / Time morphine [MORPHINE] Allergy Mild ITCH Verified 01/25/23 17:26 oxycodone [From PERCOCET] Allergy Unknown Verified 01/25/23 17:26 Review of Systems Constitutional Constitutional: Reports system reviewed and no additional complaints, except as documented Cardiovascular Cardiovascular: Reports system reviewed and no additional complaints, except as documented Respiratory Respiratory: Reports system reviewed and no additional complaints, except as documented Gastrointestinal Gastrointestinal: Reports system reviewed and no additional complaints, except as documented Integumentary/Breasts Skin/Breast: Reports system reviewed and no additional complaints, except as documented Hematologic/Lymphatic On Anticoagulants: Yes Patient History Medical History Hypertension Acute carpal tunnel syndrome of right wrist Lumbar back pain with radiculopathy affecting right lower extremity Surgical History No significant past surgical history Status post surgery (07/18/08) Social History household members: significant other Smoking Status: Never smoker Smoking Status: Never smoker alcohol intake frequency: a few times a week Alcohol type: wine Substance Use Type: does not use Exam Initial Vital Signs Initial Vital Signs: Vital Signs Pulse Rate 87 01/25/23 17:23 Respiratory Rate 16 01/25/23 17:23 Pulse Oximetry 100 01/25/23 17:23 HENMT Head: normal to inspection and normocephalic Resp Effort & Inspection: normal respiratory effort Auscultation: clear to auscultation bilaterally Cardio Rate: regular rate Rhythm: regular rhythm GI Inspection: normal to inspection and non-distended Skin General: no rashes or lesions noted Neuro General: patient alert, patient awake and moves all extremities Extrem General: capillary refill normal Scores GCS Inland coma scale eye opening: Spontaneous Anthony coma scale verbal response: Orientated Anthony coma scale motor response: Obey commands Inland coma scale total score: 15 Course Orders Ordered: ED Orders 01/25/23 17:25 Complete Blood Count AUTO DIFF Stat Comprehensive Metabolic Panel Stat Lipase Stat Magnesium Stat PTT Partial Thromboplastin Juventino Stat Prothrombin Time INR Stat Troponin & CK Cardiac Panel Stat 01/25/23 17:26 XR chest 1V Stat 01/25/23 17:34 EKG-12 Lead Stat Discontinued Medications Aspirin (Aspirin 81 Mg Chew Tab) 324 mg PO NOW ONE Stop: 01/25/23 17:27 Last Admin: 01/25/23 18:01 Dose: Not Given Documented By: VANGIE Vital Signs Vital signs: Vital Signs - 8 hr 01/25/23 17:23 01/25/23 17:24 01/25/23 17:30 Temperature 97.8 F Pulse Rate 87 113 H Respiratory Rate 16 18 Blood Pressure 147/74 H 130/67 Pulse Oximetry 100 100 Oxygen Delivery Method Room Air 01/25/23 17:30 01/25/23 18:00 01/25/23 18:01 Temperature Pulse Rate 86 67 Respiratory Rate 21 20 Blood Pressure 151/85 H Pulse Oximetry 100 100 Oxygen Delivery Method 01/25/23 18:01 01/25/23 18:30 01/25/23 18:31 Temperature Pulse Rate 65 69 Respiratory Rate 19 16 Blood Pressure 117/74 Pulse Oximetry 100 99 Oxygen Delivery Method 01/25/23 18:31 Temperature Pulse Rate 71 Respiratory Rate 20 Blood Pressure Pulse Oximetry 98 Oxygen Delivery Method MDM - Arrhythmia/Palpitations Lab Data Attestation: I reviewed the patient's lab results. 01/25/23 17:25 01/25/23 17:25 Labs: Lab Results 01/25/23 Range/Units 17:25 WBC 5.9 (4.5-11.0) X10^3/uL RBC 4.52 (4.0-5.2) X10^6/uL Hgb 13.1 (12.0-16.0) g/dL Hct 39.4 (36-46) % MCV 87.0 (80-100) fL MCH 28.9 (26-34) PG MCHC 33.2 (30-36) % RDW 13.0 (11.6-14.8) % Plt Count 249 (150-400) X10^3/uL Neut % (Auto) 61.3 (50-75) % Lymph % (Auto) 29.4 (25-40) % Sandoval % (Auto) 6.2 (3-14) % Eos % (Auto) 2.3 (2-4) % Baso % (Auto) 0.8 (0-2) % Neut # (Auto) 3600 (4023-4735) /uL Lymph # (Auto) 1700 (0895-1026) /uL Sandoval # (Auto) 400 (0-900) /uL Eos # (Auto) 100 (0-450) /uL Baso # (Auto) 0 (0-100) /uL PT 13.7 H (9.4-12.5) SECONDS INR 1.2 (0.9-1.3) APTT 38 H (25.1-36.5) SECONDS Sodium 139 (137-145) mmol/L Potassium 3.5 (3.4-5.1) mmol/L Chloride 103 (98-107) mmol/L Carbon Dioxide 28 (22-32) mmol/L BUN 26 H (7-17) mg/dL Creatinine 0.89 (0.52-1.04) mg/dL Estimated GFR > 60 (>60) mL/min BUN/Creatinine Ratio 29.2 H (6-22) Glucose 105 H (70-100) mg/dL Calcium 9.8 (8.4-10.2) mg/dL Magnesium 2.0 (1.6-2.3) mg/dL Total Bilirubin 0.5 (0.2-1.3) mg/dL AST 30 (14-36) IU/L ALT 29 (<35) IU/L Alkaline Phosphatase 60 (38-126) U/L Total Creatine Kinase 123 (30-135) U/L Troponin I < 0.012 (0.01-0.034) ng/mL Total Protein 8.1 (6.3-8.2) g/dL Albumin 4.6 (3.5-5.0) g/dL Globulin 3.5 (1.7-4.1) g/dL Albumin/Globulin Ratio 1.3 (1.0-2.8) Lipase 209 (23-300) U/L Imaging Data Chest x-ray: Radiologist's Impresson: PROCEDURE: XR CHEST 1V INDICATIONS: chest pain TECHNIQUE: One view of the chest was acquired. COMPARISON: [facility], , XR CHEST 1V, 08/15/2022, 12:43. FINDINGS: Surgical changes and devices: None. Lungs and pleura: An incomplete inspiratory result is noted, causing a crowded appearance to the lung markings. No focal infiltrates are seen. No pneumothorax or significant pleural effusions are seen. Mediastinum: Mediastinal contours appear normal. Heart size is normal. Bones and chest wall: No suspicious bony lesions. Age-appropriate bony degenerative changes are seen. Overlying soft tissues appear unremarkable. IMPRESSION: Low lung volumes, without an acute abnormality seen by plain film. ECG Data Attestation: I personally reviewed and interpreted this ECG as follows: Interpretation: Sinus rhythm Ventricular rate is 75 Normal axis Normal QRS Normal QTC Nonspecific ST T wave changes MDM Narrative Medical decision making narrative: Patient is in sinus rhythm here in the ER. Her rate is in the 60s. I suspect that she is having periodic episodes of atrial fibrillation and according to how she is checking her heart rate at home potentially is having episodes of bradycardia. I did discuss the case with Dr. Ward who is on-call for the patient's set up [employer] who stated that there was not enough information available to switch from metoprolol to another medication. The patient would need Holter monitor to evaluate as to whether not she is having episodes of AFib or potentially even episodes of bradycardia. No indication for admission to the hospital. Will have her contact her set up [employer] on Friday for a follow-up. She was given return precautions. She expressed understanding and agreement. Discharge Plan Departure Patient Disposition: Home Clinical Impression: Palpitations Instructions: DI for Arrhythmias Activity Restrictions/Additional Instructions: Do recommend that you continue to take all of your medications as directed. Contact your set up mechanic [employer] on Friday for a follow-up. Return to the emergency department for new or worsening symptoms. Prescriptions: No Action hydrocodone-acetaminophen 5-325 mg tablet 1 tab PO Q4-6H PRN (Reason: pain) Qty: 14 0RF lisinopril 10 mg tablet 10 mg PO DAILY Qty: 30 0RF hydrochlorothiazide 25 mg tablet 25 mg PO DAILY Qty: 30 0RF naproxen 500 mg tablet,delayed release (DR/EC) 500 mg PO Q12H PRN (Reason: pain) Qty: 20 0RF cyclobenzaprine 10 mg tablet 10 mg PO TID PRN (Reason: muscle spasm) Qty: 15 0RF Eliquis 5 mg tablet 5 mg PO BID Referrals: Paco Angel MD [Primary Care Provider] - Stand Alone Forms: Patient Portal/API
== END 2023-01-25 18:56 | disposition home or self-care (01) ==
PROVIDERS: Emergency Medicine; Emergency Provider Emergency Medicine; PCP Family Medicine
DX: R00.2 Palpitations (principal); I49.1 Atrial premature depolarization; I10 Essential (primary) hypertension; Z79.01 Long term (current) use of anticoagulants; Z79.899 Other long term (current) drug therapy
CPT/HCPCS: 36415; 71045; 80053; 82550; 83690; 83735; 84484; 85025; 85610; 85730; 93005; 93010; 99283; 99284

== ENCOUNTER 2023-01-27 22:28 | Emergency (ER) | payer OTHER, MEDICAID, SELFPAY ==
[2022-07-16 14:42] VITALS: BMI 35.9
[2023-01-27 22:36] VITALS: BP 157/81; PULSE 109; RESP 20; TEMP 37.1; O2SAT 96; BMI 35.1
[2023-01-27 22:56] VITALS: PULSE 69; RESP 18; O2SAT 97
--- NOTE | 2023-01-27 23:00 | PC.NURSE ---
pt states her oximeter showed her having a HR of 26 and her apple watch had 37, pt placed on monitor upon arrival the monitor HR was 94 while the watch had 37,
--- NOTE | 2023-01-27 23:09 | ED_ITS ---
HPI - Arrhythmia/Palpitations General Chief Complaint: Arrhythmia/Palpitations Stated Complaint: Tachycardia HR in 20s... Time Seen by Provider: 01/27/23 22:33 Source: patient Mode of arrival: Ambulatory History of Present Illness HPI narrative: 57-year-old female. Is on Eliquis. Also takes metoprolol. Was seen here in the emergency department a couple days ago for history of AFib and palpitations. She is here today because she states that the pulse oximeter that she has at home stated that her heart rate was in the 20s and 30s. She did not take her metoprolol this evening because she stated that she talked with her physical therapy assistant office nurse who told her that if her heart rate was that low that she should not take the medicine. She is having some chest tightness and occasional fluttering. Related Data Home Medications Medication Instructions Recorded Confirmed apixaban 5 mg tablet (Eliquis) 5 mg PO BID 01/25/23 01/25/23 Previous Rx's Medication Instructions Recorded cyclobenzaprine 10 mg tablet 10 mg PO TID PRN muscle spasm #15 04/18/19 tabs naproxen 500 mg tablet,delayed 500 mg PO Q12H PRN pain #20 tabs 04/18/19 release hydrocodone 5 mg-acetaminophen 325 1 tab PO Q4-6H PRN pain #14 tabs 05/15/ mg tablet hydrochlorothiazide 25 mg tablet 25 mg PO DAILY #30 tabs 03/06/21 lisinopril 10 mg tablet 10 mg PO DAILY #30 tabs 03/06/21 Allergies Allergy/AdvReac Type Severity Reaction Status Date / Time morphine [MORPHINE] Allergy Mild ITCH Verified 01/25/23 17:26 oxycodone [From PERCOCET] Allergy Unknown Verified 01/25/23 17:26 Review of Systems Constitutional Constitutional: Reports system reviewed and no additional complaints, except as documented Cardiovascular Cardiovascular: Reports system reviewed and no additional complaints, except as documented Respiratory Respiratory: Reports system reviewed and no additional complaints, except as documented Integumentary/Breasts Skin/Breast: Reports system reviewed and no additional complaints, except as documented Hematologic/Lymphatic On Anticoagulants: Yes Patient History Medical History Hypertension Acute carpal tunnel syndrome of right wrist Lumbar back pain with radiculopathy affecting right lower extremity Surgical History No significant past surgical history Status post surgery (07/18/08) Social History household members: significant other Smoking Status: Never smoker Smoking Status: Never smoker alcohol intake frequency: a few times a week Alcohol type: wine Substance Use Type: does not use Exam Initial Vital Signs Initial Vital Signs: Vital Signs Temperature 98.8 F 01/27/23 22:36 Pulse Rate 109 H 01/27/23 22:36 Respiratory Rate 20 01/27/23 22:36 Blood Pressure 157/81 H 01/27/23 22:36 Pulse Oximetry 96 01/27/23 22:36 Oxygen Delivery Method Room Air 01/27/23 22:36 HENMT Head: normal to inspection and normocephalic Resp Effort & Inspection: normal respiratory effort Cardio Rate: regular rate Rhythm: abnormal rhythm Skin General: no rashes or lesions noted Neuro General: patient alert, patient awake and moves all extremities Extrem General: capillary refill normal Course Orders Ordered: ED Orders 01/27/23 22:34 EKG-12 Lead Stat Vital Signs Vital signs: Vital Signs - 8 hr 01/27/23 22:36 01/27/23 22:56 Temperature 98.8 F Pulse Rate 109 H 69 Respiratory Rate 20 18 Blood Pressure 157/81 H Pulse Oximetry 96 97 Oxygen Delivery Method Room Air MDM - Arrhythmia/Palpitations ECG Data Attestation: I personally reviewed and interpreted this ECG as follows: Interpretation: Sinus rhythm Ventricular rate 96 Occasional PACs Occasional PVCs Normal axis Nonspecific ST T wave changes MDM Narrative Medical decision making narrative: Patient is not in atrial fibrillation. She is clear P waves in front of the QRS complexes. She is having frequent PACs and also occasional PVCs. It appears that her pulse oximeter is not matching up to what her heart rate is on the monitor. I wonder if the pulse oximeter is having problems determining her heart rate because of the irregularity secondary to the PACs/PVCs. I advised her that she should take her metoprolol as this may decrease the frequency of these irregularities. We will hold on further workup for now. No indication for labs or x-rays. Low suspicion for ACS. No indication for cardioversion. Will have her contact her primary provider and physical therapy assistant for follow-up. She was given return precautions. She expressed understanding and agreement. Discharge Plan Departure Patient Disposition: Home Clinical Impression: Atrial premature contractions, Premature ventricular contraction Instructions: Arrhythmias Activity Restrictions/Additional Instructions: Do recommend that you continue to take all of your medications as directed. I would recommend that you take your metoprolol this evening when you return home. Contact your physical therapy assistant for follow-up. Return to emergency department for new symptoms. Prescriptions: No Action hydrocodone-acetaminophen 5-325 mg tablet 1 tab PO Q4-6H PRN (Reason: pain) Qty: 14 0RF lisinopril 10 mg tablet 10 mg PO DAILY Qty: 30 0RF hydrochlorothiazide 25 mg tablet 25 mg PO DAILY Qty: 30 0RF naproxen 500 mg tablet,delayed release (DR/EC) 500 mg PO Q12H PRN (Reason: pain) Qty: 20 0RF cyclobenzaprine 10 mg tablet 10 mg PO TID PRN (Reason: muscle spasm) Qty: 15 0RF Eliquis 5 mg tablet 5 mg PO BID Referrals: Paco Angel MD [Primary Care Provider] - Stand Alone Forms: Patient Portal/API
== END 2023-01-27 23:17 | disposition home or self-care (01) ==
PROVIDERS: Emergency Provider Emergency Medicine; PCP Family Medicine
DX: I49.1 Atrial premature depolarization (principal); I49.3 Ventricular premature depolarization; Z79.01 Long term (current) use of anticoagulants
CPT/HCPCS: 93005; 99281; 99282

== ENCOUNTER 2023-03-26 08:48 | Emergency (ER) | payer OTHER, SELFPAY ==
[2022-07-16 14:42] VITALS: BMI 35.9
[2023-03-26] VITALS (73 sets, daily range): BP systolic 90–152; BP diastolic 51–105; PULSE 58–160; RESP 11–50; TEMP 36.7; O2SAT 75–100; BMI 36.0
--- NOTE | 2023-03-26 09:06 | DI.RAD.S_ITS ---
PROCEDURE: XR CHEST 1V INDICATIONS: chest pain TECHNIQUE: One view of the chest was acquired. COMPARISON: [facility], CR, XR CHEST 1V, 01/25/2023, 17:38. FINDINGS: Surgical changes and devices: None. Lungs and pleura: Lungs are clear. No pleural effusions or pneumothorax. Mediastinum: Mediastinal contours appear normal. Heart size is mildly prominent. Bones and chest wall: No suspicious bony lesions. Overlying soft tissues appear unremarkable. IMPRESSION: No acute pulmonary process. Dictated by: Kandis Perez M.D. on 03/26/2023 at 9:57 Approved by: Kandis Perez M.D. on 03/26/2023 at 9:58
[2023-03-26] MEDS: METOPROLOL TARTRATE 5 MG/5 ML INJ IV ×3 (09:11→09:26)
[2023-03-26] MEDS: ASPIRIN 81 MG CHEW TAB 324 MG PO (09:15)
--- NOTE | 2023-03-26 09:28 | ED.ARRPALP ---
HPI - Arrhythmia/Palpitations General Chief Complaint: Arrhythmia/Palpitations Stated Complaint: almost passed [address] here, heart issues,low bp Time Seen by Provider: 03/26/23 08:49 Source: patient Mode of arrival: Ambulatory History of Present Illness HPI narrative: 58 year old female with history tachycardia presents by private vehicle from home for lightheadedness and issues with her heart rate for several days. Patient takes Eliquis and metoprolol from her agricultural produce sorter Dr. Rainey. She recently completed wearing a Holter monitor and is pending a referral to electrophysiology. Patient states she has been compliant with her medications, but her heart rate we will elevate and she feels like she is going to pass out. Several days ago she tried to increase her metoprolol from 12.5 mg b.i.d. to 25 mg b.i.d., but it did not help her symptoms and she cut back down to 12.5 mg b.i.d.. Related Data Home Medications Medication Instructions Recorded Confirmed apixaban 5 mg tablet (Eliquis) 5 mg PO BID 01/25/23 01/25/23 Previous Rx's Medication Instructions Recorded cyclobenzaprine 10 mg tablet 10 mg PO TID PRN muscle spasm #15 04/18/19 tabs naproxen 500 mg tablet,delayed 500 mg PO Q12H PRN pain #20 tabs 04/18/19 release hydrocodone 5 mg-acetaminophen 325 1 tab PO Q4-6H PRN pain #14 tabs 05/15/ mg tablet hydrochlorothiazide 25 mg tablet 25 mg PO DAILY #30 tabs 03/06/21 lisinopril 10 mg tablet 10 mg PO DAILY #30 tabs 03/06/21 diltiazem HCl 180 mg capsule,24 180 mg PO DAILY #30 caps 03/26/23 hr,extended release Allergies Allergy/AdvReac Type Severity Reaction Status Date / Time morphine [MORPHINE] Allergy Mild ITCH Verified 03/26/23 09:07 oxycodone [From PERCOCET] Allergy Unknown Verified 03/26/23 09:07 Review of Systems Review of Systems Narrative: Negative except as noted above Patient History Medical History Hypertension Acute carpal tunnel syndrome of right wrist Lumbar back pain with radiculopathy affecting right lower extremity Surgical History No significant past surgical history Status post surgery (07/18/08) Social History household members: significant other Smoking Status: Never smoker Smoking Status: Never smoker alcohol intake frequency: a few times a week Alcohol type: wine Substance Use Type: does not use Exam Initial Vital Signs Initial Vital Signs: Vital Signs Pulse Oximetry 100 03/26/23 08:54 Const: Awake, alert, no acute distress, nontoxic appearing Cardiac: Tachycardia, regular rhythm RESP: unlabored, clear bilaterally, no wheezing GI: Atraumatic, soft, nontender, nondistended, no rebound, no guarding MSK: Atraumatic, full range of motion, pulses equal Skin: Warm, Dry, intact, no rashes Neuro: AO x3, CN II-XII grossly intact, moves all extremities Psych: affect normal, mood normal, not suicidal, not homicidal Course Orders Ordered: Discontinued Medications Aspirin (Aspirin 81 Mg Chew Tab) 324 mg PO NOW ONE Stop: 03/26/23 09:07 Last Admin: 03/26/23 09:15 Dose: 324 mg Documented By: HAYLIE Diltiazem HCl (Diltiazem 5 Mg/Ml Sdv) 15 mg IV NOW ONE Stop: 03/26/23 09:36 Last Admin: 03/26/23 09:39 Dose: 15 mg Documented By: HAYLIE Sodium Chloride (Normal Saline 0.9%) 1,000 mls @ 1,000 mls/hr IV BOLUS ONE Stop: 03/26/23 12:45 Last Infusion: 03/26/23 13:50 Dose: Infused Documented By: HAYLIE(2) Admin: 03/26/23 12:04 Dose: 1,000 mls/hr Documented By: HAYLIE Metoprolol Tartrate (Metoprolol Tartrate 5 Mg/5 Ml Inj) 5 mg IV Q5M JOSE M Stop: 03/26/23 09:26 Last Admin: 03/26/23 09:26 Dose: 5 mg Documented By: Admin: 03/26/23 09:18 Dose: 5 mg Documented By: Admin: 03/26/23 09:11 Dose: 5 mg Documented By: HAYLIE Vital Signs Vital signs: Vital Signs - 8 hr 03/26/23 08:54 03/26/23 08:55 03/26/23 08:55 Temperature Pulse Rate 66 Pulse Rate [Orthostatic Lying] Pulse Rate [Orthostatic Sitting] Pulse Rate [Orthostatic Standing] Respiratory Rate Blood Pressure 145/69 H Blood Pressure [Orthostatic Lying] Blood Pressure [Orthostatic Sitting] Blood Pressure [Orthostatic Standing] Pulse Oximetry 100 100 Oxygen Delivery Method 03/26/23 08:58 03/26/23 09:00 03/26/23 09:00 Temperature 98.0 F Pulse Rate 66 145 H Pulse Rate [Orthostatic Lying] Pulse Rate [Orthostatic Sitting] Pulse Rate [Orthostatic Standing] Respiratory Rate 18 32 H Blood Pressure 145/69 H 140/76 Blood Pressure [Orthostatic Lying] Blood Pressure [Orthostatic Sitting] Blood Pressure [Orthostatic Standing] Pulse Oximetry 100 100 Oxygen Delivery Method Room Air 03/26/23 09:14 03/26/23 09:14 03/26/23 09:16 Temperature Pulse Rate 155 H 156 H Pulse Rate [Orthostatic Lying] Pulse Rate [Orthostatic Sitting] Pulse Rate [Orthostatic Standing] Respiratory Rate 14 17 Blood Pressure 135/85 Blood Pressure [Orthostatic Lying] Blood Pressure [Orthostatic Sitting] Blood Pressure [Orthostatic Standing] Pulse Oximetry 98 97 Oxygen Delivery Method 03/26/23 09:16 03/26/23 09:22 03/26/23 09:22 Temperature Pulse Rate 146 H Pulse Rate [Orthostatic Lying] Pulse Rate [Orthostatic Sitting] Pulse Rate [Orthostatic Standing] Respiratory Rate 21 Blood Pressure 131/104 H 130/82 Blood Pressure [Orthostatic Lying] Blood Pressure [Orthostatic Sitting] Blood Pressure [Orthostatic Standing] Pulse Oximetry 97 Oxygen Delivery Method 03/26/23 09:26 03/26/23 09:26 03/26/23 09:30 Temperature Pulse Rate 160 H 147 H Pulse Rate [Orthostatic Lying] Pulse Rate [Orthostatic Sitting] Pulse Rate [Orthostatic Standing] Respiratory Rate 20 15 Blood Pressure 152/105 H Blood Pressure [Orthostatic Lying] Blood Pressure [Orthostatic Sitting] Blood Pressure [Orthostatic Standing] Pulse Oximetry 98 100 Oxygen Delivery Method 03/26/23 09:31 03/26/23 09:31 03/26/23 09:36 Temperature Pulse Rate 153 H Pulse Rate [Orthostatic Lying] Pulse Rate [Orthostatic Sitting] Pulse Rate [Orthostatic Standing] Respiratory Rate 19 Blood Pressure 110/59 L 142/65 H Blood Pressure [Orthostatic Lying] Blood Pressure [Orthostatic Sitting] Blood Pressure [Orthostatic Standing] Pulse Oximetry 98 Oxygen Delivery Method 03/26/23 09:36 03/26/23 09:39 03/26/23 09:40 Temperature Pulse Rate 144 H 148 H Pulse Rate [Orthostatic Lying] Pulse Rate [Orthostatic Sitting] Pulse Rate [Orthostatic Standing] Respiratory Rate 13 Blood Pressure 142/65 H 141/68 H Blood Pressure [Orthostatic Lying] Blood Pressure [Orthostatic Sitting] Blood Pressure [Orthostatic Standing] Pulse Oximetry 97 Oxygen Delivery Method 03/26/23 09:40 03/26/23 09:45 03/26/23 09:45 Temperature Pulse Rate 118 H 107 H Pulse Rate [Orthostatic Lying] Pulse Rate [Orthostatic Sitting] Pulse Rate [Orthostatic Standing] Respiratory Rate 17 13 Blood Pressure 131/66 Blood Pressure [Orthostatic Lying] Blood Pressure [Orthostatic Sitting] Blood Pressure [Orthostatic Standing] Pulse Oximetry 98 98 Oxygen Delivery Method 03/26/23 09:50 03/26/23 09:50 03/26/23 09:55 Temperature Pulse Rate 118 H 130 H Pulse Rate [Orthostatic Lying] Pulse Rate [Orthostatic Sitting] Pulse Rate [Orthostatic Standing] Respiratory Rate 12 17 Blood Pressure 118/59 L Blood Pressure [Orthostatic Lying] Blood Pressure [Orthostatic Sitting] Blood Pressure [Orthostatic Standing] Pulse Oximetry 94 96 Oxygen Delivery Method 03/26/23 09:56 03/26/23 09:56 03/26/23 10:00 Temperature Pulse Rate 127 H 124 H Pulse Rate [Orthostatic Lying] Pulse Rate [Orthostatic Sitting] Pulse Rate [Orthostatic Standing] Respiratory Rate 14 14 Blood Pressure 104/58 L Blood Pressure [Orthostatic Lying] Blood Pressure [Orthostatic Sitting] Blood Pressure [Orthostatic Standing] Pulse Oximetry 94 93 Oxygen Delivery Method 03/26/23 10:00 03/26/23 10:05 03/26/23 10:05 Temperature Pulse Rate 122 H Pulse Rate [Orthostatic Lying] Pulse Rate [Orthostatic Sitting] Pulse Rate [Orthostatic Standing] Respiratory Rate 13 Blood Pressure 112/61 120/63 Blood Pressure [Orthostatic Lying] Blood Pressure [Orthostatic Sitting] Blood Pressure [Orthostatic Standing] Pulse Oximetry 93 Oxygen Delivery Method 03/26/23 10:10 03/26/23 10:10 03/26/23 10:15 Temperature Pulse Rate 141 H 120 H Pulse Rate [Orthostatic Lying] Pulse Rate [Orthostatic Sitting] Pulse Rate [Orthostatic Standing] Respiratory Rate 15 17 Blood Pressure 111/61 Blood Pressure [Orthostatic Lying] Blood Pressure [Orthostatic Sitting] Blood Pressure [Orthostatic Standing] Pulse Oximetry 93 93 Oxygen Delivery Method 03/26/23 10:15 03/26/23 10:20 03/26/23 10:20 Temperature Pulse Rate 123 H Pulse Rate [Orthostatic Lying] Pulse Rate [Orthostatic Sitting] Pulse Rate [Orthostatic Standing] Respiratory Rate 13 Blood Pressure 104/56 L 117/66 Blood Pressure [Orthostatic Lying] Blood Pressure [Orthostatic Sitting] Blood Pressure [Orthostatic Standing] Pulse Oximetry 93 Oxygen Delivery Method 03/26/23 10:25 03/26/23 10:26 03/26/23 10:26 Temperature Pulse Rate 143 H 126 H Pulse Rate [Orthostatic Lying] Pulse Rate [Orthostatic Sitting] Pulse Rate [Orthostatic Standing] Respiratory Rate 23 15 Blood Pressure 109/66 Blood Pressure [Orthostatic Lying] Blood Pressure [Orthostatic Sitting] Blood Pressure [Orthostatic Standing] Pulse Oximetry 98 96 Oxygen Delivery Method 03/26/23 10:30 03/26/23 10:30 03/26/23 10:35 Temperature Pulse Rate 134 H 122 H Pulse Rate [Orthostatic Lying] Pulse Rate [Orthostatic Sitting] Pulse Rate [Orthostatic Standing] Respiratory Rate 25 H 17 Blood Pressure 106/59 L Blood Pressure [Orthostatic Lying] Blood Pressure [Orthostatic Sitting] Blood Pressure [Orthostatic Standing] Pulse Oximetry 96 96 Oxygen Delivery Method 03/26/23 10:35 03/26/23 10:40 03/26/23 10:41 Temperature Pulse Rate 134 H 129 H Pulse Rate [Orthostatic Lying] Pulse Rate [Orthostatic Sitting] Pulse Rate [Orthostatic Standing] Respiratory Rate 16 15 Blood Pressure 117/60 Blood Pressure [Orthostatic Lying] Blood Pressure [Orthostatic Sitting] Blood Pressure [Orthostatic Standing] Pulse Oximetry 96 96 Oxygen Delivery Method 03/26/23 10:41 03/26/23 10:45 03/26/23 10:45 Temperature Pulse Rate 144 H Pulse Rate [Orthostatic Lying] Pulse Rate [Orthostatic Sitting] Pulse Rate [Orthostatic Standing] Respiratory Rate 23 Blood Pressure 110/55 L 97/51 L Blood Pressure [Orthostatic Lying] Blood Pressure [Orthostatic Sitting] Blood Pressure [Orthostatic Standing] Pulse Oximetry 97 Oxygen Delivery Method 03/26/23 10:50 03/26/23 10:50 03/26/23 10:55 Temperature Pulse Rate 131 H Pulse Rate [Orthostatic Lying] Pulse Rate [Orthostatic Sitting] Pulse Rate [Orthostatic Standing] Respiratory Rate 15 Blood Pressure 105/55 L 105/62 Blood Pressure [Orthostatic Lying] Blood Pressure [Orthostatic Sitting] Blood Pressure [Orthostatic Standing] Pulse Oximetry 96 Oxygen Delivery Method 03/26/23 10:55 03/26/23 11:00 03/26/23 11:00 Temperature Pulse Rate 115 H 93 H Pulse Rate [Orthostatic Lying] Pulse Rate [Orthostatic Sitting] Pulse Rate [Orthostatic Standing] Respiratory Rate 26 H 13 Blood Pressure 115/68 Blood Pressure [Orthostatic Lying] Blood Pressure [Orthostatic Sitting] Blood Pressure [Orthostatic Standing] Pulse Oximetry 96 96 Oxygen Delivery Method 03/26/23 11:05 03/26/23 11:05 03/26/23 11:10 Temperature Pulse Rate 112 H 130 H Pulse Rate [Orthostatic Lying] Pulse Rate [Orthostatic Sitting] Pulse Rate [Orthostatic Standing] Respiratory Rate 14 15 Blood Pressure 113/56 L Blood Pressure [Orthostatic Lying] Blood Pressure [Orthostatic Sitting] Blood Pressure [Orthostatic Standing] Pulse Oximetry 97 95 Oxygen Delivery Method 03/26/23 11:15 03/26/23 11:15 03/26/23 11:20 Temperature Pulse Rate 114 H 122 H Pulse Rate [Orthostatic Lying] Pulse Rate [Orthostatic Sitting] Pulse Rate [Orthostatic Standing] Respiratory Rate 14 15 Blood Pressure 117/56 L Blood Pressure [Orthostatic Lying] Blood Pressure [Orthostatic Sitting] Blood Pressure [Orthostatic Standing] Pulse Oximetry 96 97 Oxygen Delivery Method 03/26/23 11:20 03/26/23 11:25 03/26/23 11:25 Temperature Pulse Rate 110 H Pulse Rate [Orthostatic Lying] Pulse Rate [Orthostatic Sitting] Pulse Rate [Orthostatic Standing] Respiratory Rate 13 Blood Pressure 105/57 L 108/55 L Blood Pressure [Orthostatic Lying] Blood Pressure [Orthostatic Sitting] Blood Pressure [Orthostatic Standing] Pulse Oximetry 97 Oxygen Delivery Method 03/26/23 11:30 03/26/23 11:30 03/26/23 11:35 Temperature Pulse Rate 108 H Pulse Rate [Orthostatic Lying] Pulse Rate [Orthostatic Sitting] Pulse Rate [Orthostatic Standing] Respiratory Rate 18 Blood Pressure 90/61 113/56 L Blood Pressure [Orthostatic Lying] Blood Pressure [Orthostatic Sitting] Blood Pressure [Orthostatic Standing] Pulse Oximetry 97 Oxygen Delivery Method 03/26/23 11:35 03/26/23 11:40 03/26/23 11:41 Temperature Pulse Rate 112 H 133 H 116 H Pulse Rate [Orthostatic Lying] Pulse Rate [Orthostatic Sitting] Pulse Rate [Orthostatic Standing] Respiratory Rate 13 22 15 Blood Pressure Blood Pressure [Orthostatic Lying] Blood Pressure [Orthostatic Sitting] Blood Pressure [Orthostatic Standing] Pulse Oximetry 97 96 96 Oxygen Delivery Method 03/26/23 11:41 03/26/23 11:45 03/26/23 11:46 Temperature Pulse Rate 111 H Pulse Rate [Orthostatic Lying] Pulse Rate [Orthostatic Sitting] Pulse Rate [Orthostatic Standing] Respiratory Rate 15 Blood Pressure 132/63 104/51 L Blood Pressure [Orthostatic Lying] Blood Pressure [Orthostatic Sitting] Blood Pressure [Orthostatic Standing] Pulse Oximetry 97 Oxygen Delivery Method 03/26/23 11:46 03/26/23 11:50 03/26/23 11:53 Temperature Pulse Rate 107 H 112 H 122 H Pulse Rate [Orthostatic Lying] Pulse Rate [Orthostatic Sitting] Pulse Rate [Orthostatic Standing] Respiratory Rate 23 31 H 31 H Blood Pressure Blood Pressure [Orthostatic Lying] Blood Pressure [Orthostatic Sitting] Blood Pressure [Orthostatic Standing] Pulse Oximetry 96 98 98 Oxygen Delivery Method 03/26/23 11:53 03/26/23 11:55 03/26/23 11:56 Temperature Pulse Rate 110 H 89 Pulse Rate [Orthostatic Lying] Pulse Rate [Orthostatic Sitting] Pulse Rate [Orthostatic Standing] Respiratory Rate 16 20 Blood Pressure 108/62 Blood Pressure [Orthostatic Lying] Blood Pressure [Orthostatic Sitting] Blood Pressure [Orthostatic Standing] Pulse Oximetry 98 98 Oxygen Delivery Method 03/26/23 11:56 03/26/23 11:58 03/26/23 11:58 Temperature Pulse Rate 58 L Pulse Rate [Orthostatic Lying] Pulse Rate [Orthostatic Sitting] Pulse Rate [Orthostatic Standing] Respiratory Rate 50 H Blood Pressure 101/56 L 112/62 Blood Pressure [Orthostatic Lying] Blood Pressure [Orthostatic Sitting] Blood Pressure [Orthostatic Standing] Pulse Oximetry 98 Oxygen Delivery Method 03/26/23 12:02 03/26/23 12:07 03/26/23 12:08 Temperature Pulse Rate 135 H 116 H Pulse Rate [Orthostatic Lying] 117 H Pulse Rate [Orthostatic Sitting] 110 H Pulse Rate [Orthostatic Standing] 112 H Respiratory Rate 27 H 12 Blood Pressure Blood Pressure [Orthostatic Lying] 98/60 Blood Pressure [Orthostatic Sitting] 101/56 L Blood Pressure [Orthostatic Standing] 112/62 Pulse Oximetry 83 L 94 Oxygen Delivery Method 03/26/23 12:08 03/26/23 12:10 03/26/23 12:15 Temperature Pulse Rate 117 H 110 H Pulse Rate [Orthostatic Lying] Pulse Rate [Orthostatic Sitting] Pulse Rate [Orthostatic Standing] Respiratory Rate 19 14 Blood Pressure 113/68 Blood Pressure [Orthostatic Lying] Blood Pressure [Orthostatic Sitting] Blood Pressure [Orthostatic Standing] Pulse Oximetry 75 L 98 Oxygen Delivery Method 03/26/23 12:16 03/26/23 12:16 03/26/23 12:20 Temperature Pulse Rate 117 H 118 H Pulse Rate [Orthostatic Lying] Pulse Rate [Orthostatic Sitting] Pulse Rate [Orthostatic Standing] Respiratory Rate 16 22 Blood Pressure 102/77 Blood Pressure [Orthostatic Lying] Blood Pressure [Orthostatic Sitting] Blood Pressure [Orthostatic Standing] Pulse Oximetry 98 99 Oxygen Delivery Method 03/26/23 12:25 03/26/23 12:30 03/26/23 12:31 Temperature Pulse Rate 91 H 101 H 85 Pulse Rate [Orthostatic Lying] Pulse Rate [Orthostatic Sitting] Pulse Rate [Orthostatic Standing] Respiratory Rate 13 16 12 Blood Pressure Blood Pressure [Orthostatic Lying] Blood Pressure [Orthostatic Sitting] Blood Pressure [Orthostatic Standing] Pulse Oximetry 98 99 100 Oxygen Delivery Method 03/26/23 12:31 03/26/23 12:35 03/26/23 12:40 Temperature Pulse Rate 133 H 121 H Pulse Rate [Orthostatic Lying] Pulse Rate [Orthostatic Sitting] Pulse Rate [Orthostatic Standing] Respiratory Rate 17 24 Blood Pressure 99/55 L Blood Pressure [Orthostatic Lying] Blood Pressure [Orthostatic Sitting] Blood Pressure [Orthostatic Standing] Pulse Oximetry 98 99 Oxygen Delivery Method 03/26/23 12:45 03/26/23 12:45 03/26/23 12:50 Temperature Pulse Rate 103 H 101 H Pulse Rate [Orthostatic Lying] Pulse Rate [Orthostatic Sitting] Pulse Rate [Orthostatic Standing] Respiratory Rate 22 21 Blood Pressure 107/54 L Blood Pressure [Orthostatic Lying] Blood Pressure [Orthostatic Sitting] Blood Pressure [Orthostatic Standing] Pulse Oximetry 99 98 Oxygen Delivery Method 03/26/23 12:55 03/26/23 13:00 03/26/23 13:00 Temperature Pulse Rate 88 105 H Pulse Rate [Orthostatic Lying] Pulse Rate [Orthostatic Sitting] Pulse Rate [Orthostatic Standing] Respiratory Rate 17 22 Blood Pressure 98/66 Blood Pressure [Orthostatic Lying] Blood Pressure [Orthostatic Sitting] Blood Pressure [Orthostatic Standing] Pulse Oximetry 98 98 Oxygen Delivery Method 03/26/23 13:05 03/26/23 13:10 03/26/23 13:15 Temperature Pulse Rate 88 117 H Pulse Rate [Orthostatic Lying] Pulse Rate [Orthostatic Sitting] Pulse Rate [Orthostatic Standing] Respiratory Rate 15 32 H Blood Pressure 94/66 Blood Pressure [Orthostatic Lying] Blood Pressure [Orthostatic Sitting] Blood Pressure [Orthostatic Standing] Pulse Oximetry 99 98 Oxygen Delivery Method 03/26/23 13:15 03/26/23 13:20 03/26/23 13:25 Temperature Pulse Rate 105 H 82 78 Pulse Rate [Orthostatic Lying] Pulse Rate [Orthostatic Sitting] Pulse Rate [Orthostatic Standing] Respiratory Rate 21 21 14 Blood Pressure Blood Pressure [Orthostatic Lying] Blood Pressure [Orthostatic Sitting] Blood Pressure [Orthostatic Standing] Pulse Oximetry 85 L 97 98 Oxygen Delivery Method 03/26/23 13:30 03/26/23 13:31 03/26/23 13:31 Temperature Pulse Rate 105 H 110 H Pulse Rate [Orthostatic Lying] Pulse Rate [Orthostatic Sitting] Pulse Rate [Orthostatic Standing] Respiratory Rate 14 11 L Blood Pressure 100/53 L Blood Pressure [Orthostatic Lying] Blood Pressure [Orthostatic Sitting] Blood Pressure [Orthostatic Standing] Pulse Oximetry 98 98 Oxygen Delivery Method 03/26/23 13:35 03/26/23 13:40 Temperature Pulse Rate 115 H 96 H Pulse Rate [Orthostatic Lying] Pulse Rate [Orthostatic Sitting] Pulse Rate [Orthostatic Standing] Respiratory Rate 19 Blood Pressure Blood Pressure [Orthostatic Lying] Blood Pressure [Orthostatic Sitting] Blood Pressure [Orthostatic Standing] Pulse Oximetry 95 98 Oxygen Delivery Method MDM - Arrhythmia/Palpitations Differential Diagnosis Differential diagnosis: Likely palpitations, artial fibrillation and ventricular premature beats Lab Data 03/26/23 09:00 03/26/23 09:00 Labs: Lab Results 03/26/23 Range/Units 09:00 WBC 5.7 (4.5-11.0) X10^3/uL RBC 4.46 (4.0-5.2) X10^6/uL Hgb 13.3 (12.0-16.0) g/dL Hct 38.8 (36-46) % MCV 87.1 (80-100) fL MCH 29.9 (26-34) PG MCHC 34.3 (30-36) % RDW 13.3 (11.6-14.8) % Plt Count 261 (150-400) X10^3/uL Neut % (Auto) 59.1 (50-75) % Lymph % (Auto) 30.3 (25-40) % [place] % (Auto) 9.1 (3-14) % Eos % (Auto) 1.0 L (2-4) % Baso % (Auto) 0.5 (0-2) % Neut # (Auto) 3400 (1799-8219) /uL Lymph # (Auto) 1700 (4757-3916) /uL [place] # (Auto) 500 (0-900) /uL Eos # (Auto) 100 (0-450) /uL Baso # (Auto) 0 (0-100) /uL PT 14.6 H (9.4-12.5) SECONDS INR 1.3 (0.9-1.3) APTT 38 H (25.1-36.5) SECONDS Sodium 138 (137-145) mmol/L Potassium 3.7 (3.4-5.1) mmol/L Chloride 100 (98-107) mmol/L Carbon Dioxide 30 (22-32) mmol/L BUN 23 H (7-17) mg/dL Creatinine 0.96 (0.52-1.04) mg/dL Estimated GFR > 60 (>60) mL/min BUN/Creatinine Ratio 24.0 H (6-22) Glucose 89 (70-100) mg/dL Calcium 9.4 (8.4-10.2) mg/dL Magnesium 2.1 (1.6-2.3) mg/dL Total Bilirubin 0.9 (0.2-1.3) mg/dL AST 47 H (14-36) IU/L ALT 36 H (<35) IU/L Alkaline Phosphatase 52 (38-126) U/L Total Creatine Kinase 84 (30-135) U/L Troponin I < 0.012 (0.01-0.034) ng/mL Total Protein 8.0 (6.3-8.2) g/dL Albumin 4.5 (3.5-5.0) g/dL Globulin 3.5 (1.7-4.1) g/dL Albumin/Globulin Ratio 1.3 (1.0-2.8) Lipase 181 (23-300) U/L MDM Narrative Medical decision making narrative: Intermittent palpitations and near syncopal episodes. Patient arrived tachycardic, appeared to be sinus rhythm with brief pauses. Placed on environmental monitoring technician, since patient is on metoprolol we will order IV metoprolol to see if this assist in rate control. No change in patient's heart rate with metoprolol 5 mg x 3. Call placed to patient's agricultural produce sorter, who stated that patient has intermittent SVT and is pending cardiology referral. Dr. Rainey reports recent normal echocardiogram, if patient is not tolerating metoprolol then diltiazem may be an option. Patient rate controlled with diltiazem, still having intermittent atrial irritability. Continued on environmental monitoring technician. Attempted to call patient's agricultural produce sorter back, however she is left the office and not able to be reached. Call placed to Dr. Davidson on-call cardiology, who recommended IV fluids, orthostatic vital signs, and continued diltiazem. Patient has been observed for several hours in the emergency department, has received IV fluids. Continues to have episodes of atrial irritability, however these are brief and self resolving. Vital signs stable and patient hemodynamically stable. Orthostatic vital signs are within acceptable limits. Patient given ED referral to electrophysiology and she was counseled to call 1st thing for the next available appointment. She was counseled to change from metoprolol to diltiazem since this appears to have favorable rate control while she has been in the emergency department. Note for work provided. Discharge Plan Departure Patient Disposition: Home Clinical Impression: Atrial dysrhythmia Instructions: DI for Atrial Fibrillation Activity Restrictions/Additional Instructions: STOP YOUR METOPROLOL, CHANGE TO DILTIAZEM Prescriptions: New diltiazem HCl 180 mg capsule,extended release 24 hr 180 mg PO DAILY Qty: 30 0RF No Action hydrocodone-acetaminophen 5-325 mg tablet 1 tab PO Q4-6H PRN (Reason: pain) Qty: 14 0RF lisinopril 10 mg tablet 10 mg PO DAILY Qty: 30 0RF hydrochlorothiazide 25 mg tablet 25 mg PO DAILY Qty: 30 0RF naproxen 500 mg tablet,delayed release (DR/EC) 500 mg PO Q12H PRN (Reason: pain) Qty: 20 0RF cyclobenzaprine 10 mg tablet 10 mg PO TID PRN (Reason: muscle spasm) Qty: 15 0RF Eliquis 5 mg tablet 5 mg PO BID Referrals: Ronnie Canela MD [Physician] - Paco Angel MD [Primary Care Provider] - Iliana Light MD [Physician] - Stand Alone Forms: Patient Portal/API, Work Release Note
[2023-03-26 09:37] LABS: INR 1.3 (0.9-1.3); Prothrombin Time 14.6 SECONDS (9.4-12.5)
[2023-03-26] MEDS: dilTIAZem 5 MG/ML SDV 15 MG IV (09:39)
[2023-03-26 09:40] LABS: Add Manual Diff / Slide Review NO; Basophils Absolute Auto 0 /uL (0-100); Basophils Percent Auto 0.5 % (0-2); Eosinophils Absolute Auto 100 /uL (0-450); Hematocrit 38.8 % (36-46); Hemoglobin 13.3 g/dL (12.0-16.0); Lymphocytes Absolute Auto 1700 /uL (1100-4500); Lymphocytes Percent Auto 30.3 % (25-40); Mean Corpuscular HGB Conc 34.3 % (30-36); Mean Corpuscular Hemoglobin 29.9 PG (26-34); Mean Corpuscular Volume 87.1 fL (80-100); Monocytes Absolute Auto 500 /uL (0-900); Monocytes Percent Auto 9.1 % (3-14); Neutrophils Absolute Auto 3400 /uL (1500-7000); Neutrophils Percent Auto 59.1 % (50-75); PTT Partial Thromboplastin Tim 38 SECONDS (25.1-36.5); Platelet Count 261 X10^3/uL (150-400); Red Blood Cell Count 4.46 X10^6/uL (4.0-5.2); Red Cell Distribution Width 13.3 % (11.6-14.8); White Blood Cell Count 5.7 X10^3/uL (4.5-11.0)
[2023-03-26 09:43] LABS: Alanine Aminotransferase 36 IU/L (<35); Albumin 4.5 g/dL (3.5-5.0); Albumin Globulin Ratio 1.3 (1.0-2.8); Alkaline Phosphatase 52 U/L (38-126); Aspartate Aminotransferase 47 IU/L (14-36); Bilirubin Total 0.9 mg/dL (0.2-1.3); Blood Urea Nitrogen 23 mg/dL (7-17); Calcium 9.4 mg/dL (8.4-10.2); Carbon Dioxide 30 mmol/L (22-32); Chloride 100 mmol/L (98-107); Creatine Kinase 84 U/L (30-135); Estimated Glomerular Filt Rate > 60 mL/min (>60); Globulin 3.5 g/dL (1.7-4.1); Glucose 89 mg/dL (70-100); HEMOLYSIS 21 (0-50); Lipase 181 U/L (23-300); Magnesium 2.1 mg/dL (1.6-2.3); Potassium 3.7 mmol/L (3.4-5.1); Sodium 138 mmol/L (137-145)
[2023-03-26 09:54] LABS: Troponin I < 0.012 ng/mL (0.01-0.034)
[2023-03-26] MEDS: SODIUM CHLORIDE 0.9% 1,000 ML 1000 ML IV (12:04)
== END 2023-03-26 13:47 | disposition home or self-care (01) ==
PROVIDERS: Emergency Provider Emergency Medicine; PCP Family Medicine
DX: I49.8 Other specified cardiac arrhythmias (principal); R07.9 Chest pain, unspecified; Z79.01 Long term (current) use of anticoagulants; Z79.899 Other long term (current) drug therapy
CPT/HCPCS: 36415; 71045; 80053; 82550; 83690; 83735; 84484; 85025; 85610; 85730; 93005; 96361; 96374; 96375; 99284

== ENCOUNTER 2023-05-12 01:08 | Emergency (ER) | payer OTHER, SELFPAY ==
[2022-07-16 14:42] VITALS: BMI 35.9
[2023-05-12] VITALS (11 sets, daily range): BP systolic 120–143; BP diastolic 62–76; PULSE 61–91; RESP 12–32; O2SAT 93–99; BMI 36.7
--- NOTE | 2023-05-12 01:22 | DI.RAD.S_ITS ---
PROCEDURE: XR CHEST 1V INDICATIONS: chest pain TECHNIQUE: One view of the chest was acquired. COMPARISON: [facility], , XR CHEST 1V, 03/26/2023, 9:12. [facility], CR, XR CHEST 1V, 01/25/2023, 17:38. FINDINGS: Surgical changes and devices: None. Lungs and pleura: Lungs are clear. No pleural effusions or pneumothorax. Mediastinum: Mediastinal contours appear normal. Heart size is normal. Bones and chest wall: No suspicious bony lesions. Overlying soft tissues appear unremarkable. IMPRESSION: No acute cardiopulmonary abnormality is seen. Approved by: Lee Roca M.D. on 05/12/2023 at 1:35
--- NOTE | 2023-05-12 01:55 | ED_ITS ---
HPI - Chest Pain General Chief Complaint: Chest Pain Stated Complaint: chest and back pain, Time Seen by Provider: 05/12/23 01:17 Source: patient Mode of arrival: Ambulatory Limitations: no limitations History of Present Illness HPI narrative: 58-year-old female with history of atrial fibrillation on Eliquis, diltiazem presents by private vehicle from home for intermittent squeezing chest and back pain that woke her up from sleep tonight. Intermittent, comes and goes, not seemingly reproducible with touch or massage. Patient took a hydrocodone that she had left over at home but did not relieve her pain. Patient states that her tachycardia and palpitations have been well controlled since switching to diltiazem from metoprolol. Related Data Home Medications Medication Instructions Recorded Confirmed apixaban 5 mg tablet (Eliquis) 5 mg PO BID 01/25/23 01/25/23 Previous Rx's Medication Instructions Recorded cyclobenzaprine 10 mg tablet 10 mg PO TID PRN muscle spasm #15 04/18/19 tabs naproxen 500 mg tablet,delayed 500 mg PO Q12H PRN pain #20 tabs 04/18/19 release hydrocodone 5 mg-acetaminophen 325 1 tab PO Q4-6H PRN pain #14 tabs 05/15/ mg tablet lisinopril 10 mg tablet 10 mg PO DAILY #30 tabs 03/06/21 diltiazem HCl 180 mg capsule,24 180 mg PO DAILY #30 caps 03/26/23 hr,extended release amoxicillin 875 mg-potassium 1 tab PO BID 10 days #20 tabs 05/10/23 clavulanate 125 mg tablet cyclobenzaprine 10 mg tablet 10 mg PO TID PRN muscle spasm #15 05/12/23 tabs Allergies Allergy/AdvReac Type Severity Reaction Status Date / Time morphine [MORPHINE] Allergy Mild ITCH Verified 05/10/23 14:52 oxycodone [From PERCOCET] Allergy Unknown Verified 05/10/23 14:52 Review of Systems Review of Systems Narrative: See HPI Patient History Medical History Hypertension Acute carpal tunnel syndrome of right wrist Lumbar back pain with radiculopathy affecting right lower extremity Surgical History No significant past surgical history Status post surgery (07/18/08) Social History household members: significant other Smoking Status: Never smoker Smoking Status: Never smoker alcohol intake frequency: a few times a week Alcohol type: wine Substance Use Type: does not use Exam Initial Vital Signs Initial Vital Signs: Vital Signs Pulse Rate 71 05/12/23 01:17 Blood Pressure 126/75 05/12/23 01:17 Pulse Oximetry 97 05/12/23 01:17 Const: Awake, alert, no acute distress, nontoxic appearing Cardiac: regular rate, regular rhythm RESP: unlabored, clear bilaterally, no wheezing GI: Soft, nontender, nondistended, no rebound, no guarding MSK: Atraumatic, full range of motion, pulses equal Skin: Warm, Dry, intact, no rashes Neuro: AO x3, CN II-XII grossly intact, moves all extremities Course Orders Ordered: Discontinued Medications Aspirin (Aspirin 81 Mg Chew Tab) 324 mg PO NOW ONE Stop: 05/12/23 01:23 Last Admin: 05/12/23 02:13 Dose: Not Given Documented By: KARLY Diazepam (Diazepam 10 Mg/2 Ml Syringe) 3 mg IV NOW ONE Stop: 05/12/23 01:54 Last Admin: 05/12/23 02:03 Dose: 3 mg Documented By: KARLY Vital Signs Vital signs: Vital Signs - 8 hr 05/12/23 01:17 05/12/23 01:17 05/12/23 01:20 Pulse Rate 71 64 Respiratory Rate 18 Blood Pressure 126/75 126/75 Pulse Oximetry 97 98 Oxygen Delivery Method Room Air 05/12/23 01:26 05/12/23 01:26 05/12/23 01:30 Pulse Rate 63 62 Respiratory Rate 21 14 Blood Pressure 143/69 H Pulse Oximetry 98 96 Oxygen Delivery Method 05/12/23 01:30 05/12/23 02:00 05/12/23 02:00 Pulse Rate 65 Respiratory Rate 20 Blood Pressure 126/63 120/62 Pulse Oximetry 93 Oxygen Delivery Method 05/12/23 02:30 05/12/23 03:00 05/12/23 03:31 Pulse Rate 61 65 91 H Respiratory Rate 12 32 H 28 H Blood Pressure Pulse Oximetry 95 97 Oxygen Delivery Method MDM - Chest Pain Differential Diagnosis Differential diagnosis: Likely fracture of rib, pneumothorax and stable angina Lab Data 05/12/23 02:10 05/12/23 02:10 Labs: Lab Results 05/12/23 Range/Units 02:10 WBC 5.9 (4.5-11.0) X10^3/uL RBC 4.20 (4.0-5.2) X10^6/uL Hgb 12.3 (12.0-16.0) g/dL Hct 36.5 (36-46) % MCV 87.1 (80-100) fL MCH 29.3 (26-34) PG MCHC 33.7 (30-36) % RDW 13.5 (11.6-14.8) % Plt Count 193 (150-400) X10^3/uL Neut % (Auto) 66.0 (50-75) % Lymph % (Auto) 24.1 L (25-40) % [place] % (Auto) 7.4 (3-14) % Eos % (Auto) 1.8 L (2-4) % Baso % (Auto) 0.7 (0-2) % Neut # (Auto) 3900 (6621-8065) /uL Lymph # (Auto) 1400 (3408-9319) /uL [place] # (Auto) 400 (0-900) /uL Eos # (Auto) 100 (0-450) /uL Baso # (Auto) 0 (0-100) /uL PT 14.4 H (9.4-12.5) SECONDS INR 1.3 (0.9-1.3) APTT 45 H (25.1-36.5) SECONDS D-Dimer 1217 H (<500) ng/ml Sodium 139 (137-145) mmol/L Potassium 4.0 (3.4-5.1) mmol/L Chloride 109 H (98-107) mmol/L Carbon Dioxide 26 (22-32) mmol/L BUN 19 H (7-17) mg/dL Creatinine 0.83 (0.52-1.04) mg/dL Estimated GFR > 60 (>60) mL/min BUN/Creatinine Ratio 22.9 H (6-22) Glucose 114 H (70-100) mg/dL Calcium 8.8 (8.4-10.2) mg/dL Magnesium 2.0 (1.6-2.3) mg/dL Total Bilirubin 0.5 (0.2-1.3) mg/dL AST 69 H (14-36) IU/L ALT 47 H (<35) IU/L Alkaline Phosphatase 55 (38-126) U/L Total Creatine Kinase 109 (30-135) U/L Troponin I < 0.012 (0.01-0.034) ng/mL Total Protein 7.4 (6.3-8.2) g/dL Albumin 4.2 (3.5-5.0) g/dL Globulin 3.2 (1.7-4.1) g/dL Albumin/Globulin Ratio 1.3 (1.0-2.8) Lipase 161 (23-300) U/L Imaging Data Chest x-ray: Radiologist's Impression: PROCEDURE: XR CHEST 1V INDICATIONS: chest pain TECHNIQUE: One view of the chest was acquired. COMPARISON: [facility], CR, XR CHEST 1V, 03/26/2023, 9:12. [facility], CR, XR CHEST 1V, 01/25/2023, 17:38. FINDINGS: Surgical changes and devices: None. Lungs and pleura: Lungs are clear. No pleural effusions or pneumothorax. Mediastinum: Mediastinal contours appear normal. Heart size is normal. Bones and chest wall: No suspicious bony lesions. Overlying soft tissues appear unremarkable. IMPRESSION: No acute cardiopulmonary abnormality is seen. Approved by: Lee Roca M.D. on 05/12/2023 at 1:35 CT scan - chest: Radiologist's Impression: PROCEDURE: CT ANGIO CHEST INDICATIONS: CHEST TO BACK PAIN, ELEVATED DIMER TECHNIQUE: After the administration of intravenous contrast, 2 mm thick sections acquired from the pulmonary apices to the posterior costophrenic angles. 3-dimensional maximum intensity projection (MIP) coronal and sagittal reformats were then acquired through the thorax. For radiation dose reduction, the following was used: automated exposure control, adjustment of mA and/or kV according to patient size. COMPARISON: [facility], CT, CT ANGIO CHEST PE PROTOCOL, 07/17/2022, 10:10. FINDINGS: 0. Image quality: Diagnostic. Pulmonary arteries: Enhancement of the pulmonary artery is adequate. No acute pulmonary embolism to the level of the segmental pulmonary arteries. Main pulmonary artery is normal in caliber. Lower Neck: No enlarged lymph nodes. Thyroid: No thyroid nodules which require sonographic follow up, per consensus guidelines. Axillae: No enlarged lymph nodes. Chest Wall: Fat containing left-sided Bochdalek hernia (9/122). Bones: No acute fractures. No aggressive appearing lytic or blastic osseous lesions. Mild multilevel degenerative changes of the spine. Lungs and Pleura: No pneumothorax or pleural effusions. Stable right lower lobe solid pulmonary nodule measuring 5 mm (7/190) since 2012, benign. Stable left apical solid pulmonary nodule measuring 3 mm (7/41). No new or enlarging solid pulmonary nodules or consolidation. Dependent atelectasis. Patent central airways. Heart: Heart size is borderline enlarged. No pericardial effusion. Mild LAD coronary vessel calcifications. Thoracic Vessels: No aortic aneurysm. Mediastinum and Rajwinder: No enlarged lymph nodes. Esophagus: No wall thickening. Small hiatal hernia. Upper Abdomen: Cholecystectomy. Extrahepatic biliary ductal dilatation measuring 1.2 cm, most compatible with post cholecystectomy reservoir effect. IMPRESSION: 1. No acute pulmonary embolism to the level of the segmental pulmonary arteries. 2. Two pulmonary nodules measuring up to 5 mm which are stable in size , the largest of which is stable since July 17, 2022. Fleischner guidelines: If patient is high risk, consider a repeat CT chest to document 12 month stability. 3. Mild LAD coronary vessel calcifications. I agree with the preliminary report. Dictated by: Daniel Taylor M.D. on 05/12/2023 at 8:01 Approved by: Daniel Taylor M.D. on 05/12/2023 at 8:41 ECG Data Interpretation: normal sinus rhythm, normal axis, no ST-T wave changes MDM Narrative Medical decision making narrative: Well-appearing patient with waxing and waning chest and back pain. Not reproducible to palpation. Patient does have history AFib and is on Eliquis. EKG is sinus rhythm without obvious concerning ischemic findings. Pain improved with Valium. Troponin is undetectable, however there is elevation in D-dimer beyond patient's age adjusted expected value. Shared decision-making with the patient, she states that she would like a CT angio to assess her aorta and chest. CT angio shows no aneurysm or other acute abnormalities. Patient has 2 incidental pulmonary nodules that are stable from previous. Patient is not a smoker and has never been a smoker, she is otherwise low risk for these nodules. Patient informed of all lab and imaging findings, recommended close follow up with her primary care doctor and her outside sales professional if she continues to experience symptoms, however with a normal workup including labs and CT imaging I believe her symptoms are more in line with a musculoskeletal etiology. ED return precautions discussed at bedside. Patient expressed understanding of the plan and is in agreement at this time. All questions answered at the time of discharge. Discharge Plan Departure Patient Disposition: Home Clinical Impression: Chest pain, Back pain Instructions: DI for Chest Pain Activity Restrictions/Additional Instructions: Take Tylenol as needed for pain. Use your muscle relaxers at home as needed for the back pain as this may be related to your muscles. Follow up with your primary care physician in your outside sales professional if you continue to experience symptoms. Prescriptions: New cyclobenzaprine 10 mg tablet 10 mg PO TID PRN (Reason: muscle spasm) Qty: 15 0RF No Action amoxicillin-pot clavulanate 875-125 mg tablet 1 tab PO BID 10 Days Qty: 20 0RF hydrocodone-acetaminophen 5-325 mg tablet 1 tab PO Q4-6H PRN (Reason: pain) Qty: 14 0RF lisinopril 10 mg tablet 10 mg PO DAILY Qty: 30 0RF naproxen 500 mg tablet,delayed release (DR/EC) 500 mg PO Q12H PRN (Reason: pain) Qty: 20 0RF cyclobenzaprine 10 mg tablet 10 mg PO TID PRN (Reason: muscle spasm) Qty: 15 0RF Eliquis 5 mg tablet 5 mg PO BID diltiazem HCl 180 mg capsule,extended release 24 hr 180 mg PO DAILY Qty: 30 0RF Referrals: Paco Angel MD [Primary Care Provider] - Stand Alone Forms: Patient Portal/API
[2023-05-12] MEDS: diazePAM 10 MG/2 ML SYRINGE 3 MG IV (02:03)
[2023-05-12 02:21] LABS: Add Manual Diff / Slide Review NO; Basophils Absolute Auto 0 /uL (0-100); Basophils Percent Auto 0.7 % (0-2); Eosinophils Absolute Auto 100 /uL (0-450); Eosinophils Percent Auto 1.8 % (2-4); Hematocrit 36.5 % (36-46); Hemoglobin 12.3 g/dL (12.0-16.0); Lymphocytes Absolute Auto 1400 /uL (1100-4500); Lymphocytes Percent Auto 24.1 % (25-40); Mean Corpuscular HGB Conc 33.7 % (30-36); Mean Corpuscular Hemoglobin 29.3 PG (26-34); Mean Corpuscular Volume 87.1 fL (80-100); Monocytes Absolute Auto 400 /uL (0-900); Monocytes Percent Auto 7.4 % (3-14); Neutrophils Absolute Auto 3900 /uL (1500-7000); Platelet Count 193 X10^3/uL (150-400); Red Cell Distribution Width 13.5 % (11.6-14.8); White Blood Cell Count 5.9 X10^3/uL (4.5-11.0)
[2023-05-12 02:33] LABS: INR 1.3 (0.9-1.3); Prothrombin Time 14.4 SECONDS (9.4-12.5)
[2023-05-12 02:35] LABS: PTT Partial Thromboplastin Tim 45 SECONDS (25.1-36.5)
[2023-05-12 02:37] LABS: Alanine Aminotransferase 47 IU/L (<35); Albumin 4.2 g/dL (3.5-5.0); Albumin Globulin Ratio 1.3 (1.0-2.8); Alkaline Phosphatase 55 U/L (38-126); Aspartate Aminotransferase 69 IU/L (14-36); BUN Creatinine Ratio 22.9 (6-22); Bilirubin Total 0.5 mg/dL (0.2-1.3); Blood Urea Nitrogen 19 mg/dL (7-17); Calcium 8.8 mg/dL (8.4-10.2); Carbon Dioxide 26 mmol/L (22-32); Chloride 109 mmol/L (98-107); Creatine Kinase 109 U/L (30-135); Estimated Glomerular Filt Rate > 60 mL/min (>60); Globulin 3.2 g/dL (1.7-4.1); Glucose 114 mg/dL (70-100); HEMOLYSIS < 15 (0-50); Lipase 161 U/L (23-300); Sodium 139 mmol/L (137-145); Total Protein 7.4 g/dL (6.3-8.2)
[2023-05-12 02:43] LABS: D Dimer 1217 ng/ml (<500)
[2023-05-12 02:48] LABS: Troponin I < 0.012 ng/mL (0.01-0.034)
--- NOTE | 2023-05-12 03:08 | DI.CT.S_ITS ---
PROCEDURE: CT ANGIO CHEST INDICATIONS: CHEST TO BACK PAIN, ELEVATED DIMER TECHNIQUE: After the administration of intravenous contrast, 2 mm thick sections acquired from the pulmonary apices to the posterior costophrenic angles. 3-dimensional maximum intensity projection (MIP) coronal and sagittal reformats were then acquired through the thorax. For radiation dose reduction, the following was used: automated exposure control, adjustment of mA and/or kV according to patient size. COMPARISON: [facility], CT, CT ANGIO CHEST PE PROTOCOL, 07/17/2022, 10:10. FINDINGS: 0. Image quality: Diagnostic. Pulmonary arteries: Enhancement of the pulmonary artery is adequate. No acute pulmonary embolism to the level of the segmental pulmonary arteries. Main pulmonary artery is normal in caliber. Lower Neck: No enlarged lymph nodes. Thyroid: No thyroid nodules which require sonographic follow up, per consensus guidelines. Axillae: No enlarged lymph nodes. Chest Wall: Fat containing left-sided Bochdalek hernia (9/122). Bones: No acute fractures. No aggressive appearing lytic or blastic osseous lesions. Mild multilevel degenerative changes of the spine. Lungs and Pleura: No pneumothorax or pleural effusions. Stable right lower lobe solid pulmonary nodule measuring 5 mm (7/190) since 2012, benign. Stable left apical solid pulmonary nodule measuring 3 mm (7/41). No new or enlarging solid pulmonary nodules or consolidation. Dependent atelectasis. Patent central airways. Heart: Heart size is borderline enlarged. No pericardial effusion. Mild LAD coronary vessel calcifications. Thoracic Vessels: No aortic aneurysm. Mediastinum and Rajwinder: No enlarged lymph nodes. Esophagus: No wall thickening. Small hiatal hernia. Upper Abdomen: Cholecystectomy. Extrahepatic biliary ductal dilatation measuring 1.2 cm, most compatible with post cholecystectomy reservoir effect. IMPRESSION: 1. No acute pulmonary embolism to the level of the segmental pulmonary arteries. 2. Two pulmonary nodules measuring up to 5 mm which are stable in size , the largest of which is stable since July 17, 2022. Fleischner guidelines: If patient is high risk, consider a repeat CT chest to document 12 month stability. 3. Mild LAD coronary vessel calcifications. I agree with the preliminary report. Dictated by: Daniel Taylor M.D. on 05/12/2023 at 8:01 Approved by: Daniel Taylor M.D. on 05/12/2023 at 8:41
== END 2023-05-12 04:44 | disposition home or self-care (01) ==
PROVIDERS: Emergency Provider Emergency Medicine; PCP Family Medicine
DX: R07.9 Chest pain, unspecified (principal); M54.9 Dorsalgia, unspecified; Z79.01 Long term (current) use of anticoagulants
CPT/HCPCS: 36415; 71045; 71275; 80053; 82550; 83690; 83735; 84484; 85025; 85379; 85610; 85730; 93005; 93010; 96374; 99284; J3360; Q9967

== ENCOUNTER → 2024-02-29 09:29 | Outpatient (CLI) | payer OTHER, SELFPAY ==
[2022-07-16 14:42] VITALS: BMI 35.9
--- NOTE | 2024-02-29 09:31 | DI.RAD.S_ITS ---
PROCEDURE: XR CHEST 2V INDICATIONS: SOB/cough TECHNIQUE: 2 views of the chest were acquired. COMPARISON: [facility], CR, XR CHEST 1V, 05/12/2023, 1:22. [facility], CR, XR CHEST 1V, 03/26/2023, 9:12. FINDINGS: Surgical changes and devices: None. Lungs and pleura: Low lung volumes. No dense airspace disease. No pleural effusions. There is [id number] peribronchial thickening. Mediastinum: Heart size is normal and unchanged. Bones and chest wall: Unremarkable IMPRESSION: [id number] peribronchial thickening likely atypical/viral infection. There is no airspace consolidation or pleural effusions. Dictated by: Bhavik Up M.D. on 02/29/2024 at 8:59 Approved by: Bhavik Up M.D. on 02/29/2024 at 9:00
== END ==
PROVIDERS: PCP Family Medicine; Referring Provider Physician Assistant Medical; Visit Provider Physician Assistant Medical
DX: R06.02 Shortness of breath (principal)
CPT/HCPCS: 71046

== ENCOUNTER 2024-08-16 14:30 | Emergency (ER) | payer OTHER, SELFPAY ==
[2022-07-16 14:42] VITALS: BMI 35.9
[2024-08-16 14:33] VITALS: BP 143/73; PULSE 56; RESP 17; TEMP 36.1; O2SAT 100; BMI 34.8
--- NOTE | 2024-08-16 14:38 | DI.RAD.S_ITS ---
PROCEDURE: XR CHEST 1V INDICATIONS: Chest Pain TECHNIQUE: One view of the chest was acquired. COMPARISON: [facility], CR, XR CHEST 2V, 02/29/2024, 9:37. [facility], CR, XR CHEST 1V, 05/12/2023, 1:22. FINDINGS: Surgical changes and devices: None. Lungs and pleura: Lungs are clear. No pleural effusions or pneumothorax. Mediastinum: Mediastinal contours appear normal. Heart size is normal. Bones and chest wall: No suspicious bony lesions. Overlying soft tissues appear unremarkable. IMPRESSION: No acute cardiopulmonary abnormality is seen. Dictated by: Sandor Esteban M.D. on 08/16/2024 at 14:58 Approved by: Sandor Esteban M.D. on 08/16/2024 at 14:59
--- NOTE | 2024-08-16 14:44 | EKG_ITS ---
[place] [id number] [place] [id number] Test Date: 2024-08-16 Pat Name: Akua Khalil Department: [facility] Room: Gender: Female [employer]: NAIF : 1965 Requested By: Order Number: [id number] Reading MD: Kentrell Allison MD Measurements Intervals Eleanor Rate: 73 P: 30 VT: 132 QRS: 25 QRSD: 86 T: 5 QT: 404 QTc: 445 Interpretive Statements Sinus rhythm with premature atrial complexes with aberrant conduction Low voltage QRS Electronically Signed On 08-16-2024 15:01:15 PDT by Kentrell Allison MD
[2024-08-16 15:18] LABS: INR 1.2 (0.9-1.3); Prothrombin Time 13.5 SECONDS (9.4-12.5)
[2024-08-16 15:19] LABS: Add Manual Diff / Slide Review NO; Basophils Absolute Auto 0 /uL (0-100); Eosinophils Absolute Auto 100 /uL (0-450); Eosinophils Percent Auto 1.5 % (2-4); Hematocrit 40.6 % (36-46); Hemoglobin 13.6 g/dL (12.0-16.0); Lymphocytes Absolute Auto 1400 /uL (1100-4500); Lymphocytes Percent Auto 31.4 % (25-40); Mean Corpuscular HGB Conc 33.4 % (30-36); Mean Corpuscular Hemoglobin 29.4 PG (26-34); Mean Corpuscular Volume 87.8 fL (80-100); Monocytes Absolute Auto 400 /uL (0-900); Monocytes Percent Auto 9.2 % (3-14); Neutrophils Absolute Auto 2500 /uL (1500-7000); Neutrophils Percent Auto 56.9 % (50-75); Platelet Count 238 X10^3/uL (150-400); Red Blood Cell Count 4.63 X10^6/uL (4.0-5.2); Red Cell Distribution Width 13.2 % (11.6-14.8); White Blood Cell Count 4.4 X10^3/uL (4.5-11.0)
[2024-08-16 15:21] LABS: PTT Partial Thromboplastin Tim 44 SECONDS (25.1-36.5)
[2024-08-16 15:23] LABS: Alanine Aminotransferase 27 IU/L (<35); Albumin 4.8 g/dL (3.5-5.0); Albumin Globulin Ratio 1.3 (1.0-2.8); Alkaline Phosphatase 71 U/L (38-126); Aspartate Aminotransferase 30 IU/L (14-36); BUN Creatinine Ratio 16.3 (6-22); Bilirubin Total 0.6 mg/dL (0.2-1.3); Blood Urea Nitrogen 13 mg/dL (7-17); Calcium 9.4 mg/dL (8.4-10.2); Carbon Dioxide 30 mmol/L (22-32); Chloride 104 mmol/L (98-107); Creatine Kinase 82 U/L (30-135); Estimated Glomerular Filt Rate > 60 mL/min (>60); Globulin 3.6 g/dL (1.7-4.1); Glucose 108 mg/dL (70-99); HEMOLYSIS < 15 (0-50); Lipase 149 U/L (23-300); Magnesium 2.1 mg/dL (1.6-2.3); Potassium 4.3 mmol/L (3.4-5.1); Sodium 142 mmol/L (137-145); Total Protein 8.4 g/dL (6.3-8.2)
[2024-08-16 15:35] LABS: NT-proBNP (BNP-Adult 18+) 49 pg/mL (<125); Troponin I < 0.012 ng/mL (0.01-0.034)
== END 2024-08-16 19:49 | disposition left against medical advice (07) ==
PROVIDERS: Student in an Organized Health Care Education/Training Program; Emergency Provider Emergency Medicine; PCP Family Medicine
DX: I48.91 Unspecified atrial fibrillation (principal)
CPT/HCPCS: 71045; 80053; 82550; 83690; 83735; 83880; 84484; 85025; 85610; 85730; 93005; 99281

== ENCOUNTER → 2024-08-30 08:40 | Outpatient (CLI) | payer OTHER, SELFPAY ==
[2022-07-16 14:42] VITALS: BMI 35.9
--- NOTE | 2024-08-30 08:41 | DI.CT.S_ITS ---
PROCEDURE: CT CHEST WO CON INDICATIONS: PULMONARY NODULE TECHNIQUE: Noncontrast 5 mm thick sections acquired from the pulmonary apices to the posterior costophrenic angles. 1 mm lung window, 5 mm thick coronal and sagittal and 7 mm axial MIP reformats were then acquired. For radiation dose reduction, the following was used: automated exposure control, adjustment of mA and/or kV according to patient size. COMPARISON: [facility], CT, CT ANGIO CHEST PE PROTOCOL, 07/17/2022, 10:10. [facility], CT, CT ANGIO CHEST, 05/12/2023, 2:34. FINDINGS: Image quality: Diagnostic. Lower Neck: No enlarged lymph nodes. Thyroid: No thyroid nodules which require sonographic follow up, per consensus guidelines. Axillae: No enlarged lymph nodes. Chest Wall: Unremarkable. Bones: No suspicious osseous lesion. Lungs and Pleura: No pneumothorax or pleural effusions. Mild emphysematous change. No acute airspace opacity. Central airways are clear. -Right lower lobe pulmonary nodule measuring 0.5 cm, (3/176). -Left apex pulmonary nodule measuring 0.3 cm, (3/35). No new or enlarging pulmonary nodules. Heart: Heart size is normal. No significant coronary artery calcifications. Mild aortic valvular calcification. No pericardial effusion. Thoracic Vessels: The aorta and pulmonary arteries demonstrate normal size. Mediastinum and Rajwinder: No enlarged lymph nodes. Esophagus: No wall thickening. No hiatal hernia. Fat containing left Bochdalek hernia. Upper Abdomen: Visualized upper abdomen solid organs and bowel loops appear normal. Gallbladder is surgically absent. IMPRESSION: 1. No new or enlarging pulmonary nodules. Small pulmonary nodules measuring 0.5 cm or less are unchanged since 2022 suggesting a benign etiology. Lung Rads-2. -Recommend lung cancer screening chest CT in 12 months. 2. No acute airspace opacity. No adenopathy. Dictated by: Tanner Lamar M.D. on 08/30/2024 at 9:51 Approved by: Tanner Lamar M.D. on 08/30/2024 at 10:05
== END ==
PROVIDERS: PCP Family Medicine; Referring Provider Family Medicine; Visit Provider Family Medicine
DX: R91.1 Solitary pulmonary nodule (principal); I25.10 Atherosclerotic heart disease of native coronary artery without angina pectoris; I70.0 Atherosclerosis of aorta; Z90.49 Acquired absence of other specified parts of digestive tract
CPT/HCPCS: 71250

== ENCOUNTER → 2024-09-10 13:16 | Outpatient (CLI) | payer OTHER, SELFPAY ==
[2022-07-16 14:42] VITALS: BMI 35.9
--- NOTE | 2024-09-10 13:17 | DI.US.S_ITS ---
MM diagnostic mammo BI, US breast LT limited: 09/10/2024 BI-RADS: 2 CLINICAL: 59-year old female for bilateral diagnostic mammogram and left diagnostic breast ultrasound. Tyrer-Cuzick lifetime risk of 12.1%. No personal or first- degree family history of breast cancer. Current reported family history of breast cancer: maternal aunt. The patient reports intermittent bilateral diffuse burning breast pain for the past month. PRIOR EXAMS 06/02/2017, 03/15/2016. MAMMOGRAPHY TECHNIQUE: 2D and 3D (tomosynthesis) digital mammographic views obtained, with additional images as needed for full coverage. Current study was also evaluated with a Computer Aided Detection (CAD) system. ULTRASOUND TECHNIQUE TARGETED Left Breast Ultrasound: Real-time ultrasound exam was performed focused to area of clinical and/or imaging concern. Real-time dc scale and color doppler imaging of the area of clinical interest was performed with image documentation. DENSITY C. The breasts are heterogeneously dense, which may obscure small masses. MAMMOGRAPHY FINDINGS Right: There is a benign appearing mass in the right breast which has decreased in size compared to 06/02/2017. There are no suspicious masses, calcifications, or other findings in the breast. Left: Upper Outer Quadrant, Middle depth: There are three circumscribed, oval masses present. The largest oval mass measures approximately 2.3 cm. ULTRASOUND FINDINGS Left: Upper at 12:00, 5.0 cm from nipple, measuring 2.1 x 1 x 1.9 cm: There is a simple anechoic cyst. Left: Upper Outer at 12:30, 5 cm from nipple, measuring 0.9 x 0.7 x 1 cm: There is a simple anechoic cyst. Left: Upper Outer at 1:00, 5.0 cm from nipple, measuring 0.9 x 0.6 x 1 cm: There is a simple anechoic cyst. IMPRESSION: * No evidence of malignancy with benign findings. RECOMMENDATIONS Bilateral * Annual screening mammography. COMMENTS: Findings and recommendations were conveyed to the patient during today's evaluation. OVERALL ASSESSMENT CATEGORY BI-RADS-2: Benign. The [employer] recommends annual screening mammography beginning at age 40 for women with average risk of breast cancer. ELECTRONICALLY SIGNED: Macrina Taylor M.D. on 09/10/2024 at 04:51:59 PM PT Interpreting Station ID: [id number]
== END ==
LOC: MAMMO 13:16
PROVIDERS: PCP Family Medicine; Referring Provider Family Medicine; Visit Provider Family Medicine
DX: N64.4 Mastodynia (principal); N60.02 Solitary cyst of left breast; N63.10 Unspecified lump in the right breast, unspecified quadrant; Z80.3 Family history of malignant neoplasm of breast; R92.333 Mammographic heterogeneous density, bilateral breasts
CPT/HCPCS: 76642; 77066; G0279

== ENCOUNTER 2024-10-08 21:44 | Emergency (ER) | payer OTHER, SELFPAY ==
[2022-07-16 14:42] VITALS: BMI 35.9
--- NOTE | 2024-10-08 21:59 | EKG_ITS ---
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
[2024-10-08 22:01] VITALS: BP 143/72; PULSE 65; RESP 16; TEMP 36.6; O2SAT 98; BMI 34.1
--- NOTE | 2024-10-08 22:13 | DI.RAD.S_ITS ---
PROCEDURE: XR CHEST 1V INDICATIONS: Chest Pain TECHNIQUE: One view of the chest was acquired. COMPARISON: [facility], CR, XR CHEST 1V, 08/16/2024, 14:41. [facility], CR, XR CHEST 2V, 02/29/2024, 9:37. FINDINGS: Surgical changes and devices: None. Lungs and pleura: Lungs are clear. No pleural effusions or pneumothorax. Mediastinum: Mediastinal contours appear normal. Heart size is normal. Bones and chest wall: No suspicious bony lesions. Overlying soft tissues appear unremarkable. IMPRESSION: No acute cardiopulmonary abnormality is seen. Dictated by: Sandor Esteban M.D. on 10/09/2024 at 0:07 Approved by: Sandor Esteban M.D. on 10/09/2024 at 0:07
[2024-10-08 22:36] LABS: Add Manual Diff / Slide Review NO; Hematocrit 38.3 % (36-46); Hemoglobin 13.0 g/dL (12.0-16.0); Lymphocytes Absolute Auto 2000 /uL (1100-4500); Mean Corpuscular HGB Conc 33.8 % (30-36); Mean Corpuscular Hemoglobin 29.2 PG (26-34); Mean Corpuscular Volume 86.5 fL (80-100); Platelet Count 219 X10^3/uL (150-400)
[2024-10-08 22:38] LABS: PTT Partial Thromboplastin Tim 40 SECONDS (25.1-36.5)
[2024-10-08 22:43] LABS: Alanine Aminotransferase 33 IU/L (<35); Albumin 4.7 g/dL (3.5-5.0); Albumin Globulin Ratio 1.4 (1.0-2.8); Alkaline Phosphatase 70 U/L (38-126); Blood Urea Nitrogen 14 mg/dL (7-17); Calcium 9.2 mg/dL (8.4-10.2); Carbon Dioxide 27 mmol/L (22-32); Chloride 104 mmol/L (98-107); Creatine Kinase 63 U/L (30-135); Estimated Glomerular Filt Rate > 60 mL/min (>60); Globulin 3.3 g/dL (1.7-4.1); Glucose 109 mg/dL (70-99); HEMOLYSIS < 15 (0-50); Lipase 135 U/L (23-300); Magnesium 2.0 mg/dL (1.6-2.3); Potassium 3.8 mmol/L (3.4-5.1); Sodium 140 mmol/L (137-145); Total Protein 8.0 g/dL (6.3-8.2)
[2024-10-08 22:52] LABS: INR 1.3 (0.9-1.3); Prothrombin Time 14.7 SECONDS (9.4-12.5)
[2024-10-08 22:54] LABS: NT-proBNP (BNP-Adult 18+) 23 pg/mL (<125); Troponin I < 0.012 ng/mL (0.01-0.034)
--- NOTE | 2024-10-08 23:27 | PC.NURSE ---
Pt indicated she would be waiting in car, pt called on phone but no answer. Security sent to parking lot to look for pt.
[2024-10-09 00:04] VITALS: BP 141/73; PULSE 61; O2SAT 96
--- NOTE | 2024-10-09 00:59 | ED_ITS ---
HPI - Weakness General Chief complaint: Weakness Stated complaint: Weight on chest, bloody noses, weakness Time Seen by Provider: 10/09/24 00:54 Source: patient Mode of arrival: Ambulatory History of Present Illness HPI Narrative: 59-year-old female patient with a history of hypertension and atrial fibrillation who presents with leg weakness for 3 days when she tries to stand up. She also has right facial numbness and right ear burning starting this afternoon at 2:00 p.m. but now resolved. She had a nosebleed briefly earlier this afternoon. Also has had squeezing pain in her chest for quite some time which cardiology told her it was esophageal. Related Data Home Medications ?Medication ?Instructions ?Recorded ?Confirmed apixaban 5 mg tablet (Eliquis) 5 mg PO BID 01/25/23 Previous Rx's ?Medication ?Instructions ?Recorded cyclobenzaprine 10 mg tablet 10 mg PO TID PRN muscle s pasm #15 04/18/19 tabs naproxen 500 mg tablet,delayed 500 mg PO Q12H PRN pain #20 tabs 04/18/19 release hydrocodone 5 mg-acetaminophen 325 1 tab PO Q4-6H PRN pain #14 tabs 05/15/ mg tablet lisinopril 10 mg tablet 10 mg PO DAILY #30 tabs /06/22 diltiazem HCl 180 mg capsule,24 180 mg PO DAILY #30 ca ps 03/26/23 hr,extended release cyclobenzaprine 10 mg tablet 10 mg PO TID PRN muscle s pasm #15 05/12/23 tabs Allergies Allergy/AdvReac Type Severity Reaction Status Date / Time morphine (MORPHINE) Allergy Mild Swelling Verified 08/16/24 14:33 of Lip/Tongue/Throat oxycodone (From PERCOCET) Allergy Unknown unknown Verified 08/16/24 14:33 Review of Systems Review of Systems ROS Unobtainable: All systems reviewed & are unremarkable except as noted in HPI and below Cardiovascular Cardiovascular: Reports as per HPI Gastrointestinal Gastrointestinal: Reports as per HPI Neurologic Neurologic: Reports as per HPI Patient History Medical History Hypertension Acute carpal tunnel syndrome of right wrist Lumbar back pain with radiculopathy affecting right lower extremity Surgical History No significant past surgical history Status post surgery (07/18/08) Social History household members: significant other Smoking Status: Never smoker alcohol intake frequency: a few times a week Alcohol type: wine Exam Narrative Exam Narrative: General: Alert and conversant. No distress. Appears well nourished and well hydrated Craniofacial: No evidence of trauma. Nontender and no swelling. Eyes: PERRLA EOMI conjunctiva clear HEENT: Tragus, pinnae nontender. Tympanic membranes normal appearance. Oropharynx clear with no swelling, exudate or asymmetry of the pharynx. Nares clear. No sinus tenderness Neck: No tenderness or adenopathy. No meningismus. No JVD Lungs: Clear to auscultation with good air movement. No wheezing, rales or rhonchi. No respiratory distress Cardiac: Regular rate and rhythm with no appreciable murmur or gallop Abdomen: Soft, nontender with no distention or masses. Normal bowel sounds. No rebound or guarding Musculoskeletal: Exam of the extremities, axial spine and ribcage reveals no deformity, bony tenderness or swelling. Range of motion intact Neuro: Alert and oriented. Cranial nerves, motor, sensory and cerebellar all grossly intact. No focal deficit Skin: Warm and normal color. No rashes Psychological: Normal affect and interaction. No evidence of delusion or psychosis. Normal mood. Initial Vital Signs Initial Vital Signs: Vital Signs Temperature 97.8 F 10/08/24 22:01 Pulse Rate 65 10/08/24 22:01 Respiratory Rate 16 10/08/24 22:01 Blood Pressure 143/72 H 10/08/24 22:01 Pulse Oximetry 98 10/08/24 22:01 Oxygen Delivery Method Room Air 10/08/24 22:01 Course Orders Ordered: ED Orders 10/08/24 21:55 EKG-12 Lead Stat 10/08/24 22:13 XR chest 1V Stat 10/08/24 22:20 Complete Blood Count AUTO DIFF Stat Comprehensive Metabolic Panel Stat Lipase Stat Magnesium Stat NT-proBNP (BNP-Adult 18+) Stat PTT Partial Thromboplastin [place] Stat Prothrombin Time INR Stat Troponin & CK Cardiac Panel Stat Vital Signs Vital signs: Vital Signs - 8 hr 10/08/24 22:01 10/09/24 00:04 10/09/24 00:04 Temperature 97.8 F Pulse Rate 65 61 Respiratory Rate 16 Blood Pressure 143/72 H 141/73 H Pulse Oximetry 98 96 Oxygen Delivery Method Room Air MDM - Weakness Lab Data Attestation: I reviewed the patient's lab results. Lab results narrative: Essentially unremarkable and reassuring 10/08/24 22:20 10/08/24 22:20 Labs: Lab Results 10/08/24 Range/Units 22:20 WBC 5.8 (4.5-11.0) X10^3/uL RBC 4.43 (4.0-5.2) X10^6/uL Hgb 13.0 (12.0-16.0) g/dL Hct 38.3 (36-46) % MCV 86.5 (80-100) fL MCH 29.2 (26-34) PG MCHC 33.8 (30-36) % RDW 13.5 (11.6-14.8) % Plt Count 219 (150-400) X10^3/uL Neut % (Auto) 56.1 (50-75) % Lymph % (Auto) 34.4 (25-40) % [place] % (Auto) 7.4 (3-14) % Eos % (Auto) 1.4 L (2-4) % Baso % (Auto) 0.7 (0-2) % Neut # (Auto) 3200 (8084-8460) /uL Lymph # (Auto) 2000 (8065-9995) /uL [place] # (Auto) 400 (0-900) /uL Eos # (Auto) 100 (0-450) /uL Baso # (Auto) 0 (0-100) /uL PT 14.7 H (9.4-12.5) SECONDS INR 1.3 (0.9-1.3) APTT 40 H (25.1-36.5) SECONDS Sodium 140 (137-145) mmol/L Potassium 3.8 (3.4-5.1) mmol/L Chloride 104 (98-107) mmol/L Carbon Dioxide 27 (22-32) mmol/L BUN 14 (7-17) mg/dL Creatinine 0.84 (0.52-1.04) mg/dL Estimated GFR > 60 (>60) mL/min BUN/Creatinine Ratio 16.7 (6-22) Glucose 109 H (70-99) mg/dL Calcium 9.2 (8.4-10.2) mg/dL Magnesium 2.0 (1.6-2.3) mg/dL Total Bilirubin 0.5 (0.2-1.3) mg/dL AST 31 (14-36) IU/L ALT 33 (<35) IU/L Alkaline Phosphatase 70 (38-126) U/L Total Creatine Kinase 63 (30-135) U/L Troponin I < 0.012 (0.01-0.034) ng/mL NT-Pro-B Natriuret Pep 23 (<125) pg/mL Total Protein 8.0 (6.3-8.2) g/dL Albumin 4.7 (3.5-5.0) g/dL Globulin 3.3 (1.7-4.1) g/dL Albumin/Globulin Ratio 1.4 (1.0-2.8) Lipase 135 (23-300) U/L Imaging Data Chest x-ray: My Impression: Unremarkable. No acute disease ECG Data Attestation: I personally reviewed and interpreted this ECG as follows: (Sinus bradycardia at 58. Poor R-wave progression. Otherwise unremarkable with no ischemic changes. Intervals are normal.) MDM Narrative Medical decision making narrative: Patient has multiple somatic complaints including transient facial numbness and burning in the ear. She has chronic esophageal pressure feelings which have been evaluated by Cardiology and determined to be possible esophageal spasms. She is scheduled for a GI consultation in 2 days. She has also had leg weakness but is able to ambulate. Her workup in the ER including chest x-ray, EKG, lab work and physical exam is reassuring and unremarkable. Possible she has underlying anxiety and somatization issues adding to her perception of symptoms. In any case she is stable for discharge home and needs no further workup in the ER. She will follow up with primary care regarding her symptoms she also has a gastroenterology teleconference consult on Friday Discharge Plan Departure Patient Disposition: Home Clinical Impression: Right facial numbness, Bilateral leg weakness, Atypical chest pain Instructions: DI for Atypical Chest Pain, DI for Numbness/Tingling, DI for Muscle Weakness Activity Restrictions/Additional Instructions: Plan: Monitor symptoms and follow up with your doctor to discuss any further workup. Continue with Gastroenterology consultation for possible esophageal symptoms. May need Neurology consultation if weakness or numbness symptoms persist. Prescriptions: No Action hydrocodone-acetaminophen 5-325 mg tablet 1 tab PO Q4-6H PRN (Reason: pain) Qty: 14 0RF lisinopril 10 mg tablet 10 mg PO DAILY Qty: 30 0RF cyclobenzaprine 10 mg tablet 10 mg PO TID PRN (Reason: muscle spasm) Qty: 15 0RF naproxen 500 mg tablet,delayed release (DR/EC) 500 mg PO Q12H PRN (Reason: pain) Qty: 20 0RF cyclobenzaprine 10 mg tablet 10 mg PO TID PRN (Reason: muscle spasm) Qty: 15 0RF Eliquis 5 mg tablet 5 mg PO BID diltiazem HCl 180 mg capsule,extended release 24 hr 180 mg PO DAILY Qty: 30 0RF Referrals: Paco Angel MD [Primary Care Provider, [facility]] Stand Alone Forms: Patient Portal/API
== END 2024-10-09 01:20 | disposition home or self-care (01) ==
PROVIDERS: Emergency Provider Emergency Medicine; PCP Family Medicine
DX: R20.0 Anesthesia of skin (principal); R53.1 Weakness; R07.89 Other chest pain
CPT/HCPCS: 71045; 80053; 82550; 83690; 83735; 83880; 84484; 85025; 85610; 85730; 93005; 99281; 99284

== ENCOUNTER 2024-11-25 13:03 | Emergency (ER) | payer OTHER, SELFPAY ==
[2022-07-16 14:42] VITALS: BMI 35.9
[2024-11-25 13:07] VITALS: BP 169/82; PULSE 78; RESP 16; TEMP 36.8; O2SAT 100; BMI 34.4
--- NOTE | 2024-11-25 13:15 | ED.HEATRA ---
HPI - Head Injury General Chief complaint: Trauma Stated complaint: Fell off ladder hit head, On blood thinners Time Seen by Provider: 11/25/24 13:14 History of Present Illness HPI Narrative: Modified trauma activated Primary survey A -airway intact B -equal breath sounds C -strong heart sounds D -no gross deformity E -patient in gown Patient here for complaints of right side face and head pain. Patient is on Eliquis for history of atrial fibrillation. Patient was on a step ladder about 2 or 3 ft off the ground picking apples lost her balance and hit her head against a trailer hitch. No loss of consciousness. Has blurry vision no. As burning sensation to the right side of the face and head. She states she bumped her right thigh and hip pelvis but does not want x-ray imaging as she is freely moving right leg and lower extremity without any discomfort. Denies any other injuries. Related Data Home Medications ?Medication ?Instructions ?Recorded ?Confirmed apixaban 5 mg tablet (Eliquis) 5 mg PO BID 01/25/23 08/16/24 Previous Rx's ?Medication ?Instructions ?Recorded cyclobenzaprine 10 mg tablet 10 mg PO TID PRN muscle spasm #15 04/18/19 tabs naproxen 500 mg tablet,delayed 500 mg PO Q12H PRN pain #20 tabs 04/18/19 release hydrocodone 5 mg-acetaminophen 325 1 tab PO Q4-6H PRN pain #14 tabs 05/15/ mg tablet lisinopril 10 mg tablet 10 mg PO DAILY #30 tabs 03/06/21 diltiazem HCl 180 mg capsule,24 180 mg PO DAILY #30 caps 03/26/23 hr,extended release cyclobenzaprine 10 mg tablet 10 mg PO TID PRN muscle spasm #15 05/12/23 tabs Allergies Allergy/AdvReac Type Severity Reaction Status Date / Time morphine (MORPHINE) Allergy Mild Swelling Verified 11/25/24 13:13 of Lip/Tongue/Throat oxycodone (From PERCOCET) Allergy Unknown unknown Verified 11/25/24 13:13 Review of Systems Review of Systems Narrative: GENERAL: Negative chills, fatigue, malaise, fever, sweats. HEENT: Negative sinus pain, ear pain, sore throat RESPIRATORY: Negative dyspnea, cough CARDIOVASCULAR: Negative chest pain, palpitations GASTROINTESTINAL: Negative vomiting, nausea, abdominal pain : Negative dysuria, frequency, hematuria MUSCULOSKELETAL: Positive muscle or bony pain SKIN: Negative rash, skin lesions NEUROLOGIC: Negative weakness, numbness ROS Unobtainable: All systems reviewed & are unremarkable except as noted in HPI and below Patient History Medical History Hypertension Acute carpal tunnel syndrome of right wrist Lumbar back pain with radiculopathy affecting right lower extremity Surgical History No significant past surgical history Status post surgery (07/18/08) Social History household members: significant other alcohol intake frequency: a few times a week Alcohol type: wine Exam Narrative Exam Narrative: GENERAL: in no distress, not toxic not dyspneic HEAD: Normocephalic. Mild tenderness to the right temporal scalp and parietal scalp and zygomatic arch but there is no bruising skin injury edema abrasion no crepitus or step-off. EYES: Pupils equal round, PERRLA ENT: Mucous membranes moist. NECK: Trachea midline. CARDIOVASCULAR: Regular rate and rhythm RESPIRATORY: Clear to auscultation. Breath sounds equal bilaterally. No wheezes, rales, or rhonchi. GASTROINTESTINAL: Abdomen soft, non-tender EXTREMITIES: No gross deformities. Nontender bilateral shoulders elbows wrists pelvis hips knees and ankles BACK: No flank tenderness. NEURO: AOx4. Clear speech no facial droop light touch intact bilateral face hands and legs steady. Gait in hallway. No ataxia and nonantalgic. SKIN: Warm and dry PSYCH: Not anxious, is cooperative Initial Vital Signs Initial Vital Signs: Vital Signs Temperature 98.3 F 11/25/24 13:07 Pulse Rate 78 11/25/24 13:07 Respiratory Rate 16 11/25/24 13:07 Blood Pressure 169/82 H 11/25/24 13:07 Pulse Oximetry 100 11/25/24 13:07 Oxygen Delivery Method Room Air 11/25/24 13:07 Course Orders Ordered: ED Orders 11/25/24 13:15 CT cervical spine wo con Stat CT facial bones wo con Stat CT head/brain wo con Stat Vital Signs Vital signs: Vital Signs - 8 hr 11/25/24 13:07 Temperature 98.3 F Pulse Rate 78 Respiratory Rate 16 Blood Pressure 169/82 H Pulse Oximetry 100 Oxygen Delivery Method Room Air MDM - Head Injury Imaging Data CT scan - head: Radiologist's Impression: [address] [address] [address] Scan Report Signed Patient: Akua Khalil MR#: [id number] : 1965 Acct:[id number] Age/Sex: 59 / F Date of Service: 11/25/24 Loc: ED Accession Number: [id number] Procedure: CT head/brain wo con Ordering Provider: Booker Ochoa MD PROCEDURE: CT HEAD/BRAIN WO CON INDICATIONS: Fall/right side pain TECHNIQUE: Noncontrast 4.5 mm thick angled axial sections acquired from the foramen magnum to the vertex, with coronal and sagittal reformats. For radiation dose reduction, the following was used: automated exposure control, adjustment of mA and/or kV according to patient size. COMPARISON: [facility], CT, CT FACIAL BONES WO CON, 11/25/2024, 13:23. [facility], CT, CT HEAD/BRAIN WO CON, 07/17/2022, 10:10. FINDINGS: Image quality: Diagnostic. CSF spaces: Basal cisterns are patent. No extra-axial fluid collections. Ventricles are normal in size and shape. Brain: No midline shift. No intracranial mass effect or hemorrhage. Vázquez-white matter interface is normal. Skull and face: Calvarium and visualized facial bones are intact, without suspicious lesions. Sinuses: Visualized sinuses and mastoids are clear. IMPRESSION: No acute intracranial pathology. Dictated by: Elie Colin M.D. on 11/25/2024 at 14:44 Approved by: Elie Colin M.D. on 11/25/2024 at 14:45 CT - cervical spine: Radiologist's Impression: [address] [address] [address] Scan Report Signed Patient: Akua Khalil MR#: [id number] : 1965 Acct:[id number] Age/Sex: 59 / F Date of Service: 11/25/24 Loc: ED Accession Number: [id number] Procedure: CT cervical spine wo con Ordering Provider: Booker Ochoa MD PROCEDURE: CT CERVICAL SPINE WO CON INDICATIONS: Fall/right side pain TECHNIQUE: Noncontrast 3 mm thick sections acquired from the skull base to the T4 level. Sagittal and coronal reformats were then constructed. For radiation dose reduction, the following was used: automated exposure control, adjustment of mA and/or kV according to patient size. COMPARISON: [facility], CT, CT CERVICAL SPINE WO CON, 04/18/2019, 12:36. FINDINGS: Image quality: Excellent. Bones: No fractures or dislocations. Mild cervical spondylosis. Visualized superior ribs are intact. Soft tissues: Prevertebral soft tissues are normal in thickness. No paravertebral hematomas. No apical pneumothoraces. IMPRESSION: No displaced fracture or traumatic subluxation. Dictated by: Elie Colin M.D. on 11/25/2024 at 14:46 Approved by: Elie Colin M.D. on 11/25/2024 at 14:47 CT face: Radiologist's Impression: [place] [address] CT Scan Report Signed Patient: Akua Khalil MR#: [id number] : 1965 Acct:[id number] Age/Sex: 59 / F Date of Service: 11/25/24 Loc: ED Accession Number: [id number] Procedure: CT facial bones wo con Ordering Provider: Booker Ochoa MD PROCEDURE: CT FACIAL BONES WO CON INDICATIONS: Fall/right side pain TECHNIQUE: Noncontrast 2.5 mm thick axial images acquired from the mandible through the frontal sinuses, with coronal and sagittal reformatting. For radiation dose reduction, the following was used: automated exposure control, adjustment of mA and/or kV according to patient size. COMPARISON: None. FINDINGS: Image quality: Excellent. Bones and teeth: Orbital cornelius are intact. Sinus cornelius show no fracture or deformity. Nasal bones and septum are intact. Visualized portions of the mandible demonstrate no fractures or subluxation. Zygomatic arches are intact. Pterygoid plates are intact. Visualized portions of the skull base and auditory canals are intact. Sinuses: Paranasal sinuses are aerated, without fluid levels, mucosal thickening, or mucoceles. Mastoid air cells are aerated. Soft tissues: No edema, masses, or fluid collections. No enlarged lymph nodes. No soft tissue lacerations or debris. Vascular: Visualized vascular structures appear normal in the absence of contrast. Bony vascular foramina and canals are intact. IMPRESSION: No displaced facial bone fracture or mandibular fracture. Dictated by: Elie Colin M.D. on 11/25/2024 at 14:45 Approved by: Elie Colin M.D. on 11/25/2024 at 14:46 [facility] Narrative Medical decision making narrative: of consciousness. Has blurry vision no. As burning sensation to the right side of the face and head. She states she bumped her right thigh and hip pelvis but does not want x-ray imaging as she is freely moving right leg and lower extremity without any discomfort. Denies any other injuries MDM After history and exam, CT face cervical spine head, exam is reassuring. No blood work indicated at this time no EKG. Differential considered: Includes but not limited to facial fracture skull fracture intracranial bleed scalp contusion face contusion Medical records reviewed: No recent visit for this complaint Imaging studies independently reviewed: CT head face cervical spine no acute finding Consultations: None indicated at this time Re-evaluations: 3:15 p.m.. Updated patient results. Patient neurologically intact. Pain is controlled. Return precautions reviewed. She will not take her Eliquis tonight but will resume tomorrow. Discussion: Appropriate for discharge home. Exam is reassuring. Return precautions reviewed with patient. She desires discharge home. Head injury instructions reviewed with her. Diagnosis: Head contusion Discharge Plan Departure Patient Disposition: Home Clinical Impression: Contusion of head Qualifiers: Encounter type: initial encounter Contusion of head detail: unspecified part of head Qualified Code(s): S00.93XA - Contusion of unspecified part of head, initial encounter Instructions: DI for Contusion, DI for Closed Head Injury Activity Restrictions/Additional Instructions: Your exam and CAT scan imaging are reassuring. No broken bones or internal bleeding seen on the CAT scan imaging. Please do not take your Eliquis tonight. But do continue it tomorrow morning. May continue Tylenol for pain. May use cool packs to the head 20 minutes at a time as needed for pain and swelling. Please see your family doctor next week for re-evaluation. Return if worse if any questions or concerns. Please review closed-head injury information printed for you. Prescriptions: No Action hydrocodone-acetaminophen 5-325 mg tablet 1 tab PO Q4-6H PRN (Reason: pain) Qty: 14 0RF lisinopril 10 mg tablet 10 mg PO DAILY Qty: 30 0RF cyclobenzaprine 10 mg tablet 10 mg PO TID PRN (Reason: muscle spasm) Qty: 15 0RF naproxen 500 mg tablet,delayed release (DR/EC) 500 mg PO Q12H PRN (Reason: pain) Qty: 20 0RF cyclobenzaprine 10 mg tablet 10 mg PO TID PRN (Reason: muscle spasm) Qty: 15 0RF Eliquis 5 mg tablet 5 mg PO BID diltiazem HCl 180 mg capsule,extended release 24 hr 180 mg PO DAILY Qty: 30 0RF Referrals: Paco Angel MD [Primary Care Provider, [facility]] Stand Alone Forms: Patient Portal/API
[2024-11-25 15:13] VITALS: BP 127/65; PULSE 64; O2SAT 99
== END 2024-11-25 15:34 | disposition home or self-care (01) ==
PROVIDERS: Emergency Provider Emergency Medicine; PCP Family Medicine
DX: S00.93XA Contusion of unspecified part of head, initial encounter (principal); W11.XXXA Fall on and from ladder, initial encounter; Z79.01 Long term (current) use of anticoagulants
CPT/HCPCS: 70450; 70486; 72125; 99283; 99284

== ENCOUNTER → 2025-02-14 08:15 | Outpatient (CLI) | payer OTHER, SELFPAY ==
[2022-07-16 14:42] VITALS: BMI 35.9
--- NOTE | 2025-02-14 08:58 | DI.MRI.S_ITS ---
PROCEDURE: MR HEAD/BRAIN WO CON INDICATIONS: Post concussion syndrome TECHNIQUE: Non-contrast axial T1 spin echo, axial T2 fast spin echo, sagittal and axial FLAIR, coronal T2 fast spin echo, axial gradient echo, axial diffusion and ADC through the brain. COMPARISON: [facility], , MR HEAD/BRAIN WO CON, 08/15/2022, 14:41. FINDINGS: Image quality: Excellent. CSF spaces: Ventricles appear symmetric in size and shape. Basal cisterns are patent. No extra-axial fluid collections. Brain: No intracranial bleeds or mass effects. There are minimal periventricular and deep white matter chronic small vessel ischemic changes. Brainstem appears normal. Diffusion-weighted images show no acute infarct. No chronic ischemic insults. Normal intravascular flow voids are present. Skull and face: Calvarial bone marrow is normal in signal. Orbits are normal. Sinuses: Sinuses and mastoids are clear. IMPRESSION: No acute intracranial abnormalities. Age-appropriate appearance of the brain. Dictated by: Sandor Esteban M.D. on 02/14/2025 at 11:08 Approved by: Sandor Esteban M.D. on 02/14/2025 at 11:10
== END ==
PROVIDERS: Family Provider Family Medicine; PCP Family Medicine; Referring Provider Family Medicine; Visit Provider Family Medicine
DX: F07.81 Postconcussional syndrome (principal)
CPT/HCPCS: 70551